=== PATIENT | female | born 1970 | race Two or more races ===

== ENCOUNTER 2016-06-13 15:46 | Inpatient (IN) | payer OTHER ==
[2016-06-13 16:10] VITALS: BMI 19.5
--- NOTE | 2016-06-13 17:13 | HP ---
CIWA Score - CIWA Score Nausea/Vomitin Muscle Tremors: 3 Anxiety: 3 Agitation: 3 Paroxysmal Sweats: 2 Orientation: 0-Oriented Tacttile Disturbances: 2-Mild Itch/Numbness/Burn Auditory Disturbances: 2-Mild Harshness/Frighten Visual Disturbances: 2-Mild Sensitivity Headache: 2-Mild CIWA-Ar Total Score: 22 Admission ROS BHS - HPI Chief Complaint: i need help from alcohol and cocaine Allergies/Adverse Reactions: Allergies Allergy/AdvReac Type Severity Reaction Status Date / Time thiamine (vitamin B1) AdvReac Itching Verified 06/13/16 17:15 History of Present Illness: this 45 years old female with alcohol dependence and cocaine dependence, withdrawal symptom,last detox [facility] 04/01/16 to 04/06/16 syncope alcohol related type 2 dm anxiety and depression nicotine dependence relapsed for last 2 months Exam Limitations: No Limitations - Ebola screening Have you traveled outside of the country in the last 21 days: No Have you had contact with anyone from an Ebola affected area: No Have you been sick,other than usual withdrawal symptoms: No Do you have a fever: No - Review of Systems Constitutional: Loss of Appetite, Malaise, Night Sweats, Changes in sleep, Weakness EENT: reports: Nose Congestion Respiratory: reports: No Symptoms reported Cardiac: reports: Palpitations GI: reports: Nausea, Vomiting, Abdominal cramping Musculoskeletal: reports: No Symptoms Reported Integumentary: reports: Dryness Neuro: reports: Headache, Tremors Endocrine: reports: No Symptoms Reported Hematology: reports: No Symptoms Reported Psychiatric: reports: Anxious, Depressed Patient History - Patient Medical History Hx Anemia: No Hx Asthma: Yes Hx Chronic Obstructive Pulmonary Disease (COPD): No Hx Cancer: No Hx Cardiac Disorders: No Hx Congestive Heart Failure: No Hx Hypertension: No Hx Hypercholesterolemia: No Hx Pacemaker: No HX Cerebrovascular Accident: No Hx Seizures: No Hx Dementia: No Hx Diabetes: Yes (on med) Hx Gastrointestinal Disorders: No Hx Liver Disease: No Hx Genitourinary Disorders: No Hx Sexually Transmitted Disorders: No Hx Renal Disease (ESRD): No Hx Thyroid Disease: No Hx Human Immunodeficiency Virus (HIV): No (last 09/25 negative) Hx Hepatitis C: No Hx Depression: Yes (anxiety) Hx Suicide Attempt: No Hx Bipolar Disorder: No Hx Schizophrenia: No Other Medical History: no suicidal,no homicidal - Patient Surgical History Past Surgical History: No Hx Neurologic Surgery: No Hx Cataract Extraction: No Hx Cardiac Surgery: No Hx Lung Surgery: No Hx Breast Surgery: No Hx Breast Biopsy: No Hx Abdominal Surgery: No Hx Appendectomy: No Hx Cholecystectomy: No Hx Genitourinary Surgery: No Hx Section: No Hx Orthopedic Surgery: No Hx Hysterectomy: No Anesthesia Reaction: No - PPD History Previous Implant?: Yes Documented Results: Negative w/proof Date: 11/02/15 Results: 0 mm PPD to be Administered?: No - Reproductive History Last Menstrual Period: 03/21/16 Patient : No - Smoking Cessation Smoking history: Former smoker Have you smoked in the past 12 months: Yes Aproximately how many cigarettes per day: 7 If you are a former smoker, when did you quit?: 03/2016 Cigars Per Day: 0 Hx Chewing Tobacco Use: No Initiated information on smoking cessation: Yes 'Breaking Loose' booklet given: 06/13/16 - Substance & Tx. History Hx Alcohol Use: Yes Hx Substance Use: Yes Substance Use Type: Alcohol, Cocaine Hx Substance Use Treatment: Yes ([facility] 04/01/16 to 04/06/16) - Substances Abused Alcohol Route: Oral Frequency: Daily Amount used: 4 pints Vodka Age of first use: 17 Date of Last Use: 06/12/16 Cocaine Route: Inhalation Frequency: Daily Amount used: 2 bags Age of first use: 19 Date of Last Use: 06/12/16 Family Disease History - Family Disease History Family Disease History: Diabetes: Father (HTN,HYPERCHOLESTEROLEMIA), Mother (HTN ,HYPERCHOLESTEROLEMIA), Heart Disease: Father, Mother Admission Physical Exam [facility] - Vital Signs Vital Signs: Vital Signs - 24 hr 06/13/16 16:07 Temperature 95.6 F L Pulse Rate 101 H Respiratory 20 Rate Blood Pressure 110/68 - Physical General Appearance: Yes: Moderate Distress, Tremorous, Irritable, Sweating, Anxious HEENTM: Yes: Nasal Congestion Respiratory: Yes: Lungs Clear Neck: Yes: Within Normal Limits Breast: Yes: Breast Exam Deferred Cardiology: Yes: Within Normal Limits, Regular Rhythm, Regular Rate, S1, S2 Abdominal: Yes: Within Normal Limits, Normal Bowel Sounds, Non Tender, Flat, Soft Genitourinary: Yes: Within Normal Limits Back: Yes: Muscle Spasm Musculoskeletal: Yes: Back pain, Muscle Pain Extremities: Yes: Tremors Neurological: Yes: safety attendant II-XII NML intact, Fully Oriented, Alert, Motor Strength 5/5 Integumentary: Yes: Within Normal Limits, Dry - Diagnostic (1) Alcohol dependence with uncomplicated withdrawal Current Visit: No Status: Acute (2) Cocaine dependence Current Visit: No Status: Acute Qualifiers: Substance use status: uncomplicated Qualified Code(s): F14.20 - Cocaine dependence, uncomplicated (3) Type II diabetes mellitus Current Visit: No Status: Chronic Qualifiers: Diabetes mellitus complication status: without complication Diabetes mellitus exterminator helper insulin use: with snf use Qualified Code(s): E11.9 - Type 2 diabetes mellitus without complications (4) Nicotine dependence Current Visit: Yes Status: Acute (5) Anxiety and depression Current Visit: Yes Status: Acute (6) Syncope Current Visit: Yes Status: Acute Cleared for Admission S - Detox or Rehab [facility] Level of Care: Medically Managed Detox Regimen/Protocol: Librium S Breath Alcohol Content Breath Alcohol Content: 0 Urine Pregancy Test - Result Urine Test Results: Negative- NO Line Present Urine Drug Screen - Results Drug Screen Negative: No Urine Drug Screen Results: ANNITA-Cocaine
[2016-06-13] MEDS ORDERED: guaiFENesin/D-METHORPHAN HB 10 ML UNIT-DOSE CUPS PO PRN (17:27)
[2016-06-13] MEDS ORDERED: MAGNESIUM CITRATE 300 ML BOTTLE PO PRN (17:27)
[2016-06-13] MEDS ORDERED: ACETAMINOPHEN 325 MG TABLET (FP) PO PRN (17:27)
[2016-06-13] MEDS ORDERED: MAGNESIUM HYDROX 2400MG/30ML ORAL SUSPENSION 30 ML CUP PO PRN (17:27)
[2016-06-13] MEDS ORDERED: chlordiazePOXIDE HCL 25 MG CAPSULE PO PRN (17:27)
[2016-06-13] MEDS ORDERED: LOPERAMIDE HCL 2 MG CAPSULE PO PRN (17:27)
[2016-06-13] MEDS ORDERED: P-EPHED 60MG/TRIPROLIDI 2.5MG TABLET PO PRN (17:27)
[2016-06-13] MEDS ORDERED: MENTHOL/PHENOL 1 EACH UD MM PRN (17:27)
[2016-06-13] MEDS ORDERED: chlordiazePOXIDE HCL 25 MG CAPSULE PO ONE (17:27)
[2016-06-13] MEDS ORDERED: ALBUTEROL SO4 6.7 GM HFA INHALER IH PRN (17:30)
[2016-06-13] MEDS ORDERED: INSULIN (NOVOLOG) ASPART 100 UNITS/ML 10ML VIAL SQ ONE (17:33)
[2016-06-13] MEDS ORDERED: INSULIN (NOVOLOG) ASPART 100 UNITS/ML 10ML VIAL ONE (18:35)
[2016-06-13] MEDS: NICOTINE 21 MG/24 HOURS TOPICAL PATCH TD SCH (18:42)
[2016-06-13] MEDS ORDERED: THIAMINE HCL 100 MG TABLET (FP) PO SCH (22:00)
[2016-06-13] MEDS: diphenhydrAMINE HCL 50 MG CAPSULE PO PRN (22:20)
[2016-06-13] MEDS: chlordiazePOXIDE HCL 25 MG CAPSULE PO SCH (22:20)
[2016-06-13] MEDS: INSULIN SLIDING SCALE (NOVOLOG) 1 VIAL SQ SCH (23:16)
[2016-06-14 00:16] LABS: URINE APPEARANCE CLEAR; URINE BILIRUBIN NEGATIVE (NEGATIVE); URINE COLOR STRAW; URINE GLUCOSE (UA) 3+ (NEGATIVE); URINE KETONE NEGATIVE (NEGATIVE); URINE LEUK ESTERASE NEGATIVE (NEGATIVE); URINE NITRITE NEGATIVE (NEGATIVE); URINE PROTEIN NEGATIVE (NEGATIVE); URINE UROBILINOGEN NEGATIVE E.U./dl (0.2-1.0)
[2016-06-14 00:33] LABS: URINE BLOOD 1+ (NEGATIVE)
[2016-06-14 01:42] LABS: URINE BACTERIA RARE /hpf (NONE SEEN); URINE MUCUS RARE; URINE RBC 2 /hpf (0-3); URINE WBC 2 /hpf (3-5)
[2016-06-14] MEDS: chlordiazePOXIDE HCL 25 MG CAPSULE PO SCH ×4 (05:17→22:10)
[2016-06-14] MEDS ORDERED: INSULIN (NOVOLOG) ASPART 100 UNITS/ML 10ML VIAL ONE ×4 (07:49→22:13)
[2016-06-14] MEDS: INSULIN SLIDING SCALE (NOVOLOG) 1 VIAL SQ SCH ×4 (07:54→22:11)
--- NOTE | 2016-06-14 09:38 | PN ---
S CIWA - CIWA Score Nausea/Vomitin Muscle Tremors: 3 Anxiety: 3 Agitation: 2 Paroxysmal Sweats: 1-Minimal Palms Moist Orientation: 0-Oriented Tacttile Disturbances: 1-Very Mild Itch/Numbness Auditory Disturbances: 1-Very Mild Visual Disturbances: 1-Very Mild Sensitivity Headache: 2-Mild CIWA-Ar Total Score: 17 BHS Progress Note (SOAP) Subjective: ALERT,IRRITABLE,ANXIOUS,INTERRUPTED SLEEP,TREMOR Objective: 06/14/16 09:36 Vital Signs Temperature 97.1 F L 06/14/16 06:31 Pulse Rate 97 H 06/14/16 06:31 Respiratory Rate 20 06/14/16 06:31 Blood Pressure 125/67 06/14/16 06:31 O2 Sat by Pulse Oximetry (%) EKG NSR,NORMAL ECG 06/14/16 09:37 Laboratory Last Values POC Glucometer 111 UNITS (()) 06/13/16 21:09 Urine Color Straw 06/13/16 23:58 Urine Appearance Clear 06/13/16 23:58 Urine pH 5.0 (5.0-8.0) 06/13/16 23:58 Ur Specific [place] 1.029 (1.001-1.035) 06/13/16 23:58 Urine Protein Negative (NEGATIVE) 06/13/16 23:58 Urine Glucose (UA) 3+ (NEGATIVE) H 06/13/16 23:58 Urine Ketones Negative (NEGATIVE) 06/13/16 23:58 Urine Blood 1+ (NEGATIVE) H 06/13/16 23:58 Urine Nitrite Negative (NEGATIVE) 06/13/16 23:58 Urine Bilirubin Negative (NEGATIVE) 06/13/16 23:58 Urine Urobilinogen Negative E.U./dl (0.2-1.0) 06/13/16 23:58 Ur Leukocyte Esterase Negative (NEGATIVE) 06/13/16 23:58 Urine RBC 2 /hpf (0-3) 06/13/16 23:58 Urine WBC 2 /hpf (3-5) 06/13/16 23:58 Ur Epithelial Cells Rare /hpf (FEW) 06/13/16 23:58 Urine Bacteria Rare /hpf (NONE SEEN) 06/13/16 23:58 Urine Mucus Rare 06/13/16 23:58 Assessment: 06/14/16 09:37 WITHDRAWAL SYMPTOM Plan: CONTINUE DETOX
[2016-06-14] MEDS ORDERED: metFORMIN HCL 500 MG TABLET (FP) PO SCH (10:00)
[2016-06-14 10:16] LABS: MCH 31.7 pg (25.7-33.7); MCHC 33.6 g/dl (32.0-36.0); MEAN CELL VOLUME 94.5 fl (80-96); MEAN PLT VOLUME 9.3 fl (7.5-11.1); PLATELET COUNT 223 K/MM3 (134-434); RDW 12.8 % (11.6-15.6); WHITE BLOOD COUNT 6.4 K/mm3 (4.0-10.0)
[2016-06-14] MEDS: PRENATAL VITAMINS W/ FOLIC ACID TABLET (FP) PO SCH (10:34)
[2016-06-14] MEDS: NICOTINE 21 MG/24 HOURS TOPICAL PATCH TD SCH (10:34)
[2016-06-14 10:47] LABS: ALBUMIN 3.1 g/dl (3.4-5.0); ALK PHOS 94 U/L (45-117); ANION GAP 13 (8-16); BILIRUBIN,TOTAL 0.2 mg/dL (0.2-1.0); CALCIUM 8.5 mg/dL (8.5-10.1); CO2 25 mmol/L (21-32); CREATININE 0.9 mg/dL (0.55-1.02); GLUCOSE,RANDOM 263 mg/dL (74-106); SGOT/AST 12 U/L (15-37); SGPT/ALT 16 U/L (12-78)
[2016-06-14] MEDS: IBUPROFEN 400 MG TABLET (FP) PO PRN (17:34)
[2016-06-14] MEDS ORDERED: THIAMINE HCL 100 MG TABLET (FP) PO SCH (22:00)
[2016-06-14] MEDS: diphenhydrAMINE HCL 50 MG CAPSULE PO PRN (22:15)
[2016-06-14] MEDS: NICOTINE POLACRILEX 2 MG GUM BC PRN (22:16)
[2016-06-15] MEDS: diphenhydrAMINE HCL 50 MG CAPSULE PO PRN ×2 (00:28→23:19)
[2016-06-15] MEDS: chlordiazePOXIDE HCL 25 MG CAPSULE PO SCH ×3 (05:20→17:14)
[2016-06-15] MEDS ORDERED: INSULIN (NOVOLOG) ASPART 100 UNITS/ML 10ML VIAL ONE ×4 (07:50→21:41)
[2016-06-15] MEDS: INSULIN SLIDING SCALE (NOVOLOG) 1 VIAL SQ SCH ×4 (07:51→22:42)
--- NOTE | 2016-06-15 09:57 | CONSULT ---
[facility] Psychiatric Consult - Data Date of interview: 06/15/16 Admission source: [facility] Identifying data: This is 45 years old female with psychiatric hospitalization history intoxicated with: AQlcohol. Cocaine and Cannabis Substance Abuse History: - Smoking Cessation. Smoking history: Former smoker. Have you smoked in the past 12 months: Yes. Aproximately how many cigarettes per day: 7. If you are a former smoker, when did you quit?: 03/2016. Cigars Per Day: 0. Hx Chewing Tobacco Use: No. Initiated information on smoking cessation: Yes. 'Breaking Loose' booklet given: 06/13/16. - Substance & Tx. History. Hx Alcohol Use: Yes. Hx Substance Use: Yes. Substance Use Type: Alcohol, Cocaine. Hx Substance Use Treatment: Yes ([facility] 04/01/16 to 04/06/16). - Substances Abused. Alcohol. Route: Oral. Frequency: Daily. Amount used: 4 pints Vodka. Age of first use: 17. Date of Last Use: 06/12/16. Cocaine. Route: Inhalation. Frequency: Daily. Amount used: 2 bags. Age of first use: 19. Date of Last Use: 06/12/16 Medical History: HTN, Head injury history, Hyperlipidemia, DM-2 Psychiatric History: Patient reports history of depression and anxiety, reports most recent psychiatric admission on 2014 at [facility], reports taking prior to admikssion: no medications Physical/Sexual Abuse/Trauma History: Denies Additional Comment: Observation. Detox Unit Care Protocol Mental Status Exam - Mental Status Exam Alert and Oriented to: Person Cognitive Function: Fair Patient Appearance: Unkempt Mood: Sad Affect: Flat Patient Behavior: Sedated Speech Pattern: Delayed Voice Loudness: Mildly Soft/Quiet Thought Process: Circumstantial Thought Disorder: Being Controlled Hallucinations: Denies Suicidal Ideation: Denies Homicidal Ideation: Denies Insight/Judgement: Fair Sleep: Difficulty falling asleep Appetite: Fair Muscle strength/Tone: Mild Hypotonicity Gait/Station: Shuffling Additional Comments: Observation. Detox Unit Care Protocol Psychiatric Findings - Problem List ([place] 1, 2,3) (1) Anxiety and depression Current Visit: Yes Status: Acute (2) Nicotine dependence Current Visit: Yes Status: Acute (3) Alcohol dependence with uncomplicated withdrawal Current Visit: No Status: Acute (4) Cocaine dependence Current Visit: No Status: Acute Qualifiers: Substance use status: uncomplicated Qualified Code(s): F14.20 - Cocaine dependence, uncomplicated (5) Marijuana dependence Current Visit: No Status: Acute (6) Mood disorder Current Visit: No Status: Acute (7) Substance-induced sleep disorder Current Visit: No Status: Acute (8) Cocaine abuse without complication Current Visit: No Status: Chronic (9) Substance induced mood disorder Current Visit: No Status: Suspected - Initial Treatment Plan Initial Treatment Plan: Observation. Detox Unit Care Protocol
--- NOTE | 2016-06-15 10:10 | PN ---
[facility] CIWA - CIWA Score Nausea/Vomitin-No Nausea/No Vomiting Muscle Tremors: 4-Moderate,w/Arms Extend Anxiety: 3 Agitation: 4-Moderately Restless Paroxysmal Sweats: 3 Orientation: 0-Oriented Tacttile Disturbances: 0-None Auditory Disturbances: 0-None Visual Disturbances: 0-None Headache: 1-Very Mild CIWA-Ar Total Score: 15 S Progress Note (SOAP) Subjective: body aches sweats shakes interrupted sleep agitation headache Objective: 06/15/16 10:09 Vital Signs Temperature 96.8 F L 06/15/16 06:00 Pulse Rate 105 H 06/15/16 06:00 Respiratory Rate 18 06/15/16 06:00 Blood Pressure 139/76 06/15/16 06:00 O2 Sat by Pulse Oximetry (%) Laboratory Tests 06/13/16 06/13/16 06/13/16 16:48 21:09 23:58 WBC RBC Hgb Hct MCV MCHC RDW Plt Count MPV Sodium Potassium Chloride Carbon Dioxide Anion Gap BUN Creatinine Creat Clearance w eGFR POC Glucometer 476 111 Random Glucose Calcium Total Bilirubin AST ALT Alkaline Phosphatase Total Protein Albumin Urine Color Straw Urine Appearance Clear Urine pH 5.0 Ur Specific [place] 1.029 Urine Protein Negative Urine Glucose (UA) 3+ H Urine Ketones Negative Urine Blood 1+ H Urine Nitrite Negative Urine Bilirubin Negative Urine Urobilinogen Negative Ur Leukocyte Esterase Negative Urine RBC 2 Urine WBC 2 Ur Epithelial Cells Rare Urine Bacteria Rare Urine Mucus Rare RPR Titer 06/14/16 06/14/16 06/14/16 05:18 08:00 08:00 WBC 6.4 RBC 3.82 Hgb 12.1 Hct 36.1 MCV 94.5 MCHC 33.6 RDW 12.8 Plt Count 223 MPV 9.3 Sodium 138 Potassium 3.7 Chloride 100 Carbon Dioxide 25 Anion Gap 13 BUN 16 Creatinine 0.9 D Creat Clearance w eGFR > 60 POC Glucometer 200 Random Glucose 263 H D Calcium 8.5 Total Bilirubin 0.2 D AST 12 L ALT 16 Alkaline Phosphatase 94 Total Protein 6.0 L Albumin 3.1 L Urine Color Urine Appearance Urine pH Ur Specific [place] Urine Protein Urine Glucose (UA) Urine Ketones Urine Blood Urine Nitrite Urine Bilirubin Urine Urobilinogen Ur Leukocyte Esterase Urine RBC Urine WBC Ur Epithelial Cells Urine Bacteria Urine Mucus RPR Titer 06/14/16 06/14/1606/14/17 08:00 11:13 16:36 WBC RBC Hgb Hct MCV MCHC RDW Plt Count MPV Sodium Potassium Chloride Carbon Dioxide Anion Gap BUN Creatinine Creat Clearance w eGFR POC Glucometer 276 210 Random Glucose Calcium Total Bilirubin AST ALT Alkaline Phosphatase Total Protein Albumin Urine Color Urine Appearance Urine pH Ur Specific [place] Urine Protein Urine Glucose (UA) Urine Ketones Urine Blood Urine Nitrite Urine Bilirubin Urine Urobilinogen Ur Leukocyte Esterase Urine RBC Urine WBC Ur Epithelial Cells Urine Bacteria Urine Mucus RPR Titer Nonreactive 06/14/16 06/15/16 20:43 05:18 WBC RBC Hgb Hct MCV MCHC RDW Plt Count MPV Sodium Potassium Chloride Carbon Dioxide Anion Gap BUN Creatinine Creat Clearance w eGFR POC Glucometer 264 331 Random Glucose Calcium Total Bilirubin AST ALT Alkaline Phosphatase Total Protein Albumin Urine Color Urine Appearance Urine pH Ur Specific [place] Urine Protein Urine Glucose (UA) Urine Ketones Urine Blood Urine Nitrite Urine Bilirubin Urine Urobilinogen Ur Leukocyte Esterase Urine RBC Urine WBC Ur Epithelial Cells Urine Bacteria Urine Mucus RPR Titer awake/alert ambulating no acute distress Assessment: 06/15/16 10:09 withdrawal sx Plan: continue detox increase fluids motrin 600mg prn
[2016-06-15] MEDS: NICOTINE 21 MG/24 HOURS TOPICAL PATCH TD SCH (10:14)
[2016-06-15] MEDS: ESCITALOPRAM OXALATE 10 MG TABLET (FP) PO SCH (10:14)
[2016-06-15] MEDS: PRENATAL VITAMINS W/ FOLIC ACID TABLET (FP) PO SCH (10:14)
[2016-06-15] MEDS ORDERED: FLUCONAZOLE 50 MG TABLET PO ONE (10:15)
[2016-06-15] MEDS: NICOTINE POLACRILEX 2 MG GUM BC PRN (10:18)
--- NOTE | 2016-06-15 10:18 | PN ---
BHS Progress Note Note: pt c/o vaginal itch diflucan 150mg x one monistat vaginal cream order
[2016-06-15] MEDS: IBUPROFEN 400 MG TABLET (FP) PO PRN (10:20)
--- NOTE | 2016-06-15 11:31 | EKG ---
Test Reason : Blood Pressure : / mmHG Vent. Rate : 097 BPM Atrial Rate : 097 BPM P-R Int : 116 ms QRS Dur : 088 ms QT Int : 352 ms P-R-T Axes : 061 063 036 degrees QTc Int : 447 ms NORMAL SINUS RHYTHM NORMAL ECG NO PREVIOUS ECGS AVAILABLE Confirmed by ANTOINETTE KWAN MD ([id number]) on 06/15/2016 11:31:34 AM Referred By: Confirmed By:ANTOINETTE KWAN MD
[2016-06-15] MEDS: metFORMIN HCL 500 MG TABLET (FP) PO SCH (16:50)
[2016-06-15] MEDS: MICONAZOLE NITRATE 2% VAGINAL CREAM 45 GM TUBE VG SCH (22:40)
[2016-06-15] MEDS: chlordiazePOXIDE 5 MG CAPSULE PO SCH (22:41)
[2016-06-16] MEDS: diphenhydrAMINE HCL 50 MG CAPSULE PO PRN ×2 (02:06→22:27)
[2016-06-16] MEDS: chlordiazePOXIDE 5 MG CAPSULE PO SCH ×3 (05:50→17:43)
[2016-06-16] MEDS ORDERED: INSULIN (NOVOLOG) ASPART 100 UNITS/ML 10ML VIAL ONE ×2 (07:08→11:20)
[2016-06-16] MEDS: metFORMIN HCL 500 MG TABLET (FP) PO SCH ×2 (07:15→17:43)
[2016-06-16] MEDS: INSULIN SLIDING SCALE (NOVOLOG) 1 VIAL SQ SCH ×4 (07:15→22:25)
[2016-06-16] MEDS: ESCITALOPRAM OXALATE 10 MG TABLET (FP) PO SCH (10:48)
[2016-06-16] MEDS: PRENATAL VITAMINS W/ FOLIC ACID TABLET (FP) PO SCH (10:48)
[2016-06-16] MEDS: NICOTINE 21 MG/24 HOURS TOPICAL PATCH TD SCH (10:48)
--- NOTE | 2016-06-16 11:53 | PN ---
BHS Progress Note (SOAP) Subjective: interrupted sleep, sweats, nasal congestion, nausea Objective: 06/16/16 11:50 Last Vital Signs Temp Pulse Resp BP Pulse Ox 97.4 F L 100 H 18 124/75 06/16/16 10:42 06/16/16 10:42 06/16/16 10:42 06/16/16 10:42 Laboratory Tests 06/13/16 06/13/16 06/13/16 16:48 21:09 23:58 WBC RBC Hgb Hct MCV MCHC RDW Plt Count MPV Sodium Potassium Chloride Carbon Dioxide Anion Gap BUN Creatinine Creat Clearance w eGFR POC Glucometer 476 111 Random Glucose Calcium Total Bilirubin AST ALT Alkaline Phosphatase Total Protein Albumin Urine Color Straw Urine Appearance Clear Urine pH 5.0 Ur Specific [place] 1.029 Urine Protein Negative Urine Glucose (UA) 3+ H Urine Ketones Negative Urine Blood 1+ H Urine Nitrite Negative Urine Bilirubin Negative Urine Urobilinogen Negative Ur Leukocyte Esterase Negative Urine RBC 2 Urine WBC 2 Ur Epithelial Cells Rare Urine Bacteria Rare Urine Mucus Rare RPR Titer Hepatitis C Antibody 06/14/16 06/14/16 06/14/16 05:18 08:00 08:00 WBC 6.4 RBC 3.82 Hgb 12.1 Hct 36.1 MCV 94.5 MCHC 33.6 RDW 12.8 Plt Count 223 MPV 9.3 Sodium Potassium Chloride Carbon Dioxide Anion Gap BUN Creatinine Creat Clearance w eGFR POC Glucometer 200 Random Glucose Calcium Total Bilirubin AST ALT Alkaline Phosphatase Total Protein Albumin Urine Color Urine Appearance Urine pH Ur Specific [place] Urine Protein Urine Glucose (UA) Urine Ketones Urine Blood Urine Nitrite Urine Bilirubin Urine Urobilinogen Ur Leukocyte Esterase Urine RBC Urine WBC Ur Epithelial Cells Urine Bacteria Urine Mucus RPR Titer Hepatitis C Antibody 0.1 06/14/16 06/14/16 06/14/16 08:00 08:00 11:13 WBC RBC Hgb Hct MCV MCHC RDW Plt Count MPV Sodium 138 Potassium 3.7 Chloride 100 Carbon Dioxide 25 Anion Gap 13 BUN 16 Creatinine 0.9 D Creat Clearance w eGFR > 60 POC Glucometer 276 Random Glucose 263 H D Calcium 8.5 Total Bilirubin 0.2 D AST 12 L ALT 16 Alkaline Phosphatase 94 Total Protein 6.0 L Albumin 3.1 L Urine Color Urine Appearance Urine pH Ur Specific [place] Urine Protein Urine Glucose (UA) Urine Ketones Urine Blood Urine Nitrite Urine Bilirubin Urine Urobilinogen Ur Leukocyte Esterase Urine RBC Urine WBC Ur Epithelial Cells Urine Bacteria Urine Mucus RPR Titer Nonreactive Hepatitis C Antibody 06/14/16 06/14/16 06/15/16 16:36 20:43 05:18 WBC RBC Hgb Hct MCV MCHC RDW Plt Count MPV Sodium Potassium Chloride Carbon Dioxide Anion Gap BUN Creatinine Creat Clearance w eGFR POC Glucometer 210 264 331 Random Glucose Calcium Total Bilirubin AST ALT Alkaline Phosphatase Total Protein Albumin Urine Color Urine Appearance Urine pH Ur Specific [place] Urine Protein Urine Glucose (UA) Urine Ketones Urine Blood Urine Nitrite Urine Bilirubin Urine Urobilinogen Ur Leukocyte Esterase Urine RBC Urine WBC Ur Epithelial Cells Urine Bacteria Urine Mucus RPR Titer Hepatitis C Antibody 06/15/16 06/15/16 06/15/16 11:35 16:33 21:34 WBC RBC Hgb Hct MCV MCHC RDW Plt Count MPV Sodium Potassium Chloride Carbon Dioxide Anion Gap BUN Creatinine Creat Clearance w eGFR POC Glucometer 337 298 191 Random Glucose Calcium Total Bilirubin AST ALT Alkaline Phosphatase Total Protein Albumin Urine Color Urine Appearance Urine pH Ur Specific [place] Urine Protein Urine Glucose (UA) Urine Ketones Urine Blood Urine Nitrite Urine Bilirubin Urine Urobilinogen Ur Leukocyte Esterase Urine RBC Urine WBC Ur Epithelial Cells Urine Bacteria Urine Mucus RPR Titer Hepatitis C Antibody 06/16/16 11:08 WBC RBC Hgb Hct MCV MCHC RDW Plt Count MPV Sodium Potassium Chloride Carbon Dioxide Anion Gap BUN Creatinine Creat Clearance w eGFR POC Glucometer 321 Random Glucose Calcium Total Bilirubin AST ALT Alkaline Phosphatase Total Protein Albumin Urine Color Urine Appearance Urine pH Ur Specific [place] Urine Protein Urine Glucose (UA) Urine Ketones Urine Blood Urine Nitrite Urine Bilirubin Urine Urobilinogen Ur Leukocyte Esterase Urine RBC Urine WBC Ur Epithelial Cells Urine Bacteria Urine Mucus RPR Titer Hepatitis C Antibody pt aox3 + nasal congestion Assessment: 06/16/16 11:51 withdrawaal sx;s dm Plan: cont. detiox increase fluids bgm monitoring actified
[2016-06-16] MEDS ORDERED: INSULIN (NOVOLOG MIX 70/30) 100 UNITS/ML MDV SQ ONE ×2 (17:00→21:22)
[2016-06-16] MEDS: NICOTINE POLACRILEX 2 MG GUM BC PRN ×2 (17:47→22:28)
[2016-06-16] MEDS: MAG HYDROX/AL HYDROX/SIMETH 30 ML UNIT-DOSE CUP PO PRN (20:07)
[2016-06-16] MEDS: MICONAZOLE NITRATE 2% VAGINAL CREAM 45 GM TUBE VG SCH (22:22)
[2016-06-16] MEDS: chlordiazePOXIDE HCL 10 MG CAPSULE PO SCH (22:24)
[2016-06-17] MEDS: diphenhydrAMINE HCL 50 MG CAPSULE PO PRN (01:07)
[2016-06-17] MEDS: MAG HYDROX/AL HYDROX/SIMETH 30 ML UNIT-DOSE CUP PO PRN (04:59)
[2016-06-17] MEDS: chlordiazePOXIDE HCL 10 MG CAPSULE PO SCH ×2 (06:19→10:35)
[2016-06-17] MEDS: hydrOXYzine PAMOATE 50 MG CAPSULE (FP) PO PRN ×2 (06:21→10:38)
[2016-06-17] MEDS: INSULIN SLIDING SCALE (NOVOLOG) 1 VIAL SQ SCH ×2 (08:37→11:05)
--- NOTE | 2016-06-17 08:56 | DS ---
[facility] Detox Discharge Summary Admission Date: 06/13/16 Discharge Date: 06/17/16 - History Present History: Alcohol Dependence, Cannabis Dependence, Cocaine Dependence - Physical Exam Results Vital Signs: Vital Signs Temperature 97.2 F L 06/17/16 06:00 Pulse Rate 85 06/17/16 06:00 Respiratory Rate 18 06/17/16 06:00 Blood Pressure 113/75 06/17/16 06:00 O2 Sat by Pulse Oximetry (%) - Treatment Hospital Course: Detox Protocol Followed, Detoxed Safely, Responded well, Discharged Condition Good, Rehab Referral Accepted - Medication Discharge Medications: Ambulatory Orders Albuterol Sulfate Inhaler - [Ventolin HFA Inhaler -] 2 inh IH Q4H PRN #1 inhaler 04/06/16 Metformin HCl [Glucophage -] 500 mg PO BID #60 tablet 04/06/16 Escitalopram Oxalate [Lexapro -] 5 mg PO DAILY 06/13/16 Escitalopram Oxalate [Lexapro -] 10 mg PO DAILY #30 tablet 06/15/16 - Diagnosis (1) Anxiety and depression Current Visit: Yes Status: Acute (2) Nicotine dependence Current Visit: Yes Status: Chronic Qualifiers: Nicotine product type: cigarettes Substance use status: uncomplicated Qualified Code(s): F17.210 - Nicotine dependence, cigarettes, uncomplicated (3) Syncope Current Visit: Yes Status: Acute (4) Alcohol dependence with uncomplicated withdrawal Current Visit: Yes Status: Chronic (5) Cocaine dependence Current Visit: Yes Status: Chronic Qualifiers: Substance use status: uncomplicated Qualified Code(s): F14.20 - Cocaine dependence, uncomplicated (6) Depression Current Visit: No Status: Acute (7) Marijuana dependence Current Visit: Yes Status: Chronic (8) Mood disorder Current Visit: No Status: Acute (9) Substance-induced sleep disorder Current Visit: No Status: Acute (10) Vaginitis due to Stephany Current Visit: Yes Status: Acute (11) Cocaine abuse without complication Current Visit: No Status: Chronic (12) Diabetes 1.5, managed as type 1 Current Visit: No Status: Chronic (13) Insomnia Current Visit: No Status: Chronic (14) Type II diabetes mellitus Current Visit: Yes Status: Chronic Qualifiers: Diabetes mellitus complication status: without complication Diabetes mellitus long-term insulin use: with long-term use Qualified Code(s): E11.9 - Type 2 diabetes mellitus without complications; Z79.4 - halfway ( current) use of insulin (15) Depressed affect Current Visit: No Status: Suspected (16) Substance induced mood disorder Current Visit: No Status: Suspected - AMA Did Patient Leave Against Medical Advice: No (rehab 3e)
[2016-06-17 10:10] VITALS: BP 103/60; PULSE 96; TEMP 98.6
[2016-06-17] MEDS: ESCITALOPRAM OXALATE 10 MG TABLET (FP) PO SCH (10:35)
[2016-06-17] MEDS: NICOTINE 21 MG/24 HOURS TOPICAL PATCH TD SCH (10:35)
[2016-06-17] MEDS: PRENATAL VITAMINS W/ FOLIC ACID TABLET (FP) PO SCH (10:35)
[2016-06-17] MEDS: metFORMIN HCL 500 MG TABLET (FP) PO SCH (11:05)
[2016-06-17] MEDS ORDERED: INSULIN (NOVOLOG) ASPART 100 UNITS/ML 10ML VIAL ONE (11:07)
== END 2016-06-17 12:04 | disposition other institution (70) | DRG 774 ==
LOC: YASAS 15:46 → Y6N 16:40
PROVIDERS: ADMIT Internal Medicine; ATTEND Internal Medicine Addiction Medicine
PROC: HZ2ZZZZ Detoxification Services for Substance Abuse Treatment (ICD-10-PCS; principal; 2016-06-13)
DX: F10.230 Alcohol dependence with withdrawal, uncomplicated (principal); F14.20 Cocaine dependence, uncomplicated; F12.20 Cannabis dependence, uncomplicated; F17.210 Nicotine dependence, cigarettes, uncomplicated; F19.24 Other psychoactive substance dependence with psychoactive substance-induced mood disorder; F19.282 Other psychoactive substance dependence with psychoactive substance-induced sleep disorder; F39 Unspecified mood [affective] disorder; F32.9 Major depressive disorder, single episode, unspecified; F41.8 Other specified anxiety disorders; B37.3 Candidiasis of vulva and vagina; E11.9 Type 2 diabetes mellitus without complications; Z79.4 Long term (current) use of insulin; G47.00 Insomnia, unspecified; Z86.79 Personal history of other diseases of the circulatory system
CPT/HCPCS: 36415; 80053; 81003; 81015; 85027; 86593; 93005; 93010

== ENCOUNTER 2016-06-17 12:29 | Inpatient (IN) | payer OTHER ==
[2016-06-17 13:54] VITALS: BMI 28.1
--- NOTE | 2016-06-17 14:03 | HP ---
Psychiatrist Admission - Data Date of interview: 06/17/16 Admission source: [address] [place] [address] detox Identifying data: This is the second admission to [address] [place] [address] rehabilitation for this 45 years old single H mother of 2 (20 and 16 years old), resides in [address],supported by [employer]. Medical History: HTN,DM. Psychiatric History: Patient started to see a psychiatrist on the regular basis about 3 due to depression,alcohol,cocaine abuse.She was on psychotropic medications while in drug rehabilitation program.She was on Ambien 10 mg po hs, Seroquel and Trazodone on and off. Patient started on Lexapro 10 mg po daily while in detox on [address] [place] [address] prescribed by . Physical/Sexual Abuse/Trauma History: denies Vital Signs: Vital Signs - 24 hr 06/17/16 06/17/16 12:34 13:52 Temperature 98.3 F 98.3 F Pulse Rate 102 H 102 H Respiratory 18 18 Rate Blood Pressure 113/73 113/73 Allergies/Adverse Reactions: Allergies Allergy/AdvReac Type Severity Reaction Status Date / Time thiamine (vitamin B1) AdvReac Itching Verified 06/13/16 17:15 Date of last physical exam: 06/13/16 Concur with the findings of this exam: Yes - Substance Abuse/Tx History Hx Alcohol Use: Yes (reports drinking since 17 yo,vodka 2 pints daily) Hx Substance Use: Yes (cocaine/crack since 19 yo,usually while drinking) Substance Use Type: Alcohol, Cocaine Hx Substance Use Treatment: Yes (completed tis program in Jan 2016) - Admission Criteria Previous failed treatment: Yes Poor recovery environment: Yes Comorbidities: Yes Lacks judgement: Yes Mental Status Exam - Mental Status Exam Alert and Oriented to: Time, Place, Person Cognitive Function: Grossly Intact Patient Appearance: Unkempt Mood: Sad, Anxious Affect: Mood Congruent, Labile Patient Behavior: Cooperative Speech Pattern: Clear Voice Loudness: Normal Thought Process: Goal Oriented Thought Disorder: Not Present Hallucinations: Denies Suicidal Ideation: Denies Homicidal Ideation: Denies Insight/Judgement: Fair Sleep: Difficulty falling asleep Appetite: Good Muscle strength/Tone: Normal Gait/Station: Normal Psychiatric Findings - Problem List ([place] 1, 2,3) (1) Substance-induced sleep disorder Current Visit: Yes Status: Chronic (2) Vaginitis due to Stephany Current Visit: Yes Status: Chronic Comment: clotrimazole vaginal (3) Alcohol dependence with uncomplicated withdrawal Current Visit: Yes Status: Chronic (4) Cocaine abuse without complication Current Visit: Yes Status: Chronic (5) Psychoactive substance-induced mood disorder Current Visit: Yes Status: Chronic - Initial Treatment Plan Initial Treatment Plan: Continue Lexapro 10 mg po daily,add Seroquel 50 mg po hs. Will monitor progress.
[2016-06-17] MEDS ORDERED: guaiFENesin/D-METHORPHAN HB 10 ML UNIT-DOSE CUPS PO PRN (15:14)
[2016-06-17] MEDS ORDERED: MENTHOL/PHENOL 1 EACH UD MM PRN (15:14)
[2016-06-17] MEDS ORDERED: MAGNESIUM CITRATE 300 ML BOTTLE PO PRN (15:14)
[2016-06-17] MEDS ORDERED: LOPERAMIDE HCL 2 MG CAPSULE PO PRN (15:14)
[2016-06-17] MEDS ORDERED: P-EPHED 60MG/TRIPROLIDI 2.5MG TABLET PO PRN (15:14)
[2016-06-17] MEDS ORDERED: ALBUTEROL SO4 6.7 GM HFA INHALER IH PRN (15:15)
--- NOTE | 2016-06-17 15:20 | HP ---
[facility] Assess/Revision - Admission History Admitted to Rehab from: [facility] Date of Admission to Rehab: 06/17/16 - Vital signs Vital Signs: Vital Signs Period Temp Pulse Resp BP Sys/Mcdermott Pulse Ox Last 24 Hr 98.3 F-98.3 F 102-102 18-18 113-113/73-73 - Findings Detox History & Physical reviewed: Yes Concur with findings: Yes
[2016-06-17] MEDS ORDERED: INSULIN (NOVOLOG) ASPART 100 UNITS/ML 10ML VIAL ONE ×2 (17:05→23:12)
[2016-06-17] MEDS: INSULIN (NOVOLOG) ASPART 100 UNITS/ML 10ML VIAL SQ SCH (17:17)
[2016-06-17] MEDS: metFORMIN HCL 500 MG TABLET (FP) PO SCH (17:17)
[2016-06-17] MEDS: HYDROCORTISONE 1% TOPICAL CREAM 30 GM TUBE TP SCH ×2 (17:20→21:53)
[2016-06-17] MEDS: diphenhydrAMINE HCL 50 MG CAPSULE PO PRN (21:54)
[2016-06-18] MEDS: diphenhydrAMINE HCL 50 MG CAPSULE PO PRN (00:46)
[2016-06-18] MEDS: metFORMIN HCL 500 MG TABLET (FP) PO SCH ×2 (06:48→17:15)
[2016-06-18] MEDS ORDERED: INSULIN (NOVOLOG) ASPART 100 UNITS/ML 10ML VIAL ONE ×3 (06:50→23:43)
[2016-06-18] MEDS: INSULIN (NOVOLOG) ASPART 100 UNITS/ML 10ML VIAL SQ SCH ×2 (06:50→17:15)
--- NOTE | 2016-06-18 09:38 | PN ---
[facility] Progress Note Note: Called by the nurse from 3E to order Seroquel 50 mg po hs as per ' s admission note. Seroquel 50 mg po hs.
[2016-06-18] MEDS: NICOTINE 21 MG/24 HOURS TOPICAL PATCH TD SCH (10:57)
[2016-06-18] MEDS: HYDROCORTISONE 1% TOPICAL CREAM 30 GM TUBE TP SCH ×4 (10:57→21:52)
[2016-06-18 11:06] LABS: HIV 1 & 2 AB NEGATIVE; HIV 1 AGp24 NEGATIVE
[2016-06-18] MEDS: IBUPROFEN 400 MG TABLET (FP) PO PRN (11:15)
[2016-06-18] MEDS ORDERED: INFLUENZA VACCINE 45 MCG/0.5 ML (MDV 16-17) IM ONE (12:00)
[2016-06-18] MEDS: ESCITALOPRAM OXALATE 10 MG TABLET (FP) PO SCH (17:30)
[2016-06-18] MEDS: QUEtiapine FUMARATE 50 MG TABLET PO SCH (21:53)
[2016-06-19] MEDS ORDERED: diphenhydrAMINE HCL 25 MG CAPSULE (FP) PO ONE (01:45)
[2016-06-19] MEDS: diphenhydrAMINE HCL 50 MG CAPSULE PO PRN (01:48)
[2016-06-19] MEDS: metFORMIN HCL 500 MG TABLET (FP) PO SCH ×2 (06:39→17:21)
[2016-06-19] MEDS: INSULIN (NOVOLOG) ASPART 100 UNITS/ML 10ML VIAL SQ SCH (06:41)
[2016-06-19] MEDS ORDERED: INSULIN (NOVOLOG) ASPART 100 UNITS/ML 10ML VIAL ONE ×3 (06:41→23:30)
[2016-06-19] MEDS ORDERED: PT OWN MED DRAWER 7, Y5N ONE ×3 (08:51→23:30)
[2016-06-19] MEDS: ESCITALOPRAM OXALATE 10 MG TABLET (FP) PO SCH (11:11)
[2016-06-19] MEDS: HYDROCORTISONE 1% TOPICAL CREAM 30 GM TUBE TP SCH ×4 (11:12→22:02)
[2016-06-19] MEDS: NICOTINE 21 MG/24 HOURS TOPICAL PATCH TD SCH (11:13)
--- NOTE | 2016-06-19 12:12 | PN ---
Psychiatric Progress Note Vital Signs: Vital Signs Period Temp Pulse Resp BP Sys/Mcdermott Pulse Ox Last 24 Hr 97.4 F 90 17-18 110/73 Date of Session: 06/19/16 Chief Complaint:: Anxiety HPI: Patient addresing Alcohol and Cocaine Dependence comorbi with Substance- Induced Mood Disorder And Substance-Induced Sleep Disorder ROS: NIDDM, Stephany vaginitis Current Medications: Active Medications Generic Name Dose Route Start Last Admin Trade Name Freq PRN Reason Stop Dose Admin Acetaminophen 650 mg 06/17/16 15:14 Tylenol - PO Q4H PRN FEVER OR PAIN Al Hydroxide/Mg Hydroxide 30 ml 06/17/16 15:14 Mylanta Oral Suspension - PO Q6H PRN DYSPEPSIA Albuterol Sulfate 2 puff 06/17/16 15:15 Ventolin Hfa Inhaler - IH Q4H PRN SHORTNESS OF BREATH Diphenhydramine HCl 50 mg 06/17/16 15:14 06/19/16 01:48 Benadryl - PO 50 mg HSMR1 PRN Administration FOR ITCHING Escitalopram Oxalate 10 mg 06/18/16 16:45 06/19/16 11:11 Lexapro - PO 10 mg DAILY BETO Administration Eucalyptus/Menthol/Phenol/Sorbitol 1 each 06/17/16 15:14 Cepastat Lozenge - MM Q4H PRN SORE THROAT Guaifenesin 10 ml 06/17/16 15:14 Robitussin Dm - PO Q6H PRN COUGH Hydrocortisone 1 applic 06/17/16 18:00 06/19/16 11:12 Hytone 1% Cream - TP 1 applic QID BETO Administration Hydroxyzine Pamoate 25 mg 06/19/16 11:25 Vistaril - PO Q4H PRN ANXIETY Ibuprofen 400 mg 06/17/16 15:14 06/18/16 11:15 Motrin - PO 400 mg Q6H PRN Administration PAIN Insulin Aspart 0 units 06/17/16 16:30 06/19/16 06:41 Novolog Vial SQ 12 units BIDAC BETO Administration Protocol Loperamide HCl 4 mg 06/17/16 15:14 Imodium - PO Q6H PRN DIARRHEA Magnesium Citrate 300 ml 06/17/16 15:14 Citroma - PO 06/19/16 15:15 Q48H PRN CONSTIPATION Magnesium Hydroxide 30 ml 06/17/16 15:14 Milk Of Magnesia - PO DAILY PRN CONSTIPATION Metformin HCl 500 mg 06/17/16 16:30 06/19/16 06:39 Glucophage - PO 500 mg BIDAC BETO Administration Nicotine 21 mg 06/18/16 10:00 06/19/16 11:13 Nicoderm Patch - TD Not Given DAILY BETO Nicotine Polacrilex 2 mg 06/17/16 15:14 Nicorette Gum - BUC Q2H PRN NICOTINE REPLACEMENT RX Pseudoephedrine/Triprolidine 1 combo 06/17/16 15:14 Actifed - PO TID PRN NASAL CONGESTION Quetiapine Fumarate 50 mg 06/18/16 22:00 06/18/16 21:53 Seroquel - PO Not Given HS BETO Medication(s) Change(s): Start Vistaril 25 mg po Q 4hrs prn for anxiety Current Side Effect: No Lab tests ordered: Yes Lab tests reviewed: Yes Provider note:: Patient reports feeling anxious. Told designer/writer that she has been feeling anxious and would like some medication for it. Anxiolytic properties discussed with patient and she agreed to try it Total face to face time:: 25 Mental Status Exam - Mental Status Exam Alert and Oriented to: Time, Place, Person Cognitive Function: Fair Patient Appearance: Well Groomed Mood: Anxious Patient Behavior: Cooperative Speech Pattern: Clear Voice Loudness: Normal Thought Process: Intact Thought Disorder: Not Present Hallucinations: Denies Suicidal Ideation: Denies Homicidal Ideation: Denies Insight/Judgement: Fair Sleep: Poorly Appetite: Good Muscle strength/Tone: Normal Gait/Station: Normal Psychiatric Treatment Plan - Problem List (1) Alcohol dependence with uncomplicated withdrawal Current Visit: Yes (2) Cocaine abuse without complication Current Visit: Yes (3) Psychoactive substance-induced mood disorder Current Visit: Yes (4) Substance-induced sleep disorder Current Visit: Yes (5) Vaginitis due to Stephany Current Visit: Yes Comment: clotrimazole vaginal (6) Type II diabetes mellitus Current Visit: No Qualifiers: Diabetes mellitus complication status: without complication Diabetes mellitus assistant terminal manager insulin use: with assistant terminal manager use Qualified Code(s): E11.9 - Type 2 diabetes mellitus without complications Initial treatment plan: 1) Start Vistaril 25 m po Q 4hrs prn for anxiety. 2) Monitor progress
[2016-06-19] MEDS: hydrOXYzine PAMOATE 25 MG CAPSULE (FP) PO PRN (13:19)
[2016-06-19] MEDS: INSULIN SLIDING SCALE (NOVOLOG) 1 VIAL SQ SCH ×2 (17:23→22:01)
[2016-06-19] MEDS: QUEtiapine FUMARATE 50 MG TABLET PO SCH (22:01)
[2016-06-19] MEDS: MAG HYDROX/AL HYDROX/SIMETH 30 ML UNIT-DOSE CUP PO PRN (22:13)
[2016-06-20] MEDS: diphenhydrAMINE HCL 50 MG CAPSULE PO PRN (01:57)
[2016-06-20] MEDS: metFORMIN HCL 500 MG TABLET (FP) PO SCH ×2 (06:48→16:58)
[2016-06-20] MEDS: INSULIN SLIDING SCALE (NOVOLOG) 1 VIAL SQ SCH ×4 (06:49→21:48)
[2016-06-20] MEDS ORDERED: INSULIN (NOVOLOG) ASPART 100 UNITS/ML 10ML VIAL ONE ×4 (06:50→21:46)
[2016-06-20] MEDS: MAGNESIUM HYDROX 2400MG/30ML ORAL SUSPENSION 30 ML CUP PO PRN (06:50)
[2016-06-20] MEDS: NICOTINE 21 MG/24 HOURS TOPICAL PATCH TD SCH (09:17)
[2016-06-20] MEDS: ESCITALOPRAM OXALATE 10 MG TABLET (FP) PO SCH (09:17)
[2016-06-20] MEDS: HYDROCORTISONE 1% TOPICAL CREAM 30 GM TUBE TP SCH ×4 (09:18→21:48)
[2016-06-20] MEDS: hydrOXYzine PAMOATE 25 MG CAPSULE (FP) PO PRN ×2 (14:28→19:54)
[2016-06-20] MEDS ORDERED: PT OWN MED DRAWER 7, Y5N ONE (16:31)
[2016-06-20] MEDS: QUEtiapine FUMARATE 50 MG TABLET PO SCH (21:44)
[2016-06-21] MEDS: INSULIN SLIDING SCALE (NOVOLOG) 1 VIAL SQ SCH ×4 (06:38→21:48)
[2016-06-21] MEDS: metFORMIN HCL 500 MG TABLET (FP) PO SCH ×2 (06:38→17:01)
[2016-06-21] MEDS ORDERED: INSULIN (NOVOLOG) ASPART 100 UNITS/ML 10ML VIAL ONE ×4 (06:49→21:48)
[2016-06-21] MEDS: NICOTINE 21 MG/24 HOURS TOPICAL PATCH TD SCH (10:22)
[2016-06-21] MEDS: HYDROCORTISONE 1% TOPICAL CREAM 30 GM TUBE TP SCH ×4 (10:22→21:53)
[2016-06-21] MEDS: ESCITALOPRAM OXALATE 10 MG TABLET (FP) PO SCH (10:22)
[2016-06-21] MEDS ORDERED: PT OWN MED DRAWER 7, Y5N ONE (16:41)
[2016-06-21] MEDS: hydrOXYzine PAMOATE 25 MG CAPSULE (FP) PO PRN (17:03)
[2016-06-21] MEDS: MAG HYDROX/AL HYDROX/SIMETH 30 ML UNIT-DOSE CUP PO PRN (21:50)
[2016-06-21] MEDS: QUEtiapine FUMARATE 50 MG TABLET PO SCH (21:52)
[2016-06-22] MEDS: metFORMIN HCL 500 MG TABLET (FP) PO SCH ×2 (06:50→17:17)
[2016-06-22] MEDS: INSULIN SLIDING SCALE (NOVOLOG) 1 VIAL SQ SCH ×4 (06:51→21:53)
[2016-06-22] MEDS: MAGNESIUM HYDROX 2400MG/30ML ORAL SUSPENSION 30 ML CUP PO PRN (06:53)
[2016-06-22] MEDS ORDERED: INSULIN (NOVOLOG) ASPART 100 UNITS/ML 10ML VIAL ONE ×4 (06:53→21:54)
[2016-06-22] MEDS ORDERED: PT OWN MED DRAWER 7, Y5N ONE (09:07)
[2016-06-22] MEDS: ESCITALOPRAM OXALATE 10 MG TABLET (FP) PO SCH (10:35)
[2016-06-22] MEDS: HYDROCORTISONE 1% TOPICAL CREAM 30 GM TUBE TP SCH ×4 (10:36→22:15)
[2016-06-22] MEDS: NICOTINE 21 MG/24 HOURS TOPICAL PATCH TD SCH (10:36)
[2016-06-22] MEDS: NICOTINE POLACRILEX 2 MG GUM BUC PRN (10:38)
[2016-06-22] MEDS ORDERED: MAGNESIUM CITRATE 300 ML BOTTLE PO PRN (11:08)
[2016-06-22] MEDS ORDERED: [UNRECOGNIZED DRUG - OTHER] PO SCH (11:15)
[2016-06-22] MEDS: PRENATAL VITAMINS W/ FOLIC ACID TABLET (FP) PO SCH (12:09)
[2016-06-22] MEDS: hydrOXYzine PAMOATE 25 MG CAPSULE (FP) PO PRN (14:26)
[2016-06-22] MEDS: QUEtiapine FUMARATE 50 MG TABLET PO SCH (21:48)
[2016-06-22] MEDS: THIAMINE HCL 100 MG TABLET (FP) PO SCH (21:48)
[2016-06-22] MEDS: MAG HYDROX/AL HYDROX/SIMETH 30 ML UNIT-DOSE CUP PO PRN (21:50)
[2016-06-23] MEDS: diphenhydrAMINE HCL 50 MG CAPSULE PO PRN ×2 (00:31→23:29)
[2016-06-23] MEDS: metFORMIN HCL 500 MG TABLET (FP) PO SCH ×2 (06:17→16:53)
[2016-06-23] MEDS ORDERED: INSULIN (NOVOLOG) ASPART 100 UNITS/ML 10ML VIAL ONE ×4 (07:55→21:44)
[2016-06-23] MEDS: INSULIN SLIDING SCALE (NOVOLOG) 1 VIAL SQ SCH ×4 (07:56→21:36)
[2016-06-23] MEDS: hydrOXYzine PAMOATE 25 MG CAPSULE (FP) PO PRN (07:56)
[2016-06-23] MEDS: NICOTINE 21 MG/24 HOURS TOPICAL PATCH TD SCH (10:33)
[2016-06-23] MEDS: PRENATAL VITAMINS W/ FOLIC ACID TABLET (FP) PO SCH (10:39)
[2016-06-23] MEDS: ESCITALOPRAM OXALATE 10 MG TABLET (FP) PO SCH (10:40)
[2016-06-23] MEDS: HYDROCORTISONE 1% TOPICAL CREAM 30 GM TUBE TP SCH ×4 (10:40→21:44)
[2016-06-23] MEDS ORDERED: PT OWN MED DRAWER 7, Y5N ONE (12:07)
[2016-06-23] MEDS: IBUPROFEN 400 MG TABLET (FP) PO PRN (19:43)
[2016-06-23] MEDS: THIAMINE HCL 100 MG TABLET (FP) PO SCH (21:36)
[2016-06-23] MEDS: QUEtiapine FUMARATE 50 MG TABLET PO SCH (21:36)
[2016-06-24] MEDS: INSULIN SLIDING SCALE (NOVOLOG) 1 VIAL SQ SCH ×4 (06:49→21:53)
[2016-06-24] MEDS ORDERED: INSULIN (NOVOLOG) ASPART 100 UNITS/ML 10ML VIAL ONE ×4 (06:50→21:50)
[2016-06-24] MEDS: metFORMIN HCL 500 MG TABLET (FP) PO SCH ×2 (06:50→16:38)
[2016-06-24] MEDS ORDERED: PT OWN MED DRAWER 7, Y5N ONE ×2 (09:08→21:50)
[2016-06-24] MEDS ORDERED: COLLOIDAL OATMEAL 1 BAR EACH TP PRN (10:04)
[2016-06-24] MEDS: ESCITALOPRAM OXALATE 10 MG TABLET (FP) PO SCH (10:45)
[2016-06-24] MEDS: NICOTINE 21 MG/24 HOURS TOPICAL PATCH TD SCH (10:45)
[2016-06-24] MEDS: PRENATAL VITAMINS W/ FOLIC ACID TABLET (FP) PO SCH (10:45)
[2016-06-24] MEDS: HYDROCORTISONE 1% TOPICAL CREAM 30 GM TUBE TP SCH (10:45)
[2016-06-24] MEDS: hydrOXYzine PAMOATE 25 MG CAPSULE (FP) PO PRN ×2 (10:47→15:29)
[2016-06-24] MEDS: IBUPROFEN 400 MG TABLET (FP) PO PRN (19:28)
[2016-06-24] MEDS: FLUOCINONIDE 0.05% TOP OINT (60 GM TUBE) TP SCH (21:50)
[2016-06-24] MEDS: QUEtiapine FUMARATE 50 MG TABLET PO SCH (21:51)
[2016-06-24] MEDS: ACETAMINOPHEN 325 MG TABLET (FP) PO PRN (21:51)
[2016-06-24] MEDS: THIAMINE HCL 100 MG TABLET (FP) PO SCH (21:51)
[2016-06-24] MEDS ORDERED: HYDROCORTISONE 0.5% TOPICAL CREAM 30 GM TUBE TP SCH (22:00)
[2016-06-24] MEDS: MAG HYDROX/AL HYDROX/SIMETH 30 ML UNIT-DOSE CUP PO PRN (23:09)
[2016-06-25] MEDS: diphenhydrAMINE HCL 50 MG CAPSULE PO PRN ×2 (00:22→21:52)
[2016-06-25] MEDS: metFORMIN HCL 500 MG TABLET (FP) PO SCH ×2 (06:18→17:01)
[2016-06-25] MEDS: INSULIN SLIDING SCALE (NOVOLOG) 1 VIAL SQ SCH ×4 (06:19→21:53)
[2016-06-25] MEDS ORDERED: INSULIN (NOVOLOG) ASPART 100 UNITS/ML 10ML VIAL ONE ×4 (06:49→21:56)
[2016-06-25] MEDS: FLUOCINONIDE 0.05% TOP OINT (60 GM TUBE) TP SCH ×2 (10:43→21:52)
[2016-06-25] MEDS: NICOTINE 21 MG/24 HOURS TOPICAL PATCH TD SCH (10:43)
[2016-06-25] MEDS: PRENATAL VITAMINS W/ FOLIC ACID TABLET (FP) PO SCH (10:44)
[2016-06-25] MEDS: IBUPROFEN 400 MG TABLET (FP) PO PRN ×2 (10:45→21:57)
[2016-06-25] MEDS: NICOTINE POLACRILEX 2 MG GUM BUC PRN (10:47)
[2016-06-25] MEDS: ACETAMINOPHEN 325 MG TABLET (FP) PO PRN ×2 (12:12→17:02)
[2016-06-25] MEDS ORDERED: PT OWN MED DRAWER 7, Y5N ONE (19:57)
[2016-06-25] MEDS: THIAMINE HCL 100 MG TABLET (FP) PO SCH (21:52)
[2016-06-25] MEDS: QUEtiapine FUMARATE 50 MG TABLET PO SCH (21:54)
[2016-06-26] MEDS: ACETAMINOPHEN 325 MG TABLET (FP) PO PRN ×3 (01:49→19:15)
[2016-06-26] MEDS: diphenhydrAMINE HCL 50 MG CAPSULE PO PRN ×2 (01:50→21:46)
[2016-06-26] MEDS: INSULIN SLIDING SCALE (NOVOLOG) 1 VIAL SQ SCH ×4 (06:20→21:53)
[2016-06-26] MEDS: metFORMIN HCL 500 MG TABLET (FP) PO SCH ×2 (06:20→17:02)
[2016-06-26] MEDS ORDERED: INSULIN (NOVOLOG) ASPART 100 UNITS/ML 10ML VIAL ONE ×4 (07:31→21:59)
--- NOTE | 2016-06-26 07:51 | PN ---
S Progress Note Note: ASKED TO SEE CLIENT FOR L ABD WALL ECCHYMOSIS. CLIENT REPORTS SHE WAS INJECTED WITH INSULIN 2 DAYS AGO AND LATER NOTED BRUISING TO AREA AND DISCOLORATION. DENIES ANY PAIN, OR ANY OTHER C/O. L ABD WALL NOTED WITH A FLAT DISCOLORATION OF THE SKIN, RESOLVING ECCHYMOSIS APPROX 3CM X 3 CM Last Vital Signs Temp Pulse Resp BP Pulse Ox 97.7 F 114 H 16 120/76 06/26/16 07:04 06/26/16 07:04 06/26/16 07:04 06/26/16 07:04 RESOLVING ECCHYMOSIS TO L ABD P- CONT TO MONITOR
[2016-06-26] MEDS: NICOTINE 21 MG/24 HOURS TOPICAL PATCH TD SCH (10:35)
[2016-06-26] MEDS: PRENATAL VITAMINS W/ FOLIC ACID TABLET (FP) PO SCH (10:35)
[2016-06-26] MEDS: FLUOCINONIDE 0.05% TOP OINT (60 GM TUBE) TP SCH ×2 (10:35→21:55)
[2016-06-26] MEDS: hydrOXYzine PAMOATE 25 MG CAPSULE (FP) PO PRN (10:38)
[2016-06-26] MEDS ORDERED: PT OWN MED DRAWER 7, Y5N ONE ×3 (13:39→22:01)
[2016-06-26] MEDS: MAG HYDROX/AL HYDROX/SIMETH 30 ML UNIT-DOSE CUP PO PRN (21:47)
[2016-06-26] MEDS: QUEtiapine FUMARATE 50 MG TABLET PO SCH (21:47)
[2016-06-26] MEDS: THIAMINE HCL 100 MG TABLET (FP) PO SCH (21:48)
[2016-06-27] MEDS: diphenhydrAMINE HCL 50 MG CAPSULE PO PRN ×2 (00:14→21:53)
[2016-06-27] MEDS: MAGNESIUM HYDROX 2400MG/30ML ORAL SUSPENSION 30 ML CUP PO PRN (05:55)
[2016-06-27] MEDS: metFORMIN HCL 500 MG TABLET (FP) PO SCH ×2 (06:24→16:58)
[2016-06-27] MEDS: INSULIN SLIDING SCALE (NOVOLOG) 1 VIAL SQ SCH ×4 (08:03→21:46)
[2016-06-27] MEDS ORDERED: INSULIN (NOVOLOG) ASPART 100 UNITS/ML 10ML VIAL ONE ×4 (08:06→21:47)
[2016-06-27] MEDS ORDERED: PT OWN MED DRAWER 7, Y5N ONE ×2 (09:01→20:34)
[2016-06-27] MEDS: FLUOCINONIDE 0.05% TOP OINT (60 GM TUBE) TP SCH ×2 (10:40→21:54)
[2016-06-27] MEDS: PRENATAL VITAMINS W/ FOLIC ACID TABLET (FP) PO SCH (10:40)
[2016-06-27] MEDS: NICOTINE 21 MG/24 HOURS TOPICAL PATCH TD SCH (10:40)
[2016-06-27] MEDS: ACETAMINOPHEN 325 MG TABLET (FP) PO PRN (13:32)
[2016-06-27] MEDS: QUEtiapine FUMARATE 50 MG TABLET PO SCH (21:51)
[2016-06-27] MEDS: THIAMINE HCL 100 MG TABLET (FP) PO SCH (21:51)
[2016-06-28] MEDS: diphenhydrAMINE HCL 50 MG CAPSULE PO PRN ×2 (00:53→21:44)
[2016-06-28] MEDS: metFORMIN HCL 500 MG TABLET (FP) PO SCH ×2 (06:12→17:10)
[2016-06-28] MEDS: MAGNESIUM HYDROX 2400MG/30ML ORAL SUSPENSION 30 ML CUP PO PRN (06:12)
[2016-06-28] MEDS ORDERED: INSULIN (NOVOLOG) ASPART 100 UNITS/ML 10ML VIAL ONE ×4 (07:23→21:43)
[2016-06-28] MEDS: INSULIN SLIDING SCALE (NOVOLOG) 1 VIAL SQ SCH ×4 (07:50→21:42)
[2016-06-28] MEDS: ACETAMINOPHEN 325 MG TABLET (FP) PO PRN ×2 (07:55→21:45)
[2016-06-28] MEDS: NICOTINE 21 MG/24 HOURS TOPICAL PATCH TD SCH (10:24)
[2016-06-28] MEDS: FLUOCINONIDE 0.05% TOP OINT (60 GM TUBE) TP SCH ×2 (10:25→21:47)
[2016-06-28] MEDS: PRENATAL VITAMINS W/ FOLIC ACID TABLET (FP) PO SCH (10:25)
[2016-06-28] MEDS ORDERED: PT OWN MED DRAWER 7, Y5N ONE (20:14)
[2016-06-28] MEDS: IBUPROFEN 400 MG TABLET (FP) PO PRN (20:24)
[2016-06-28] MEDS: THIAMINE HCL 100 MG TABLET (FP) PO SCH (21:44)
[2016-06-28] MEDS: QUEtiapine FUMARATE 50 MG TABLET PO SCH (21:46)
[2016-06-29] MEDS: diphenhydrAMINE HCL 50 MG CAPSULE PO PRN (00:27)
[2016-06-29] MEDS: metFORMIN HCL 500 MG TABLET (FP) PO SCH ×2 (06:08→16:45)
[2016-06-29] MEDS: MAGNESIUM HYDROX 2400MG/30ML ORAL SUSPENSION 30 ML CUP PO PRN (06:09)
[2016-06-29] MEDS: ACETAMINOPHEN 325 MG TABLET (FP) PO PRN (06:09)
[2016-06-29] MEDS ORDERED: INSULIN (NOVOLOG) ASPART 100 UNITS/ML 10ML VIAL ONE ×4 (06:32→21:56)
[2016-06-29] MEDS: INSULIN SLIDING SCALE (NOVOLOG) 1 VIAL SQ SCH ×4 (08:06→21:47)
[2016-06-29] MEDS: FLUOCINONIDE 0.05% TOP OINT (60 GM TUBE) TP SCH ×2 (10:22→21:47)
[2016-06-29] MEDS: NICOTINE 21 MG/24 HOURS TOPICAL PATCH TD SCH (10:23)
[2016-06-29] MEDS: PRENATAL VITAMINS W/ FOLIC ACID TABLET (FP) PO SCH (10:23)
[2016-06-29] MEDS: IBUPROFEN 400 MG TABLET (FP) PO PRN (10:24)
[2016-06-29] MEDS: THIAMINE HCL 100 MG TABLET (FP) PO SCH (21:47)
[2016-06-29] MEDS: QUEtiapine FUMARATE 50 MG TABLET PO SCH (21:47)
[2016-06-29] MEDS ORDERED: PT OWN MED DRAWER 7, Y5N ONE (21:58)
[2016-06-30] MEDS: ACETAMINOPHEN 325 MG TABLET (FP) PO PRN ×2 (03:18→13:27)
[2016-06-30] MEDS: INSULIN SLIDING SCALE (NOVOLOG) 1 VIAL SQ SCH ×4 (06:44→21:55)
[2016-06-30] MEDS: metFORMIN HCL 500 MG TABLET (FP) PO SCH ×2 (06:44→16:58)
[2016-06-30] MEDS ORDERED: INSULIN (NOVOLOG) ASPART 100 UNITS/ML 10ML VIAL ONE ×4 (07:10→21:52)
[2016-06-30] MEDS: FLUOCINONIDE 0.05% TOP OINT (60 GM TUBE) TP SCH ×2 (10:05→21:49)
[2016-06-30] MEDS: NICOTINE 21 MG/24 HOURS TOPICAL PATCH TD SCH (10:05)
[2016-06-30] MEDS: PRENATAL VITAMINS W/ FOLIC ACID TABLET (FP) PO SCH (10:05)
[2016-06-30] MEDS ORDERED: PT OWN MED DRAWER 7, Y5N ONE ×2 (10:09→20:08)
[2016-06-30] MEDS: QUEtiapine FUMARATE 50 MG TABLET PO SCH (21:49)
[2016-06-30] MEDS: diphenhydrAMINE HCL 50 MG CAPSULE PO PRN (21:49)
[2016-06-30] MEDS: THIAMINE HCL 100 MG TABLET (FP) PO SCH (21:49)
[2016-07-01] MEDS: INSULIN SLIDING SCALE (NOVOLOG) 1 VIAL SQ SCH (06:56)
[2016-07-01] MEDS: metFORMIN HCL 500 MG TABLET (FP) PO SCH (06:56)
[2016-07-01] MEDS: ACETAMINOPHEN 325 MG TABLET (FP) PO PRN (07:05)
[2016-07-01] MEDS ORDERED: INSULIN (NOVOLOG) ASPART 100 UNITS/ML 10ML VIAL ONE (07:07)
[2016-07-01 07:34] VITALS: BP 126/82; PULSE 96; TEMP 98
[2016-07-01] MEDS: PRENATAL VITAMINS W/ FOLIC ACID TABLET (FP) PO SCH (09:11)
[2016-07-01] MEDS: NICOTINE POLACRILEX 2 MG GUM BUC PRN (09:12)
[2016-07-01] MEDS: FLUOCINONIDE 0.05% TOP OINT (60 GM TUBE) TP SCH (09:14)
[2016-07-01] MEDS: NICOTINE 21 MG/24 HOURS TOPICAL PATCH TD SCH (09:15)
--- NOTE | 2016-07-01 09:31 | PN ---
Psychiatric Progress Note Vital Signs: Vital Signs Period Temp Pulse Resp BP Sys/Mcdermott Pulse Ox Last 24 Hr 98.0 F 96 16-18 126/82 Date of Session: 07/01/16 Chief Complaint:: Discharge visit HPI: Patient addressed Cocaine and Alcohol dependence comorbid with Substance induced mood disorder. ROS: Vaginitis due to Stephany. Current Medications: Active Medications Generic Name Dose Route Start Last Admin Trade Name Freq PRN Reason Stop Dose Admin Acetaminophen 650 mg 06/17/16 15:14 07/01/16 07:05 Tylenol - PO 650 mg Q4H PRN Administration FEVER OR PAIN Al Hydroxide/Mg Hydroxide 30 ml 06/17/16 15:14 06/26/16 21:47 Mylanta Oral Suspension - PO 30 ml Q6H PRN Administration DYSPEPSIA Albuterol Sulfate 2 puff 06/17/16 15:15 Ventolin Hfa Inhaler - IH Q4H PRN SHORTNESS OF BREATH Colloidal Oatmeal 1 applic 06/24/16 10:04 06/24/16 10:47 Aveeno Soap - TP 1 bar DAILY PRN Administration HYGEINE Diphenhydramine HCl 50 mg 06/17/16 15:14 06/30/16 21:49 Benadryl - PO 50 mg HSMR1 PRN Administration FOR ITCHING Eucalyptus/Menthol/Phenol/Sorbitol 1 each 06/17/16 15:14 06/26/16 10:37 Cepastat Lozenge - MM 1 each Q4H PRN Administration SORE THROAT Fluocinonide 1 applic 06/24/16 22:00 07/01/16 09:14 Lidex 0.05% Ointment - TP Not Given BID BETO Guaifenesin 10 ml 06/17/16 15:14 Robitussin Dm - PO Q6H PRN COUGH Hydroxyzine Pamoate 25 mg 06/19/16 11:25 06/26/16 10:38 Vistaril - PO 25 mg Q4H PRN Administration ANXIETY Ibuprofen 400 mg 06/17/16 15:14 06/29/16 10:24 Motrin - PO 400 mg Q6H PRN Administration PAIN Insulin Aspart 0 vial 06/19/16 16:30 07/01/16 06:56 Novolog Vial Sliding Scale - SQ 4 units ACHS BETO Administration Protocol Loperamide HCl 4 mg 06/17/16 15:14 Imodium - PO Q6H PRN DIARRHEA Magnesium Hydroxide 30 ml 06/17/16 15:14 06/29/16 06:09 Milk Of Magnesia - PO 30 ml DAILY PRN Administration CONSTIPATION Metformin HCl 500 mg 06/17/16 16:30 07/01/16 06:56 Glucophage - PO 500 mg BIDAC BETO Administration Nicotine 21 mg 06/18/16 10:00 07/01/16 09:15 Nicoderm Patch - TD Not Given DAILY BETO Nicotine Polacrilex 2 mg 06/17/16 15:14 07/01/16 09:12 Nicorette Gum - BUC 2 mg Q2H PRN Administration NICOTINE REPLACEMENT RX Multivit/Folic Acid/Iron 1 tab 06/22/16 12:00 07/01/16 09:11 Vitamins (Sjr) - PO 1 tab DAILY BETO Administration Pseudoephedrine/Triprolidine 1 combo 06/17/16 15:14 Actifed - PO TID PRN NASAL CONGESTION Quetiapine Fumarate 50 mg 06/18/16 22:00 06/30/16 21:49 Seroquel - PO Not Given HS BETO Thiamine HCl 100 mg 06/22/16 22:00 06/30/16 21:49 Vitamin B1 - PO Not Given HS BETO Current Side Effect: No Lab tests ordered: No Lab tests reviewed: Yes Provider note:: PAtient completed this program today.She has met her treatmemt goals and will continue to address her issues on outpatient basis at [facility] in the [place].Patient continueas to find that Seroquel 50 mg po hs helps to reduce her anxiety and mood instability.Scripts for 30 days proveded. Therapy provided including discussion of support and coping skills utilization to maintain recovery. Patient is srable for dischargw today. Total face to face time:: 30 Mental Status Exam - Mental Status Exam Alert and Oriented to: Time, Place, Person Cognitive Function: Grossly Intact Patient Appearance: Well Groomed Mood: Hopeful, Euthymic Affect: Appropriate Patient Behavior: Cooperative Speech Pattern: Clear Voice Loudness: Normal Thought Process: Goal Oriented Thought Disorder: Not Present Hallucinations: Denies Suicidal Ideation: Denies Homicidal Ideation: Denies Insight/Judgement: Fair Sleep: Fair Appetite: Good Muscle strength/Tone: Normal Gait/Station: Normal Psychiatric Treatment Plan - Problem List (1) Substance-induced sleep disorder Current Visit: Yes (2) Vaginitis due to Stephany Current Visit: Yes Comment: clotrimazole vaginal (3) Alcohol dependence with uncomplicated withdrawal Current Visit: Yes (4) Cocaine abuse without complication Current Visit: Yes (5) Psychoactive substance-induced mood disorder Current Visit: Yes
== END 2016-07-01 09:34 | disposition home or self-care (01) | DRG 772 ==
LOC: YASAS 12:29 → Y3E 12:30
PROVIDERS: ADMIT Psychiatry & Neurology Psychiatry; ATTEND Psychiatry & Neurology Psychiatry
PROC: HZ42ZZZ Group Counseling for Substance Abuse Treatment, Cognitive-Behavioral (ICD-10-PCS; principal; 2016-06-17)
DX: F10.20 Alcohol dependence, uncomplicated (principal); F14.20 Cocaine dependence, uncomplicated; F19.24 Other psychoactive substance dependence with psychoactive substance-induced mood disorder; F19.282 Other psychoactive substance dependence with psychoactive substance-induced sleep disorder; B37.3 Candidiasis of vulva and vagina; E11.9 Type 2 diabetes mellitus without complications; Z79.4 Long term (current) use of insulin
CPT/HCPCS: 36415; 87389

== ENCOUNTER 2016-10-28 08:40 | Inpatient (IN) | payer OTHER ==
[2016-10-28 10:20] VITALS: BMI 25.4
--- NOTE | 2016-10-28 14:21 | HP ---
CIWA Score - CIWA Score Nausea/Vomitin (N/V/D) Muscle Tremors: 4-Moderate,w/Arms Extend Anxiety: 4-Mod. Anxious/Guarded Agitation: 3 Paroxysmal Sweats: 1-Minimal Palms Moist Orientation: 0-Oriented Tacttile Disturbances: 3-Moderate Itch/Numb/Burn Auditory Disturbances: 0-None Visual Disturbances: 0-None Headache: 0-None Present CIWA-Ar Total Score: 20 Admission ROS BHS - HPI Chief Complaint: DETOX [place] FOR ALCOHOL DEPENDENCE Allergies/Adverse Reactions: Allergies Allergy/AdvReac Type Severity Reaction Status Date / Time Fish Containing Products Allergy Intermediate Hives Verified 10/29/16 16:05 mustard Allergy Intermediate Hives Verified 10/28/16 11:09 shellfish derived Allergy Intermediate Hives Verified 10/29/16 16:05 No Known Drug Allergies Allergy Verified 10/28/16 14:25 seafood Allergy Intermediate Hives Uncoded 10/28/16 14:25 History of Present Illness: 46 Y/O H/F WITH A HX OF ALCOHOL AND MARIJUANA DEPENDENCE SEEKING DETOX TX. Exam Limitations: No Limitations - Ebola screening Have you traveled outside of the country in the last 21 days: No Have you had contact with anyone from an Ebola affected area: No Have you been sick,other than usual withdrawal symptoms: No Do you have a fever: No - Review of Systems Constitutional: Chills, Loss of Appetite, Night Sweats, Changes in sleep (LOST UNCLE 2 WEEKS AGO.), Unintentional Wgt. Loss EENT: reports: Blurred Vision (RIGHT > LEFT. WEARS GLASSES .), Tearing, Nose Congestion, Dental Problems (MISSING TEETH) Respiratory: reports: Shortness of Breath (HX ASTHMA), Wheezing Cardiac: reports: Lightheadedness GI: reports: Diarrhea, Nausea, Poor Appetite, Poor Fluid Intake, Vomiting : reports: No Symptoms Reported Musculoskeletal: reports: Back Pain, Joint Pain, Muscle Pain, Other (SPRAINED RIGHT ANKLE ONE WEEK AGO. DID NOT GO TO THE DOCTOR.) Integumentary: reports: No Symptoms Reported Neuro: reports: Headache, Tremors, Unsteady Gait Endocrine: reports: No Symptoms Reported Hematology: reports: No Symptoms Reported Psychiatric: reports: Orientated x3, Anxious, Depressed Other Systems: Reviewed and Negative Patient History - Patient Medical History Hx Anemia: No Hx Asthma: Yes (MDI) Hx Chronic Obstructive Pulmonary Disease (COPD): No Hx Cancer: No Hx Cardiac Disorders: No Hx Congestive Heart Failure: No Hx Hypertension: No Hx Hypercholesterolemia: No Hx Pacemaker: No HX Cerebrovascular Accident: No Hx Seizures: No Hx Dementia: No Hx Diabetes: Yes (BGM-365;) Hx Gastrointestinal Disorders: No Hx Liver Disease: No Hx Genitourinary Disorders: No Hx Sexually Transmitted Disorders: No Hx Renal Disease (ESRD): No Hx Thyroid Disease: No Hx Human Immunodeficiency Virus (HIV): No (NEGATIVE HX) Hx Hepatitis C: No Hx Depression: Yes Hx Suicide Attempt: No (DENIES) Hx Bipolar Disorder: No Hx Schizophrenia: No - Patient Surgical History Past Surgical History: Yes Hx Neurologic Surgery: No Hx Cataract Extraction: No Hx Cardiac Surgery: No Hx Lung Surgery: No Hx Breast Surgery: No Hx Breast Biopsy: No Hx Abdominal Surgery: No Hx Appendectomy: No Hx Cholecystectomy: No Hx Genitourinary Surgery: No Hx Section: Yes (X3) Hx Orthopedic Surgery: No Hx Hysterectomy: No Anesthesia Reaction: No - PPD History Previous Implant?: Yes Documented Results: Negative w/proof Implanted On Prior [facility] Admission?: Yes Date: 11/02/15 Results: 0mm PPD to be Administered?: Yes - Reproductive History Patient is a Female of Child Bearing Age (11 -55 yrs old): Yes Last Menstrual Period: 10/28/16 Patient : No - Smoking Cessation Smoking history: Current every day smoker Have you smoked in the past 12 months: Yes Aproximately how many cigarettes per day: 20 If you are a former smoker, when did you quit?: 03/2016 Cigars Per Day: 0 Hx Chewing Tobacco Use: No Initiated information on smoking cessation: Yes 'Breaking Loose' booklet given: 10/28/16 - Substance & Tx. History Hx Alcohol Use: Yes Hx Substance Use: Yes (COCAINE/MARIJUANA) Substance Use Type: Alcohol, Cocaine, Marijuana Hx Substance Use Treatment: Yes (LAST [place] AT [facility] ) - Substances Abused Alcohol Route: Oral Frequency: Daily Amount used: rum(1 pint)/vodka(1 pint) Age of first use: 15 Date of Last Use: 10/27/16 Marijuana/Hashish Route: Oral Frequency: 1-2 times per week Amount used: $5 Age of first use: 15 Date of Last Use: 10/27/16 Cocaine Route: Inhalation Frequency: 1-3 times last 30 days Amount used: $20 Age of first use: 19 Date of Last Use: 10/25/16 Family Disease History - Family Disease History Family Disease History: Diabetes: Father (HTN,HYPERCHOLESTEROLEMIA), Mother (HTN ,HYPERCHOLESTEROLEMIA), Heart Disease: Father, Mother Admission Physical Exam [facility] - Vital Signs Vital Signs: Vital Signs - 24 hr 10/28/16 10:17 Temperature 97.9 F Pulse Rate 92 H Respiratory 18 Rate Blood Pressure 149/78 - Physical General Appearance: Yes: Moderate Distress, Irritable, Anxious HEENTM: Yes: EOMI, Normocephalic, CHAPARRO, Pharynx Normal Respiratory: Yes: Chest Non-Tender, Lungs Clear, Normal Breath Sounds, No Respiratory Distress Neck: Yes: No masses,lesions,Nodules, Supple, Trachea in good position Breast: Yes: Breast Exam Deferred Cardiology: Yes: Regular Rhythm, Regular Rate, S1, S2 Abdominal: Yes: Normal Bowel Sounds, Non Tender, Soft, Protuberent Genitourinary: Yes: Other (N/C) Back: Yes: Within Normal Limits Musculoskeletal: Yes: full range of Motion, Gait Steady, Joint swelling (RIGHT ANKLE) Extremities: Yes: Normal Range of Motion, Non-Tender Neurological: Yes: medicaid plan compliance director II-XII NML intact, Fully Oriented, Alert, Motor Strength 5/5 Integumentary: Yes: Dry, Warm Lymphatic: Yes: Within Normal Limits - Diagnostic (1) Alcohol dependence with uncomplicated withdrawal Status: Acute (2) Cocaine dependence Status: Acute Qualifiers: Substance use status: uncomplicated Qualified Code(s): F14.20 - Cocaine dependence, uncomplicated (3) Marijuana dependence Status: Acute (4) Nicotine dependence Status: Acute Qualifiers: Nicotine product type: cigarettes Substance use status: in withdrawal Qualified Code(s): F17.213 - Nicotine dependence, cigarettes, with withdrawal (5) Type II diabetes mellitus Status: Chronic Qualifiers: Diabetes mellitus complication status: without complication Diabetes mellitus tank terminal gauger insulin use: with halfway use Qualified Code(s): E11.9 - Type 2 diabetes mellitus without complications (6) History of asthma Status: Chronic Cleared for Admission [facility] - Detox or Rehab [facility] Level of Care: Medically Managed Detox Regimen/Protocol: Librium [facility] Breath Alcohol Content Breath Alcohol Content: 0 Urine Pregancy Test - Result Urine Test Results: Negative- NO Line Present Urine Drug Screen - Results Drug Screen Negative: No Urine Drug Screen Results: THC-Marijuana, ANNITA-Cocaine
[2016-10-28] MEDS ORDERED: ACETAMINOPHEN 325 MG TABLET (FP) PO PRN (14:35)
[2016-10-28] MEDS ORDERED: LOPERAMIDE HCL 2 MG CAPSULE PO PRN (14:35)
[2016-10-28] MEDS ORDERED: MAGNESIUM CITRATE 300 ML BOTTLE PO PRN (14:35)
[2016-10-28] MEDS ORDERED: P-EPHED 60MG/TRIPROLIDI 2.5MG TABLET PO PRN (14:35)
[2016-10-28] MEDS ORDERED: MAG HYDROX/AL HYDROX/SIMETH 30 ML UNIT-DOSE CUP PO PRN (14:35)
[2016-10-28] MEDS ORDERED: MENTHOL/PHENOL 1 EACH UD MM PRN (14:35)
[2016-10-28] MEDS ORDERED: guaiFENesin/D-METHORPHAN HB 10 ML UNIT-DOSE CUPS PO PRN (14:35)
[2016-10-28] MEDS ORDERED: ALBUTEROL SO4 6.7 GM HFA INHALER IH PRN (14:39)
[2016-10-28] MEDS ORDERED: chlordiazePOXIDE HCL 25 MG CAPSULE PO ONE (14:45)
[2016-10-28] MEDS: NICOTINE 21 MG/24 HOURS TOPICAL PATCH TD SCH (15:50)
[2016-10-28] MEDS ORDERED: INSULIN (NOVOLOG) ASPART 100 UNITS/ML 10ML VIAL ONE (17:05)
[2016-10-28 17:23] LABS: MCH 32.1 pg (25.7-33.7); MCHC 32.8 g/dl (32.0-36.0); MEAN CELL VOLUME 97.6 fl (80-96); MEAN PLT VOLUME 9.8 fl (7.5-11.1); PLATELET COUNT 286 K/MM3 (134-434); WHITE BLOOD COUNT 8.2 K/mm3 (4.0-10.0)
[2016-10-28] MEDS: chlordiazePOXIDE HCL 25 MG CAPSULE PO SCH ×2 (17:29→22:43)
[2016-10-28] MEDS: INSULIN SLIDING SCALE (NOVOLOG) 1 VIAL SQ SCH (17:31)
[2016-10-28 17:39] LABS: URINE APPEARANCE CLEAR; URINE BILIRUBIN NEGATIVE (NEGATIVE); URINE BLOOD 1+ (NEGATIVE); URINE COLOR STRAW; URINE GLUCOSE (UA) 3+ (NEGATIVE); URINE KETONE 1+ (NEGATIVE); URINE LEUK ESTERASE NEGATIVE (NEGATIVE); URINE NITRITE NEGATIVE (NEGATIVE); URINE PROTEIN NEGATIVE (NEGATIVE); URINE UROBILINOGEN NEGATIVE mg/dL (0.2-1.0)
[2016-10-28 17:51] LABS: ALBUMIN 4.2 g/dl (3.4-5.0); ANION GAP 10 (8-16); CALCIUM 9.4 mg/dL (8.5-10.1); CO2 26 mmol/L (21-32); GLUCOSE,RANDOM 279 mg/dL (74-106)
[2016-10-28 17:55] LABS: ALK PHOS 101 U/L (45-117); BILIRUBIN,TOTAL 0.7 mg/dL (0.2-1.0); CREATININE 0.8 mg/dL (0.55-1.02); SGOT/AST 26 U/L (15-37); SGPT/ALT 23 U/L (12-78); TOT PROT 7.6 g/dl (6.4-8.2)
[2016-10-28 17:55] LABS: URINE RBC 1 /hpf (0-3); URINE WBC <1 /hpf (3-5)
[2016-10-28] MEDS: IBUPROFEN 400 MG TABLET (FP) PO PRN (20:40)
[2016-10-28] MEDS: THIAMINE HCL 100 MG TABLET (FP) PO SCH (22:43)
[2016-10-28] MEDS: INSULIN DETEMIR 100 UNITS/ML MDV SQ SCH (22:44)
[2016-10-28] MEDS: diphenhydrAMINE HCL 50 MG CAPSULE PO PRN (22:45)
[2016-10-29] MEDS: chlordiazePOXIDE HCL 25 MG CAPSULE PO SCH ×4 (05:47→22:44)
[2016-10-29] MEDS ORDERED: INSULIN (NOVOLOG) ASPART 100 UNITS/ML 10ML VIAL ONE ×2 (07:44→17:11)
[2016-10-29] MEDS: INSULIN SLIDING SCALE (NOVOLOG) 1 VIAL SQ SCH ×2 (07:48→17:46)
[2016-10-29] MEDS: metFORMIN HCL 500 MG TABLET (FP) PO SCH ×3 (07:49→17:46)
--- NOTE | 2016-10-29 08:32 | CONSULT ---
[facility] Psychiatric Consult - Data Date of interview: 10/29/16 Admission source: [facility] Identifying data: This is 46 years old female with no psychiatric hospitalization history intoxicated with: \Alcohol, Cocaine, Cannabis and Nicotine Substance Abuse History: - Smoking Cessation. Smoking history: Current every day smoker. Have you smoked in the past 12 months: Yes. Aproximately how many cigarettes per day: 20. If you are a former smoker, when did you quit?: 2015. Cigars Per Day: 0. Hx Chewing Tobacco Use: No. Initiated information on smoking cessation: Yes. 'Breaking Loose' booklet given: 10/28/16. - Substance & Tx. History. Hx Alcohol Use: Yes. Hx Substance Use: Yes (COCAINE/ MARIJUANA). Substance Use Type: Alcohol, Cocaine, Marijuana. Hx Substance Use Treatment: Yes (LAST TX AT [facility] ). - Substances Abused. Alcohol. Route: Oral. Frequency: Daily. Amount used: rum(1 pint)/vodka(1 pint). Age of first use: 15. Date of Last Use: 10/27/16. Marijuana/Hashish. Route: Oral. Frequency: 1-2 times per week. Amount used: $5. Age of first use: 15. Date of Last Use: 10/27/16. Cocaine. Route: Inhalation. Frequency: 1-3 times last 30 days. Amount used: $20. Age of first use: 19. Date of Last Use : 10/25/16 Medical History: history, Asthma, DM-2, Syncope Psychiatric History: Patient reports history of depression and anxiety, reports no history of psychiatric admissions, reports taking prior to admission: Seroquel 100gm poqhs. Lexapro 10mg poqd. Refusing to restart Lexapro Physical/Sexual Abuse/Trauma History: Denies Additional Comment: Seroquel 100gm poqhs. Lexapro 10mg poqd. Refusing to restart Lexapro Mental Status Exam - Mental Status Exam Alert and Oriented to: Person Cognitive Function: Fair Patient Appearance: Unkempt Mood: Apprehensive Affect: Mood Congruent Patient Behavior: Cooperative Speech Pattern: Appropriate Voice Loudness: Normal Thought Process: Goal Oriented Thought Disorder: Being Controlled Hallucinations: Denies Suicidal Ideation: Denies Homicidal Ideation: Denies Insight/Judgement: Fair Sleep: Difficulty falling asleep Appetite: Weight gain Muscle strength/Tone: Normal Gait/Station: Normal Additional Comments: Seroquel 100gm poqhs. Lexapro 10mg poqd. Refusing to restart Lexapro Psychiatric Findings - Problem List ([place] 1, 2,3) (1) Alcohol dependence with uncomplicated withdrawal Current Visit: Yes Status: Acute (2) Cocaine dependence Current Visit: Yes Status: Acute Qualifiers: Substance use status: uncomplicated Qualified Code(s): F14.20 - Cocaine dependence, uncomplicated (3) Marijuana dependence Current Visit: Yes Status: Acute (4) Nicotine dependence Current Visit: Yes Status: Acute Qualifiers: Nicotine product type: cigarettes Substance use status: in withdrawal Qualified Code(s): F17.213 - Nicotine dependence, cigarettes, with withdrawal (5) Mood disorder Current Visit: No Status: Acute (6) Cocaine abuse without complication Current Visit: No Status: Chronic (7) Psychoactive substance-induced mood disorder Current Visit: No Status: Chronic (8) Substance-induced sleep disorder Current Visit: No Status: Chronic (9) Substance induced mood disorder Current Visit: No Status: Suspected - Initial Treatment Plan Initial Treatment Plan: Seroquel 100gm poqhs. Lexapro 10mg poqd. Refusing to restart Lexapro
[2016-10-29] MEDS: PRENATAL VITAMINS W/ FOLIC ACID TABLET (FP) PO SCH (11:28)
[2016-10-29] MEDS: NICOTINE POLACRILEX 4 MG GUM BUC PRN (11:29)
[2016-10-29] MEDS: NICOTINE 21 MG/24 HOURS TOPICAL PATCH TD SCH (11:29)
[2016-10-29] MEDS: MAGNESIUM HYDROX 2400MG/30ML ORAL SUSPENSION 30 ML CUP PO PRN (11:38)
--- NOTE | 2016-10-29 12:44 | PN ---
S CIWA - CIWA Score Nausea/Vomitin Muscle Tremors: 3 Anxiety: 3 Agitation: 2 Paroxysmal Sweats: 1-Minimal Palms Moist Orientation: 0-Oriented Tacttile Disturbances: 1-Very Mild Itch/Numbness Auditory Disturbances: 1-Very Mild Visual Disturbances: 1-Very Mild Sensitivity Headache: 2-Mild CIWA-Ar Total Score: 17 S Progress Note (SOAP) Subjective: ALERT,IRRITABLE,ANXIOUS,INTERRUPTED SLEEP,TREMOR,PAIN IN THE BODY Objective: 10/29/16 12:42 Vital Signs Temperature 96.1 F L 10/29/16 10:17 Pulse Rate 93 H 10/29/16 10:17 Respiratory Rate 20 10/29/16 10:17 Blood Pressure 132/84 10/29/16 10:17 O2 Sat by Pulse Oximetry (%) EKG NSR,NORMAL ECG Laboratory Last Values WBC 8.2 K/mm3 (4.0-10.0) 10/28/16 14:00 RBC 4.46 M/mm3 (3.60-5.2) 10/28/16 14:00 Hgb 14.3 GM/dL (10.7-15.3) D 10/28/16 14:00 Hct 43.5 % (32.4-45.2) D 10/28/16 14:00 MCV 97.6 fl (80-96) H 10/28/16 14:00 MCH 32.1 pg (25.7-33.7) 10/28/16 14:00 MCHC 32.8 g/dl (32.0-36.0) 10/28/16 14:00 RDW 14.0 % (11.6-15.6) 10/28/16 14:00 Plt Count 286 K/MM3 (134-434) D 10/28/16 14:00 MPV 9.8 fl (7.5-11.1) 10/28/16 14:00 Sodium 135 mmol/L (136-145) L 10/28/16 14:00 Potassium 4.1 mmol/L (3.5-5.1) 10/28/16 14:00 Chloride 99 mmol/L (98-107) 10/28/16 14:00 Carbon Dioxide 26 mmol/L (21-32) 10/28/16 14:00 Anion Gap 10 (8-16) 10/28/16 14:00 BUN 11 mg/dL (7-18) D 10/28/16 14:00 Creatinine 0.8 mg/dL (0.55-1.02) 10/28/16 14:00 Creat Clearance w eGFR > 60 (>60) 10/28/16 14:00 POC Glucometer 227 UNITS (()) 10/29/16 05:49 Random Glucose 279 mg/dL (74-106) H 10/28/16 14:00 Calcium 9.4 mg/dL (8.5-10.1) 10/28/16 14:00 Total Bilirubin 0.7 mg/dL (0.2-1.0) D 10/28/16 14:00 AST 26 U/L (15-37) D 10/28/16 14:00 ALT 23 U/L (12-78) D 10/28/16 14:00 Alkaline Phosphatase 101 U/L (45-117) 10/28/16 14:00 Total Protein 7.6 g/dl (6.4-8.2) D 10/28/16 14:00 Albumin 4.2 g/dl (3.4-5.0) D 10/28/16 14:00 Urine Color Straw 10/28/16 15:50 Urine Appearance Clear 10/28/16 15:50 Urine pH 5.0 (5.0-8.0) 10/28/16 15:50 Ur Specific [place] 1.015 (1.005-1.025) 10/28/16 15:50 Urine Protein Negative (NEGATIVE) 10/28/16 15:50 Urine Glucose (UA) 3+ (NEGATIVE) H 10/28/16 15:50 Urine Ketones 1+ (NEGATIVE) H 10/28/16 15:50 Urine Blood 1+ (NEGATIVE) H 10/28/16 15:50 Urine Nitrite Negative (NEGATIVE) 10/28/16 15:50 Urine Bilirubin Negative (NEGATIVE) 10/28/16 15:50 Urine Urobilinogen Negative mg/dL (0.2-1.0) 10/28/16 15:50 Ur Leukocyte Esterase Negative (NEGATIVE) 10/28/16 15:50 Urine RBC 1 /hpf (0-3) 10/28/16 15:50 Urine WBC <1 /hpf (3-5) 10/28/16 15:50 Ur Epithelial Cells Rare /hpf (FEW) 10/28/16 15:50 RPR Titer Nonreactive (NONREACTIVE) 10/28/16 14:00 Assessment: 10/29/16 12:43 WITHDRAWAL SYMPTOM Plan: CONTINUE DETOX,BGM MONITORING
[2016-10-29] MEDS: IBUPROFEN 400 MG TABLET (FP) PO PRN (14:25)
--- NOTE | 2016-10-29 16:39 | EKG ---
Test Reason : Blood Pressure : / mmHG Vent. Rate : 087 BPM Atrial Rate : 087 BPM P-R Int : 118 ms QRS Dur : 082 ms QT Int : 372 ms P-R-T Axes : 058 062 044 degrees QTc Int : 447 ms NORMAL SINUS RHYTHM NORMAL ECG WHEN COMPARED WITH ECG OF 13-JUN-2016 18:20, NO SIGNIFICANT CHANGE WAS FOUND Confirmed by ABBIE PEÑA MD ([id number]) on 10/29/2016 4:39:35 PM Referred By: Confirmed By:ABBIE PEÑA MD
[2016-10-29] MEDS: INSULIN DETEMIR 100 UNITS/ML MDV SQ SCH (22:44)
[2016-10-29] MEDS: QUEtiapine FUMARATE 100 MG TABLET (FP) PO SCH (22:45)
[2016-10-29] MEDS: THIAMINE HCL 100 MG TABLET (FP) PO SCH (22:45)
[2016-10-30] MEDS: diphenhydrAMINE HCL 50 MG CAPSULE PO PRN ×2 (01:58→22:42)
[2016-10-30] MEDS: IBUPROFEN 400 MG TABLET (FP) PO PRN ×2 (01:59→17:08)
[2016-10-30] MEDS: chlordiazePOXIDE HCL 25 MG CAPSULE PO SCH ×2 (06:22→15:12)
[2016-10-30] MEDS: MAGNESIUM HYDROX 2400MG/30ML ORAL SUSPENSION 30 ML CUP PO PRN (06:46)
[2016-10-30] MEDS: INSULIN SLIDING SCALE (NOVOLOG) 1 VIAL SQ SCH ×2 (07:29→17:14)
[2016-10-30] MEDS: metFORMIN HCL 500 MG TABLET (FP) PO SCH ×2 (07:29→17:13)
--- NOTE | 2016-10-30 12:15 | PN ---
[facility] CIWA - CIWA Score Nausea/Vomitin Muscle Tremors: 3 Anxiety: 3 Agitation: 2 Paroxysmal Sweats: 3 Orientation: 0-Oriented Tacttile Disturbances: 2-Mild Itch/Numbness/Burn Auditory Disturbances: 0-None Visual Disturbances: 0-None Headache: 0-None Present CIWA-Ar Total Score: 16 [facility] Progress Note (SOAP) Subjective: interrupted sleep,abdominal cramps , itch with thiamine Objective: 10/30/16 12:12 Vital Signs Temperature 96.1 F L 10/30/16 10:00 Pulse Rate 87 10/30/16 10:00 Respiratory Rate 16 10/30/16 10:00 Blood Pressure 141/81 10/30/16 10:00 O2 Sat by Pulse Oximetry (%) Laboratory Tests 10/28/16 10/28/16 10/28/16 11:24 14:00 14:00 WBC 8.2 RBC 4.46 Hgb 14.3 D Hct 43.5 D MCV 97.6 H MCH 32.1 MCHC 32.8 RDW 14.0 Plt Count 286 D MPV 9.8 Sodium 135 L Potassium 4.1 Chloride 99 Carbon Dioxide 26 Anion Gap 10 BUN 11 D Creatinine 0.8 Creat Clearance w eGFR > 60 POC Glucometer 365 Random Glucose 279 H Calcium 9.4 Total Bilirubin 0.7 D AST 26 D ALT 23 D Alkaline Phosphatase 101 Total Protein 7.6 D Albumin 4.2 D Urine Color Urine Appearance Urine pH Ur Specific [place] Urine Protein Urine Glucose (UA) Urine Ketones Urine Blood Urine Nitrite Urine Bilirubin Urine Urobilinogen Ur Leukocyte Esterase Urine RBC Urine WBC Ur Epithelial Cells RPR Titer 10/28/16 10/28/16 10/28/16 14:00 15:50 16:42 WBC RBC Hgb Hct MCV MCH MCHC RDW Plt Count MPV Sodium Potassium Chloride Carbon Dioxide Anion Gap BUN Creatinine Creat Clearance w eGFR POC Glucometer 359 Random Glucose Calcium Total Bilirubin AST ALT Alkaline Phosphatase Total Protein Albumin Urine Color Straw Urine Appearance Clear Urine pH 5.0 Ur Specific [place] 1.015 Urine Protein Negative Urine Glucose (UA) 3+ H Urine Ketones 1+ H Urine Blood 1+ H Urine Nitrite Negative Urine Bilirubin Negative Urine Urobilinogen Negative Ur Leukocyte Esterase Negative Urine RBC 1 Urine WBC <1 Ur Epithelial Cells Rare RPR Titer Nonreactive 10/28/16 10/29/16 10/29/16 22:04 05:49 16:37 WBC RBC Hgb Hct MCV MCH MCHC RDW Plt Count MPV Sodium Potassium Chloride Carbon Dioxide Anion Gap BUN Creatinine Creat Clearance w eGFR POC Glucometer 383 227 297 Random Glucose Calcium Total Bilirubin AST ALT Alkaline Phosphatase Total Protein Albumin Urine Color Urine Appearance Urine pH Ur Specific [place] Urine Protein Urine Glucose (UA) Urine Ketones Urine Blood Urine Nitrite Urine Bilirubin Urine Urobilinogen Ur Leukocyte Esterase Urine RBC Urine WBC Ur Epithelial Cells RPR Titer 10/29/16 10/30/16 21:55 06:21 WBC RBC Hgb Hct MCV MCH MCHC RDW Plt Count MPV Sodium Potassium Chloride Carbon Dioxide Anion Gap BUN Creatinine Creat Clearance w eGFR POC Glucometer 244 200 Random Glucose Calcium Total Bilirubin AST ALT Alkaline Phosphatase Total Protein Albumin Urine Color Urine Appearance Urine pH Ur Specific [place] Urine Protein Urine Glucose (UA) Urine Ketones Urine Blood Urine Nitrite Urine Bilirubin Urine Urobilinogen Ur Leukocyte Esterase Urine RBC Urine WBC Ur Epithelial Cells RPR Titer pt aox3 in nad ambulating 10/30/16 12:14 Assessment: 10/30/16 12:12 withdrawal sx's dm allergy to bi -thiamine causes itch Plan: cont. detox increase fluids d/c thiamine insulin coverage sliding scale
[2016-10-30] MEDS: NICOTINE 21 MG/24 HOURS TOPICAL PATCH TD SCH (15:11)
[2016-10-30] MEDS: PRENATAL VITAMINS W/ FOLIC ACID TABLET (FP) PO SCH (15:11)
[2016-10-30] MEDS ORDERED: INSULIN (NOVOLOG) ASPART 100 UNITS/ML 10ML VIAL ONE (17:01)
[2016-10-30] MEDS: chlordiazePOXIDE 5 MG CAPSULE PO SCH ×2 (17:07→22:42)
[2016-10-30] MEDS: QUEtiapine FUMARATE 100 MG TABLET (FP) PO SCH (22:41)
[2016-10-30] MEDS: INSULIN DETEMIR 100 UNITS/ML MDV SQ SCH (22:42)
[2016-10-31] MEDS ORDERED: diphenhydrAMINE HCL 25 MG CAPSULE (FP) PO ONE (01:54)
[2016-10-31] MEDS: chlordiazePOXIDE HCL 25 MG CAPSULE PO PRN ×2 (01:56→14:12)
[2016-10-31] MEDS: diphenhydrAMINE HCL 50 MG CAPSULE PO PRN ×2 (01:57→22:47)
[2016-10-31] MEDS: INSULIN SLIDING SCALE (NOVOLOG) 1 VIAL SQ SCH ×2 (06:06→22:48)
[2016-10-31] MEDS: chlordiazePOXIDE 5 MG CAPSULE PO SCH ×2 (06:06→11:02)
[2016-10-31] MEDS: metFORMIN HCL 500 MG TABLET (FP) PO SCH ×2 (07:30→17:28)
[2016-10-31] MEDS: NICOTINE 21 MG/24 HOURS TOPICAL PATCH TD SCH (11:02)
[2016-10-31] MEDS: PRENATAL VITAMINS W/ FOLIC ACID TABLET (FP) PO SCH (11:02)
[2016-10-31] MEDS: MAGNESIUM HYDROX 2400MG/30ML ORAL SUSPENSION 30 ML CUP PO PRN (11:06)
[2016-10-31] MEDS: FLUOCINONIDE 0.05% TOP OINT (60 GM TUBE) TP SCH ×2 (11:46→22:48)
[2016-10-31] MEDS: NICOTINE POLACRILEX 4 MG GUM BUC PRN ×2 (12:52→17:35)
--- NOTE | 2016-10-31 15:59 | PN ---
[facility] Progress Note (SOAP) Subjective: alert,irritable,anxious,interrupted sleep,rash of face Objective: 10/31/16 15:57 Vital Signs Temperature 97.7 F 10/31/16 14:41 Pulse Rate 89 10/31/16 14:41 Respiratory Rate 20 10/31/16 14:41 Blood Pressure 123/84 10/31/16 14:41 O2 Sat by Pulse Oximetry (%) Laboratory Last Values WBC 8.2 K/mm3 (4.0-10.0) 10/28/16 14:00 RBC 4.46 M/mm3 (3.60-5.2) 10/28/16 14:00 Hgb 14.3 GM/dL (10.7-15.3) D 10/28/16 14:00 Hct 43.5 % (32.4-45.2) D 10/28/16 14:00 MCV 97.6 fl (80-96) H 10/28/16 14:00 MCH 32.1 pg (25.7-33.7) 10/28/16 14:00 MCHC 32.8 g/dl (32.0-36.0) 10/28/16 14:00 RDW 14.0 % (11.6-15.6) 10/28/16 14:00 Plt Count 286 K/MM3 (134-434) D 10/28/16 14:00 MPV 9.8 fl (7.5-11.1) 10/28/16 14:00 Sodium 135 mmol/L (136-145) L 10/28/16 14:00 Potassium 4.1 mmol/L (3.5-5.1) 10/28/16 14:00 Chloride 99 mmol/L (98-107) 10/28/16 14:00 Carbon Dioxide 26 mmol/L (21-32) 10/28/16 14:00 Anion Gap 10 (8-16) 10/28/16 14:00 BUN 11 mg/dL (7-18) D 10/28/16 14:00 Creatinine 0.8 mg/dL (0.55-1.02) 10/28/16 14:00 Creat Clearance w eGFR > 60 (>60) 10/28/16 14:00 POC Glucometer 188 UNITS (()) 10/31/16 06:05 Random Glucose 279 mg/dL (74-106) H 10/28/16 14:00 Calcium 9.4 mg/dL (8.5-10.1) 10/28/16 14:00 Total Bilirubin 0.7 mg/dL (0.2-1.0) D 10/28/16 14:00 AST 26 U/L (15-37) D 10/28/16 14:00 ALT 23 U/L (12-78) D 10/28/16 14:00 Alkaline Phosphatase 101 U/L (45-117) 10/28/16 14:00 Total Protein 7.6 g/dl (6.4-8.2) D 10/28/16 14:00 Albumin 4.2 g/dl (3.4-5.0) D 10/28/16 14:00 Urine Color Straw 10/28/16 15:50 Urine Appearance Clear 10/28/16 15:50 Urine pH 5.0 (5.0-8.0) 10/28/16 15:50 Ur Specific [place] 1.015 (1.005-1.025) 10/28/16 15:50 Urine Protein Negative (NEGATIVE) 10/28/16 15:50 Urine Glucose (UA) 3+ (NEGATIVE) H 10/28/16 15:50 Urine Ketones 1+ (NEGATIVE) H 10/28/16 15:50 Urine Blood 1+ (NEGATIVE) H 10/28/16 15:50 Urine Nitrite Negative (NEGATIVE) 10/28/16 15:50 Urine Bilirubin Negative (NEGATIVE) 10/28/16 15:50 Urine Urobilinogen Negative mg/dL (0.2-1.0) 10/28/16 15:50 Ur Leukocyte Esterase Negative (NEGATIVE) 10/28/16 15:50 Urine RBC 1 /hpf (0-3) 10/28/16 15:50 Urine WBC <1 /hpf (3-5) 10/28/16 15:50 Ur Epithelial Cells Rare /hpf (FEW) 10/28/16 15:50 RPR Titer Nonreactive (NONREACTIVE) 10/28/16 14:00 Assessment: 10/31/16 15:58 withdrawal symptom Plan: continue detox,lidex ointment,discharge in am
[2016-10-31] MEDS ORDERED: chlordiazePOXIDE 5 MG CAPSULE ONE ×2 (17:20→21:59)
[2016-10-31] MEDS ORDERED: INSULIN (NOVOLOG) ASPART 100 UNITS/ML 10ML VIAL ONE (17:20)
[2016-10-31] MEDS: chlordiazePOXIDE HCL 10 MG CAPSULE PO SCH ×2 (17:28→23:30)
[2016-10-31] MEDS ORDERED: QUEtiapine FUMARATE 50 MG TABLET ONE (21:59)
[2016-10-31] MEDS: INSULIN DETEMIR 100 UNITS/ML MDV SQ SCH (22:46)
[2016-10-31] MEDS: QUEtiapine FUMARATE 100 MG TABLET (FP) PO SCH (22:48)
[2016-11-01] MEDS: MAGNESIUM HYDROX 2400MG/30ML ORAL SUSPENSION 30 ML CUP PO PRN (02:34)
[2016-11-01] MEDS: diphenhydrAMINE HCL 50 MG CAPSULE PO PRN (02:37)
[2016-11-01] MEDS ORDERED: chlordiazePOXIDE 5 MG CAPSULE ONE (04:47)
[2016-11-01] MEDS: chlordiazePOXIDE HCL 10 MG CAPSULE PO SCH (06:24)
[2016-11-01] MEDS: INSULIN SLIDING SCALE (NOVOLOG) 1 VIAL SQ SCH (06:50)
[2016-11-01 06:59] VITALS: BP 100/52; PULSE 87; TEMP 97.2
[2016-11-01] MEDS: metFORMIN HCL 500 MG TABLET (FP) PO SCH (07:06)
[2016-11-01] MEDS: PRENATAL VITAMINS W/ FOLIC ACID TABLET (FP) PO SCH (09:22)
[2016-11-01] MEDS: FLUOCINONIDE 0.05% TOP OINT (60 GM TUBE) TP SCH (09:22)
[2016-11-01] MEDS: NICOTINE 21 MG/24 HOURS TOPICAL PATCH TD SCH (09:22)
--- NOTE | 2016-11-01 09:30 | DS ---
[facility] Detox Discharge Summary Admission Date: 10/28/16 Discharge Date: 11/01/16 - History Present History: Alcohol Dependence, Cannabis Dependence, Cocaine Dependence Additional Comments: FOLLOW UP WITH AFTER CARE PROGRAM ARRANGEMENT Pertinent Past History: ASTHMA TYPE 2 DM - Physical Exam Results Vital Signs: Vital Signs Temperature 97.2 F L 11/01/16 06:58 Pulse Rate 87 11/01/16 06:58 Respiratory Rate 16 11/01/16 06:58 Blood Pressure 100/52 11/01/16 06:58 O2 Sat by Pulse Oximetry (%) Pertinent Admission Physical Exam Findings: WITHDRAWAL SYMPTOM - Treatment Hospital Course: Detox Protocol Followed, Detoxed Safely, Responded well, Discharged Condition Good, Rehab Referral Accepted Patient has Accepted a Rehab Referral to: [facility] - Medication Discharge Medications: Ambulatory Orders Escitalopram Oxalate [Lexapro -] 10 mg PO DAILY #30 tablet 06/15/16 Albuterol Sulfate Inhaler - [Ventolin HFA Inhaler -] 2 inh IH Q4H PRN #1 inhaler 07/01/16 Quetiapine Fumarate [Seroquel -] 50 mg PO HS #30 tablet 07/01/16 Alogliptin Benzoate [Alogliptin] 25 mg PO DAILY 10/28/16 Insulin Glargine,Hum.rec.anlog [Lantus Solostar PEN (NF)] 25 - 30 units SQ DAILY 10/28/16 Metformin HCl [Glucophage -] 500 mg PO BID 10/28/16 Quetiapine Fumarate [Seroquel] 100 mg PO HS #30 tablet 10/29/16 - Diagnosis (1) Contact dermatitis Current Visit: Yes Status: Acute - AMA Did Patient Leave Against Medical Advice: No
== END 2016-11-01 09:50 | disposition home or self-care (01) | DRG 774 ==
LOC: YASAS 08:40 → Y6N 12:44
PROVIDERS: ADMIT Internal Medicine Addiction Medicine; ATTEND Internal Medicine Addiction Medicine
PROC: HZ2ZZZZ Detoxification Services for Substance Abuse Treatment (ICD-10-PCS; principal; 2016-11-01)
DX: F10.230 Alcohol dependence with withdrawal, uncomplicated (principal); F14.20 Cocaine dependence, uncomplicated; F12.20 Cannabis dependence, uncomplicated; F17.210 Nicotine dependence, cigarettes, uncomplicated; F32.9 Major depressive disorder, single episode, unspecified; F19.24 Other psychoactive substance dependence with psychoactive substance-induced mood disorder; F19.282 Other psychoactive substance dependence with psychoactive substance-induced sleep disorder; E11.9 Type 2 diabetes mellitus without complications; Z79.4 Long term (current) use of insulin; J45.909 Unspecified asthma, uncomplicated
CPT/HCPCS: 36415; 73610-TC-RT; 80053; 81003; 81015; 85027; 86593; 93005; 93010

== ENCOUNTER 2017-04-16 18:30 | Inpatient (IN) | payer OTHER ==
[2017-04-16 19:28] VITALS: BMI 22.3
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
[2017-04-16] MEDS ORDERED: LOPERAMIDE HCL 2 MG CAPSULE PO PRN (21:19)
[2017-04-16] MEDS ORDERED: MAG HYDROX/AL HYDROX/SIMETH 30 ML UNIT-DOSE CUP PO PRN (21:19)
[2017-04-16] MEDS ORDERED: MENTHOL/PHENOL 1 EACH UD MM PRN (21:19)
[2017-04-16] MEDS ORDERED: MAGNESIUM CITRATE 300 ML BOTTLE PO PRN (21:19)
[2017-04-16] MEDS ORDERED: ACETAMINOPHEN 325 MG TABLET (FP) PO PRN (21:19)
[2017-04-16] MEDS ORDERED: P-EPHED 60MG/TRIPROLIDI 2.5MG TABLET PO PRN (21:19)
[2017-04-16] MEDS ORDERED: guaiFENesin/D-METHORPHAN HB 10 ML UNIT-DOSE CUPS PO PRN (21:19)
[2017-04-16] MEDS ORDERED: IBUPROFEN 400 MG TABLET (FP) PO PRN (21:19)
[2017-04-16] MEDS ORDERED: NICOTINE POLACRILEX 2 MG GUM BC PRN (21:19)
[2017-04-16] MEDS ORDERED: ALBUTEROL SO4 18 GM HFA INHALER IH PRN (21:22)
[2017-04-16] MEDS ORDERED: COLLOIDAL OATMEAL 1 EACH PACKET TP SCH (22:00)
[2017-04-16] MEDS: THIAMINE HCL 100 MG TABLET (FP) PO SCH (22:50)
[2017-04-16] MEDS: chlordiazePOXIDE HCL 25 MG CAPSULE PO SCH (22:50)
[2017-04-16] MEDS: ARTIFICIAL TEARS (POLYVINYL ALCOHOL 1.4%) OPTH DROPS OU SCH (22:50)
[2017-04-16] MEDS ORDERED: COLLOIDAL OATMEAL 1 BAR EACH TP SCH (23:12)
[2017-04-16] MEDS ORDERED: INSULIN (NOVOLOG) ASPART 100 UNITS/ML 10ML VIAL SQ ONE (23:15)
[2017-04-16 23:27] LABS: URINE APPEARANCE CLEAR; URINE BILIRUBIN NEGATIVE (NEGATIVE); URINE BLOOD 1+ (NEGATIVE); URINE COLOR YELLOW; URINE GLUCOSE (UA) 3+ (NEGATIVE); URINE KETONE NEGATIVE (NEGATIVE); URINE LEUK ESTERASE TRACE (NEGATIVE); URINE NITRITE NEGATIVE (NEGATIVE); URINE PROTEIN NEGATIVE (NEGATIVE)
[2017-04-16 23:44] LABS: EPI CELLS RARE /HPF (FEW); URINE BACTERIA RARE /hpf (NONE SEEN); URINE MUCUS FEW
[2017-04-16] MEDS ORDERED: COLLOIDAL OATMEAL 1 BAR EACH TP PRN (23:49)
[2017-04-17] MEDS: chlordiazePOXIDE HCL 25 MG CAPSULE PO PRN ×4 (01:32→19:56)
[2017-04-17] MEDS: chlordiazePOXIDE HCL 25 MG CAPSULE PO SCH ×4 (05:49→22:38)
[2017-04-17] MEDS: metFORMIN HCL 500 MG TABLET (FP) PO SCH ×2 (06:09→17:14)
[2017-04-17] MEDS ORDERED: INSULIN (NOVOLOG) ASPART 100 UNITS/ML 10ML VIAL ONE ×3 (06:55→17:08)
[2017-04-17] MEDS: INSULIN SLIDING SCALE (NOVOLOG) 1 VIAL SQ SCH ×3 (07:04→17:14)
[2017-04-17] MEDS: ARTIFICIAL TEARS (POLYVINYL ALCOHOL 1.4%) OPTH DROPS OU SCH ×2 (10:46→22:52)
[2017-04-17] MEDS: PRENATAL VITAMINS W/ FOLIC ACID TABLET (FP) PO SCH (10:46)
[2017-04-17 11:05] LABS: ALBUMIN 3.4 g/dl (3.4-5.0); ANION GAP 7 (8-16); BLOOD UREA NITROGEN 12 mg/dL (7-18); CALCIUM 8.1 mg/dL (8.5-10.1); CHLORIDE 104 mmol/L (98-107); CO2 28 mmol/L (21-32); CREATININE 0.8 mg/dL (0.55-1.02); GLUCOSE,RANDOM 157 mg/dL (74-106); POTASSIUM 3.5 mmol/L (3.5-5.1); SGOT/AST 16 U/L (15-37); SGPT/ALT 17 U/L (12-78); SODIUM 139 mmol/L (136-145)
[2017-04-17 11:06] LABS: HEMATOCRIT 41.5 % (32.4-45.2); HEMOGLOBIN 13.5 GM/dL (10.7-15.3); MCH 32.8 pg (25.7-33.7); MCHC 32.6 g/dl (32.0-36.0); MEAN CELL VOLUME 100.4 fl (80-96); MEAN PLT VOLUME 8.9 fl (7.5-11.1); PLATELET COUNT 244 K/MM3 (134-434); RBC 4.13 M/mm3 (3.60-5.2); WHITE BLOOD COUNT 8.1 K/mm3 (4.0-10.0)
[2017-04-17 11:07] LABS: ALK PHOS 87 U/L (45-117); BILIRUBIN,TOTAL 0.7 mg/dL (0.2-1.0); TOT PROT 6.2 g/dl (6.4-8.2)
--- NOTE | 2017-04-17 12:42 | PN ---
S CIWA - CIWA Score Nausea/Vomitin Muscle Tremors: 3 Anxiety: 3 Agitation: 2 Paroxysmal Sweats: 1-Minimal Palms Moist Orientation: 0-Oriented Tacttile Disturbances: 1-Very Mild Itch/Numbness Auditory Disturbances: 1-Very Mild Visual Disturbances: 0-None Headache: 2-Mild CIWA-Ar Total Score: 16 [facility] Progress Note (SOAP) Subjective: ALERT,IRRITABLE,ANXIOUS,INTERRUPTED SLEEP,TREMOR Objective: 04/17/17 12:40 Vital Signs Temperature 96.8 F L 04/17/17 10:21 Pulse Rate 80 04/17/17 10:21 Respiratory Rate 18 04/17/17 10:21 Blood Pressure 109/83 04/17/17 10:21 O2 Sat by Pulse Oximetry (%) EKG NSR,NORMAL ECG Laboratory Last Values WBC 8.1 K/mm3 (4.0-10.0) 04/17/17 08:00 RBC 4.13 M/mm3 (3.60-5.2) 04/17/17 08:00 Hgb 13.5 GM/dL (10.7-15.3) 04/17/17 08:00 Hct 41.5 % (32.4-45.2) 04/17/17 08:00 MCV 100.4 fl (80-96) H 04/17/17 08:00 MCH 32.8 pg (25.7-33.7) 04/17/17 08:00 MCHC 32.6 g/dl (32.0-36.0) 04/17/17 08:00 RDW 15.0 % (11.6-15.6) 04/17/17 08:00 Plt Count 244 K/MM3 (134-434) 04/17/17 08:00 MPV 8.9 fl (7.5-11.1) 04/17/17 08:00 Sodium 139 mmol/L (136-145) 04/17/17 08:00 Potassium 3.5 mmol/L (3.5-5.1) 04/17/17 08:00 Chloride 104 mmol/L (98-107) 04/17/17 08:00 Carbon Dioxide 28 mmol/L (21-32) 04/17/17 08:00 Anion Gap 7 (8-16) L 04/17/17 08:00 BUN 12 mg/dL (7-18) 04/17/17 08:00 Creatinine 0.8 mg/dL (0.55-1.02) 04/17/17 08:00 Creat Clearance w eGFR > 60 (>60) 04/17/17 08:00 POC Glucometer 145 UNITS (80-120) 04/17/17 10:56 Random Glucose 157 mg/dL (74-106) H D 04/17/17 08:00 Calcium 8.1 mg/dL (8.5-10.1) L 04/17/17 08:00 Total Bilirubin 0.7 mg/dL (0.2-1.0) 04/17/17 08:00 AST 16 U/L (15-37) D 04/17/17 08:00 ALT 17 U/L (12-78) D 04/17/17 08:00 Alkaline Phosphatase 87 U/L (45-117) 04/17/17 08:00 Total Protein 6.2 g/dl (6.4-8.2) L 04/17/17 08:00 Albumin 3.4 g/dl (3.4-5.0) 04/17/17 08:00 Urine Color Yellow 04/16/17 22:21 Urine Appearance Clear 04/16/17 22:21 Urine pH 5.0 (5.0-8.0) 04/16/17 22:21 Ur Specific [place] 1.024 (1.001-1.035) 04/16/17 22:21 Urine Protein Negative (NEGATIVE) 04/16/17 22:21 Urine Glucose (UA) 3+ (NEGATIVE) H 04/16/17 22:21 Urine Ketones Negative (NEGATIVE) 04/16/17 22:21 Urine Blood 1+ (NEGATIVE) H 04/16/17 22:21 Urine Nitrite Negative (NEGATIVE) 04/16/17 22:21 Urine Bilirubin Negative (NEGATIVE) 04/16/17 22:21 Urine Urobilinogen 2.0 mg/dL (0.2-1.0) H 04/16/17 22:21 Ur Leukocyte Esterase Trace (NEGATIVE) 04/16/17 22:21 Urine WBC (Auto) 3 /hpf (3-5) 04/16/17 22:21 Urine RBC (Auto) 1 /hpf (0-3) 04/16/17 22:21 Ur Epithelial Cells Rare /HPF (FEW) 04/16/17 22:21 Urine Bacteria Rare /hpf (NONE SEEN) 04/16/17 22:21 Urine Mucus Few 04/16/17 22:21 RPR Titer Nonreactive (NONREACTIVE) 04/17/17 08:00 Assessment: 04/17/17 12:41 WITHDRAWAL SYMPTOM Plan: CONTINUE DETOX,BGM MONITORING,BGM 203
--- NOTE | 2017-04-17 13:38 | EKG ---
Test Reason : Blood Pressure : / mmHG Vent. Rate : 084 BPM Atrial Rate : 084 BPM P-R Int : 116 ms QRS Dur : 078 ms QT Int : 348 ms P-R-T Axes : 058 067 053 degrees QTc Int : 411 ms NORMAL SINUS RHYTHM NORMAL ECG WHEN COMPARED WITH ECG OF 28-OCT-2016 15:31, NO SIGNIFICANT CHANGE WAS FOUND Confirmed by PIA MORENO MD ([id number]) on 04/17/2017 1:38:06 PM Referred By: Confirmed By:PIA MORENO MD
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
[2017-04-17] MEDS: MAGNESIUM HYDROX 2400MG/30ML ORAL SUSPENSION 30 ML CUP PO PRN (19:57)
[2017-04-17] MEDS ORDERED: QUEtiapine FUMARATE 50 MG TABLET PO SCH (22:00)
[2017-04-17] MEDS: THIAMINE HCL 100 MG TABLET (FP) PO SCH (22:38)
[2017-04-18] MEDS: chlordiazePOXIDE HCL 25 MG CAPSULE PO SCH ×2 (05:59→10:38)
[2017-04-18] MEDS: MAGNESIUM HYDROX 2400MG/30ML ORAL SUSPENSION 30 ML CUP PO PRN (06:01)
[2017-04-18] MEDS: metFORMIN HCL 500 MG TABLET (FP) PO SCH (07:00)
[2017-04-18] MEDS: INSULIN SLIDING SCALE (NOVOLOG) 1 VIAL SQ SCH ×2 (08:00→11:57)
[2017-04-18] MEDS ORDERED: INSULIN (NOVOLOG) ASPART 100 UNITS/ML 10ML VIAL ONE ×2 (08:36→11:56)
[2017-04-18] MEDS: chlordiazePOXIDE HCL 25 MG CAPSULE PO PRN ×2 (08:40→13:29)
[2017-04-18] MEDS: PRENATAL VITAMINS W/ FOLIC ACID TABLET (FP) PO SCH (10:38)
[2017-04-18] MEDS: ARTIFICIAL TEARS (POLYVINYL ALCOHOL 1.4%) OPTH DROPS OU SCH (10:38)
--- NOTE | 2017-04-18 14:40 | PN ---
[facility] CIWA - CIWA Score Nausea/Vomitin-No Nausea/No Vomiting Muscle Tremors: 3 Anxiety: 3 Agitation: 3 Paroxysmal Sweats: 1-Minimal Palms Moist Orientation: 0-Oriented Tacttile Disturbances: 0-None Auditory Disturbances: 0-None Visual Disturbances: 0-None Headache: 0-None Present CIWA-Ar Total Score: 10 S Progress Note (SOAP) Subjective: depressive mood tremor irritable Objective: 04/18/17 14:39 Vital Signs Temperature 96.3 F L 04/18/17 10:00 Pulse Rate 88 04/18/17 10:00 Respiratory Rate 18 04/18/17 06:55 Blood Pressure 117/75 04/18/17 10:00 O2 Sat by Pulse Oximetry (%) Vital Signs Temperature 96.3 F L 04/18/17 10:00 Pulse Rate 88 04/18/17 10:00 Respiratory Rate 18 04/18/17 06:55 Blood Pressure 117/75 04/18/17 10:00 O2 Sat by Pulse Oximetry (%) Laboratory Last Values WBC 8.1 K/mm3 (4.0-10.0) 04/17/17 08:00 RBC 4.13 M/mm3 (3.60-5.2) 04/17/17 08:00 Hgb 13.5 GM/dL (10.7-15.3) 04/17/17 08:00 Hct 41.5 % (32.4-45.2) 04/17/17 08:00 MCV 100.4 fl (80-96) H 04/17/17 08:00 MCH 32.8 pg (25.7-33.7) 04/17/17 08:00 MCHC 32.6 g/dl (32.0-36.0) 04/17/17 08:00 RDW 15.0 % (11.6-15.6) 04/17/17 08:00 Plt Count 244 K/MM3 (134-434) 04/17/17 08:00 MPV 8.9 fl (7.5-11.1) 04/17/17 08:00 Sodium 139 mmol/L (136-145) 04/17/17 08:00 Potassium 3.5 mmol/L (3.5-5.1) 04/17/17 08:00 Chloride 104 mmol/L (98-107) 04/17/17 08:00 Carbon Dioxide 28 mmol/L (21-32) 04/17/17 08:00 Anion Gap 7 (8-16) L 04/17/17 08:00 BUN 12 mg/dL (7-18) 04/17/17 08:00 Creatinine 0.8 mg/dL (0.55-1.02) 04/17/17 08:00 Creat Clearance w eGFR > 60 (>60) 04/17/17 08:00 POC Glucometer 179 UNITS (80-120) 04/18/17 11:53 Random Glucose 157 mg/dL (74-106) H D 04/17/17 08:00 Calcium 8.1 mg/dL (8.5-10.1) L 04/17/17 08:00 Total Bilirubin 0.7 mg/dL (0.2-1.0) 04/17/17 08:00 AST 16 U/L (15-37) D 04/17/17 08:00 ALT 17 U/L (12-78) D 04/17/17 08:00 Alkaline Phosphatase 87 U/L (45-117) 04/17/17 08:00 Total Protein 6.2 g/dl (6.4-8.2) L 04/17/17 08:00 Albumin 3.4 g/dl (3.4-5.0) 04/17/17 08:00 Urine Color Yellow 04/16/17 22:21 Urine Appearance Clear 04/16/17 22:21 Urine pH 5.0 (5.0-8.0) 04/16/17 22:21 Ur Specific [place] 1.024 (1.001-1.035) 04/16/17 22:21 Urine Protein Negative (NEGATIVE) 04/16/17 22:21 Urine Glucose (UA) 3+ (NEGATIVE) H 04/16/17 22:21 Urine Ketones Negative (NEGATIVE) 04/16/17 22:21 Urine Blood 1+ (NEGATIVE) H 04/16/17 22:21 Urine Nitrite Negative (NEGATIVE) 04/16/17 22:21 Urine Bilirubin Negative (NEGATIVE) 04/16/17 22:21 Urine Urobilinogen 2.0 mg/dL (0.2-1.0) H 04/16/17 22:21 Ur Leukocyte Esterase Trace (NEGATIVE) 04/16/17 22:21 Urine WBC (Auto) 3 /hpf (3-5) 04/16/17 22:21 Urine RBC (Auto) 1 /hpf (0-3) 04/16/17 22:21 Ur Epithelial Cells Rare /HPF (FEW) 04/16/17 22:21 Urine Bacteria Rare /hpf (NONE SEEN) 04/16/17 22:21 Urine Mucus Few 04/16/17 22:21 RPR Titer Nonreactive (NONREACTIVE) 04/17/17 08:00 lab noted Assessment: 04/18/17 14:39 withdrawal sx depressive mood Plan: continue detox psychiatric consultation
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
[2017-04-18 15:28] VITALS: BP 114/87; PULSE 95; TEMP 97.7
[2017-04-18] MEDS ORDERED: chlordiazePOXIDE 5 MG CAPSULE PO SCH (23:00)
--- NOTE | 2017-04-19 11:38 | DS ---
[facility] Detox Discharge Summary Admission Date: 04/16/17 - History Present History: Alcohol Dependence, Cannabis Dependence, Cocaine Dependence - Physical Exam Results Vital Signs: Vital Signs Temperature 97.7 F 04/18/17 15:28 Pulse Rate 95 H 04/18/17 15:28 Respiratory Rate 18 04/18/17 15:28 Blood Pressure 114/87 04/18/17 15:28 O2 Sat by Pulse Oximetry (%) - Medication Discharge Medications: Ambulatory Orders Escitalopram Oxalate [Lexapro -] 10 mg PO DAILY #30 tablet 06/15/16 Quetiapine Fumarate [Seroquel -] 50 mg PO HS #30 tablet 07/01/16 Alogliptin Benzoate [Alogliptin] 25 mg PO DAILY 10/28/16 Quetiapine Fumarate [Seroquel] 100 mg PO HS #30 tablet 10/29/16 Albuterol Sulfate Inhaler - [Ventolin HFA Inhaler -] 2 inh IH Q4H PRN #1 inhaler 11/01/16 Insulin Glargine,Hum.rec.anlog [Lantus Solostar PEN -] 25 - 30 units SQ DAILY # 1 unit 11/01/16 Metformin HCl [Glucophage -] 500 mg PO BID #60 tab 11/01/16 Quetiapine Fumarate [Seroquel -] 50 mg PO HS #30 tablet 04/17/17 - AMA Did Patient Leave Against Medical Advice: No (sent to [facility] for mental illness)
[2017-04-19] MEDS ORDERED: chlordiazePOXIDE HCL 10 MG CAPSULE PO SCH (23:00)
== END 2017-04-18 13:45 | disposition short-term general hospital (02) | DRG 774 ==
LOC: YASAS 18:30 → Y6N 21:53
PROVIDERS: ADMIT Internal Medicine; ATTEND Internal Medicine
PROC: HZ2ZZZZ Detoxification Services for Substance Abuse Treatment (ICD-10-PCS; principal; 2017-04-16)
DX: F10.230 Alcohol dependence with withdrawal, uncomplicated (principal); F14.20 Cocaine dependence, uncomplicated; F12.20 Cannabis dependence, uncomplicated; F17.213 Nicotine dependence, cigarettes, with withdrawal; F19.24 Other psychoactive substance dependence with psychoactive substance-induced mood disorder; G47.00 Insomnia, unspecified; J45.909 Unspecified asthma, uncomplicated; Z79.4 Long term (current) use of insulin
CPT/HCPCS: 36415; 80053; 81003; 81015; 82962; 85027; 86593; 93005; 93010

== ENCOUNTER 2017-04-19 13:50 | Inpatient (IN) | payer OTHER ==
[2017-04-19 14:50] VITALS: BMI 25.7
[2017-04-19] MEDS ORDERED: P-EPHED 60MG/TRIPROLIDI 2.5MG TABLET PO PRN (15:11)
[2017-04-19] MEDS ORDERED: ACETAMINOPHEN 325 MG TABLET (FP) PO PRN (15:11)
[2017-04-19] MEDS ORDERED: MENTHOL/PHENOL 1 EACH UD MM PRN (15:11)
[2017-04-19] MEDS ORDERED: chlordiazePOXIDE HCL 25 MG CAPSULE PO PRN (15:11)
[2017-04-19] MEDS ORDERED: MAGNESIUM CITRATE 300 ML BOTTLE PO PRN (15:11)
[2017-04-19] MEDS ORDERED: LOPERAMIDE HCL 2 MG CAPSULE PO PRN (15:11)
[2017-04-19] MEDS ORDERED: guaiFENesin/D-METHORPHAN HB 10 ML UNIT-DOSE CUPS PO PRN (15:11)
[2017-04-19] MEDS ORDERED: ALBUTEROL SO4 18 GM HFA INHALER IH PRN (15:18)
--- NOTE | 2017-04-19 15:34 | HP ---
CIWA Score - CIWA Score Nausea/Vomitin-No Nausea/No Vomiting Muscle Tremors: 3 Anxiety: 3 Agitation: 3 Paroxysmal Sweats: 3 Orientation: 0-Oriented Tacttile Disturbances: 0-None Auditory Disturbances: 0-None Visual Disturbances: 0-None Headache: 0-None Present CIWA-Ar Total Score: 12 Admission ROS BHS - HPI Chief Complaint: I need to complete my detox Allergies/Adverse Reactions: Allergies Allergy/AdvReac Type Severity Reaction Status Date / Time mustard Allergy Intermediate Hives Verified 04/19/17 15:02 shellfish derived Allergy Intermediate Hives Verified 04/19/17 15:02 No Known Drug Allergies Allergy Verified 04/19/17 15:02 History of Present Illness: pt is a 46yr old female with a history of alcohol dependence seeking for treatment. pt returned back from [place] after pt was sent there for evaluation because she was cutting her wrist. pt denies of hurting self today. pt was encouraged to speak to staff and or psych for any thoughts or desire to hurt herself again. Exam Limitations: No Limitations - Ebola screening Have you traveled outside of the country in the last 21 days: No (N) Have you had contact with anyone from an Ebola affected area: No Have you been sick,other than usual withdrawal symptoms: No Do you have a fever: No - Review of Systems Constitutional: Chills, Diaphoresis, Loss of Appetite, Changes in sleep EENT: reports: Tearing Respiratory: reports: No Symptoms reported Cardiac: reports: Syncope GI: reports: Nausea, Poor Appetite, Poor Fluid Intake : reports: Burning Musculoskeletal: reports: No Symptoms Reported Integumentary: reports: Bruising (left cheek) Neuro: reports: Tingling, Tremors Endocrine: reports: Excessive Sweating, Flushing, Intolerance to Cold, Intolerance to Heat Hematology: reports: No Symptoms Reported Psychiatric: reports: Judgement Intact, Mood/Affect Appropiate, Orientated x3, Agitated, Anxious Other Systems: Reviewed and Negative Patient History - Patient Medical History Hx Anemia: No Hx Asthma: Yes Hx Chronic Obstructive Pulmonary Disease (COPD): No Hx Cancer: No Hx Cardiac Disorders: No Hx Congestive Heart Failure: No Hx Hypertension: No Hx Hypercholesterolemia: No Hx Pacemaker: No HX Cerebrovascular Accident: No Hx Seizures: No Hx Dementia: No Hx Diabetes: Yes (NIDDM) Hx Gastrointestinal Disorders: No Hx Liver Disease: No Hx Genitourinary Disorders: No Hx Sexually Transmitted Disorders: No Hx Renal Disease (ESRD): No Hx Thyroid Disease: No Hx Human Immunodeficiency Virus (HIV): No (NEGATIVE HX) Hx Hepatitis C: No Hx Depression: Yes Hx Suicide Attempt: Yes (cut left wrist, 04/18/2016) Hx Bipolar Disorder: No Hx Schizophrenia: No Other Medical History: insomnia - Patient Surgical History Past Surgical History: Yes Hx Neurologic Surgery: No Hx Cataract Extraction: No Hx Cardiac Surgery: No Hx Lung Surgery: No Hx Breast Surgery: No Hx Breast Biopsy: No Hx Abdominal Surgery: No Hx Appendectomy: No Hx Cholecystectomy: No Hx Genitourinary Surgery: No Hx Section: Yes (x3) Hx Orthopedic Surgery: No Hx Hysterectomy: No Anesthesia Reaction: No - PPD History Previous Implant?: Yes Documented Results: Negative w/proof Implanted On Prior R Admission?: Yes Date: 11/01/16 Results: 0 mm PPD to be Administered?: No - Reproductive History Patient is a Female of Child Bearing Age (11 -55 yrs old): Yes Last Menstrual Period: 02/11/17 Patient : No - Smoking Cessation Smoking history: Current every day smoker Have you smoked in the past 12 months: Yes Aproximately how many cigarettes per day: 8 Cigars Per Day: 0 Hx Chewing Tobacco Use: No Initiated information on smoking cessation: Yes 'Breaking Loose' booklet given: 04/19/17 - Substance & Tx. History Hx Alcohol Use: Yes Hx Substance Use: Yes Substance Use Type: Alcohol, Cocaine Hx Substance Use Treatment: Yes ([facility] 04/16/2016) - Substances Abused Cocaine Route: Inhalation Frequency: 1-3 times last 30 days Amount used: $20 Age of first use: 27 Date of Last Use: 04/11/17 Alcohol-rum/vodka Route: Oral Frequency: 3-6 times per week Amount used: 2 pts. Age of first use: 17 Date of Last Use: 04/16/17 Family Disease History - Family Disease History Family Disease History: Diabetes: Father (HTN,HYPERCHOLESTEROLEMIA), Mother (HTN ,HYPERCHOLESTEROLEMIA), Heart Disease: Father, Mother Admission Physical Exam BHS - Vital Signs Vital Signs: Vital Signs - 24 hr 04/19/17 14:47 Temperature 98.7 F Pulse Rate 72 Respiratory 18 Rate Blood Pressure 116/90 - Physical General Appearance: Yes: Appropriately Dressed, Moderate Distress, Tremorous, Irritable, Sweating, Anxious HEENTM: Yes: Normal Voice, Nasal Congestion, Rhinorrhea Respiratory: Yes: Lungs Clear, Normal Breath Sounds, No Respiratory Distress Neck: Yes: No masses,lesions,Nodules Breast: Yes: Within Normal Limits Cardiology: Yes: Regular Rhythm, Regular Rate, S1, S2 Abdominal: Yes: Normal Bowel Sounds, Non Tender, Soft Genitourinary: Yes: Within Normal Limits Back: Yes: Normal Inspection Musculoskeletal: Yes: Gait Steady Extremities: Yes: Normal Capillary Refill, Normal Inspection, Non-Tender, Tremors Neurological: Yes: Fully Oriented, Alert, Normal Response Integumentary: Yes: Normal Color Lymphatic: Yes: Within Normal Limits - Diagnostic (1) Alcohol dependence with uncomplicated withdrawal Current Visit: Yes Status: Chronic (2) Anxiety and depression Current Visit: Yes Status: Chronic (3) Marijuana dependence Current Visit: Yes Status: Chronic (4) Nicotine dependence Current Visit: Yes Status: Chronic Qualifiers: Nicotine product type: cigarettes Substance use status: uncomplicated Qualified Code(s): F17.210 - Nicotine dependence, cigarettes, uncomplicated (5) Diabetes 1.5, managed as type 1 Current Visit: Yes Status: Chronic (6) History of asthma Current Visit: Yes Status: Chronic (7) Facial bruising Current Visit: Yes Status: Acute (8) Insomnia Current Visit: Yes Status: Chronic (9) Vaginitis due to Stephany Current Visit: Yes Status: Acute Cleared for Admission [facility] - Detox or Rehab [facility] Level of Care: Medically Managed Detox Regimen/Protocol: Librium [facility] Breath Alcohol Content Breath Alcohol Content: 0 Urine Pregancy Test - Result Urine Test Results: Negative- NO Line Present Urine Drug Screen - Results Drug Screen Negative: No Urine Drug Screen Results: THC-Marijuana, BZO-Benzodiazepines, TCA-Tricyclic Antidepress
[2017-04-19] MEDS ORDERED: COLLOIDAL OATMEAL 1 BAR EACH TP PRN (15:39)
[2017-04-19] MEDS ORDERED: INSULIN (NOVOLOG) ASPART 100 UNITS/ML 10ML VIAL ONE (17:59)
[2017-04-19] MEDS: INSULIN (NOVOLOG) ASPART 100 UNITS/ML 10ML VIAL SQ SCH (18:03)
[2017-04-19] MEDS: chlordiazePOXIDE 5 MG CAPSULE PO SCH ×2 (18:04→22:35)
[2017-04-19] MEDS: metFORMIN HCL 500 MG TABLET (FP) PO SCH (18:05)
[2017-04-19] MEDS: QUEtiapine FUMARATE 50 MG TABLET PO SCH (22:35)
[2017-04-19] MEDS: CLOTRIMAZOLE 1% VAGINAL CREAM WITH APPLICATOR 45 GM TUBE VG SCH (22:35)
[2017-04-19] MEDS: THIAMINE HCL 100 MG TABLET (FP) PO SCH (22:36)
[2017-04-19] MEDS: INSULIN DETEMIR 100 UNITS/ML MDV SQ SCH (22:40)
[2017-04-20] MEDS: MAGNESIUM HYDROX 2400MG/30ML ORAL SUSPENSION 30 ML CUP PO PRN ×2 (05:39→22:29)
[2017-04-20] MEDS: chlordiazePOXIDE 5 MG CAPSULE PO SCH ×2 (05:40→11:11)
[2017-04-20] MEDS: metFORMIN HCL 500 MG TABLET (FP) PO SCH ×2 (08:01→16:49)
[2017-04-20] MEDS: INSULIN (NOVOLOG) ASPART 100 UNITS/ML 10ML VIAL SQ SCH ×3 (08:01→16:32)
[2017-04-20] MEDS ORDERED: ALOGLIPTIN BENZOATE 25 MG PO SCH (10:00)
[2017-04-20] MEDS: PRENATAL VITAMINS W/ FOLIC ACID TABLET (FP) PO SCH (11:10)
[2017-04-20] MEDS: NICOTINE 21 MG/24 HOURS TOPICAL PATCH TD SCH (11:11)
[2017-04-20] MEDS: NICOTINE POLACRILEX 4 MG GUM BC PRN (11:12)
[2017-04-20] MEDS: IBUPROFEN 400 MG TABLET (FP) PO PRN ×2 (11:17→19:49)
[2017-04-20] MEDS: MAG HYDROX/AL HYDROX/SIMETH 30 ML UNIT-DOSE CUP PO PRN (11:32)
--- NOTE | 2017-04-20 11:33 | PN ---
[facility] CIWA - CIWA Score Nausea/Vomitin-No Nausea/No Vomiting Muscle Tremors: 3 Anxiety: 2 Agitation: 3 Paroxysmal Sweats: 2 Orientation: 0-Oriented Tacttile Disturbances: 0-None Auditory Disturbances: 0-None Visual Disturbances: 0-None Headache: 0-None Present CIWA-Ar Total Score: 10 S Progress Note (SOAP) Subjective: sweats tired little anxiety Objective: 04/20/17 11:32 Vital Signs Temperature 97.2 F L 04/20/17 10:00 Pulse Rate 78 04/20/17 10:00 Respiratory Rate 18 04/20/17 10:00 Blood Pressure 120/84 04/20/17 10:00 O2 Sat by Pulse Oximetry (%) aaox3 ambulating no acute distress Assessment: 04/20/17 11:32 mild withdrawal sx Plan: continue detox increase fluids d/c in am
[2017-04-20] MEDS: hydrOXYzine PAMOATE 50 MG CAPSULE (FP) PO PRN ×2 (13:11→22:36)
--- NOTE | 2017-04-20 15:35 | CONSULT ---
[facility] Psychiatric Consult - Data Date of interview: 04/20/17 Admission source: [facility] Identifying data: Pt. is a 46 year old female, single, mother of three, and currently unemployed. This is one of multiple admissions for patient. Pt. admitted to for alcohol and cocaine dependence. Substance Abuse History: Following information confirmed with Ms. Mcmullen: - Smoking Cessation. Smoking history: Current every day smoker. Have you smoked in the past 12 months: Yes. Aproximately how many cigarettes per day: 8. Cigars Per Day: 0. Hx Chewing Tobacco Use: No. Initiated information on smoking cessation: Yes. 'Breaking Loose' booklet given: 04/19/17. - Substance & Tx. History. Hx Alcohol Use: Yes. Hx Substance Use: Yes. Substance Use Type : Alcohol, Cocaine. Hx Substance Use Treatment: Yes ([facility] 04/16/2016). - Substances Abused. Cocaine. Route: Inhalation. Frequency: 1-3 times last 30 days. Amount used: $20. Age of first use: 27. Date of Last Use: 04/11/17. Alcohol-rum/vodka. Route: Oral. Frequency: 3-6 times per week. Amount used: 2 pts. Age of first use: 17. Date of Last Use: 04/16/17 Medical History: Asthma, diabetes Psychiatric History: Pt. transferred to [facility] psychiatric emergency room on 04/19/2017 after patient superically cut her left wrist with a plastic fork in a suicide attempt. Pt. states she felt suicidal after waking up from her nap and started to cut her wrist in an attempt to see blood. Stated she reported it to staff after realizing she was causing harm to herself. After further evaluation in the psychatric emergency room patient was retransferred to the detox unit at [place]. Pt. reports yesterday's suicide attempt as the "first time i tried to hurt myself." Pt. reports h/o depression secondary to many deaths in her life. States, " I lost 5 friends in nine months." Pt. denies h/o OPC. Pt. currently presents as sad, depressed, tearful but hopeful in getting better. Pt. agreeable to starting lexapro and seroquel. Pt. currently denies suicidal and homicidal ideation. Physical/Sexual Abuse/Trauma History: Denies. Mental Status Exam - Mental Status Exam Alert and Oriented to: Time, Place, Person Cognitive Function: Good Patient Appearance: Unkempt Mood: Depressed, Sad Affect: Mood Congruent Patient Behavior: Cooperative Speech Pattern: Appropriate Voice Loudness: Normal Thought Process: Goal Oriented Thought Disorder: Not Present Hallucinations: Denies Suicidal Ideation: Denies Homicidal Ideation: Denies Insight/Judgement: Poor Sleep: Poorly Appetite: Fair Muscle strength/Tone: Normal Gait/Station: Normal Psychiatric Findings - Problem List ([place] 1, 2,3) (1) Alcohol dependence with uncomplicated withdrawal Current Visit: Yes Status: Acute (2) MDD (major depressive disorder) Current Visit: Yes Status: Acute (3) Cocaine dependence Current Visit: Yes Status: Acute Qualifiers: Substance use status: uncomplicated Qualified Code(s): F14.20 - Cocaine dependence, uncomplicated (4) Marijuana dependence Current Visit: Yes Status: Chronic (5) Substance induced mood disorder Current Visit: No Status: Suspected (6) Nicotine dependence Current Visit: Yes Status: Chronic Qualifiers: Nicotine product type: cigarettes Substance use status: uncomplicated Qualified Code(s): F17.210 - Nicotine dependence, cigarettes, uncomplicated - Initial Treatment Plan Initial Treatment Plan: Psychoeducation provided. Detoxification in progress. Lexapro 5mg po daily + seroquel 50mg qhs. Verbal consent given. Benefits and side effects discussed. Will contine to monitor patient.
[2017-04-20] MEDS: chlordiazePOXIDE HCL 10 MG CAPSULE PO SCH ×2 (16:49→22:26)
[2017-04-20 18:08] LABS: URINE APPEARANCE CLEAR; URINE BILIRUBIN NEGATIVE (NEGATIVE); URINE BLOOD NEGATIVE (NEGATIVE); URINE COLOR YELLOW; URINE GLUCOSE (UA) NEGATIVE (NEGATIVE); URINE KETONE NEGATIVE (NEGATIVE); URINE LEUK ESTERASE NEGATIVE (NEGATIVE); URINE NITRITE NEGATIVE (NEGATIVE); URINE PROTEIN NEGATIVE (NEGATIVE); URINE UROBILINOGEN NEGATIVE mg/dL (0.2-1.0)
[2017-04-20] MEDS: QUEtiapine FUMARATE 50 MG TABLET PO SCH (22:26)
[2017-04-20] MEDS: THIAMINE HCL 100 MG TABLET (FP) PO SCH (22:26)
[2017-04-20] MEDS: CLOTRIMAZOLE 1% VAGINAL CREAM WITH APPLICATOR 45 GM TUBE VG SCH (22:26)
[2017-04-20] MEDS: INSULIN DETEMIR 100 UNITS/ML MDV SQ SCH (22:27)
[2017-04-21] MEDS: chlordiazePOXIDE HCL 10 MG CAPSULE PO SCH ×2 (06:03→10:34)
[2017-04-21] MEDS: IBUPROFEN 400 MG TABLET (FP) PO PRN (06:06)
[2017-04-21] MEDS: INSULIN (NOVOLOG) ASPART 100 UNITS/ML 10ML VIAL SQ SCH ×2 (08:35→11:53)
[2017-04-21] MEDS: metFORMIN HCL 500 MG TABLET (FP) PO SCH (08:35)
--- NOTE | 2017-04-21 09:30 | DS ---
[facility] Detox Discharge Summary Admission Date: 04/19/17 Discharge Date: 04/21/17 - History Present History: Alcohol Dependence Pertinent Past History: Nicotine dependence Dm Asthma - Physical Exam Results Vital Signs: Vital Signs Temperature 98.4 F 04/21/17 06:35 Pulse Rate 85 04/21/17 06:35 Respiratory Rate 18 04/21/17 06:35 Blood Pressure 114/66 04/21/17 06:35 O2 Sat by Pulse Oximetry (%) Pertinent Admission Physical Exam Findings: withdrawal symptoms Laboratory Last Values POC Glucometer 63 UNITS (80-120) 04/21/17 05:21 Urine Color Yellow 04/20/17 14:00 Urine Appearance Clear 04/20/17 14:00 Urine pH 8.0 (5.0-8.0) D 04/20/17 14:00 Ur Specific [place] 1.019 (1.001-1.035) 04/20/17 14:00 Urine Protein Negative (NEGATIVE) 04/20/17 14:00 Urine Glucose (UA) Negative (NEGATIVE) 04/20/17 14:00 Urine Ketones Negative (NEGATIVE) 04/20/17 14:00 Urine Blood Negative (NEGATIVE) 04/20/17 14:00 Urine Nitrite Negative (NEGATIVE) 04/20/17 14:00 Urine Bilirubin Negative (NEGATIVE) 04/20/17 14:00 Urine Urobilinogen Negative mg/dL (0.2-1.0) 04/20/17 14:00 Ur Leukocyte Esterase Negative (NEGATIVE) 04/20/17 14:00 labs noted - Treatment Hospital Course: Detox Protocol Followed, Detoxed Safely, Responded well, Discharged Condition Good, Rehab Referral Accepted Patient has Accepted a Rehab Referral to: Outpatient Rehab at [facility] or [facility] - Medication Discharge Medications: Ambulatory Orders Escitalopram Oxalate [Lexapro -] 10 mg PO DAILY #30 tablet 06/15/16 Alogliptin Benzoate [Alogliptin] 25 mg PO DAILY 10/28/16 Insulin Glargine,Hum.rec.anlog [Lantus Solostar PEN -] 25 - 30 units SQ DAILY # 1 unit 11/01/16 Quetiapine Fumarate [Seroquel -] 50 mg PO HS #30 tablet 04/17/17 Mirtazapine [Remeron -] 15 mg PO HS 04/19/17 Albuterol Sulfate Inhaler - [Ventolin HFA Inhaler -] 2 inh IH Q4H PRN #1 inhaler 04/21/17 Escitalopram Oxalate [Lexapro -] 5 mg PO DAILY #30 tablet 04/21/17 Metformin HCl [Glucophage -] 500 mg PO BIDAC #90 tablet 04/21/17 - Diagnosis (1) Alcohol dependence with uncomplicated withdrawal Status: Acute (2) Marijuana dependence Status: Chronic (3) Cocaine dependence Status: Acute Qualifiers: Substance use status: uncomplicated Qualified Code(s): F14.20 - Cocaine dependence, uncomplicated (4) Diabetes 1.5, managed as type 1 Status: Chronic (5) History of asthma Status: Chronic - AMA Did Patient Leave Against Medical Advice: No
[2017-04-21] MEDS: PRENATAL VITAMINS W/ FOLIC ACID TABLET (FP) PO SCH (09:36)
[2017-04-21] MEDS: NICOTINE 21 MG/24 HOURS TOPICAL PATCH TD SCH (09:39)
[2017-04-21] MEDS: NICOTINE POLACRILEX 4 MG GUM BC PRN (09:41)
[2017-04-21] MEDS ORDERED: ESCITALOPRAM OXALATE 10 MG TABLET (FP) PO SCH (10:00)
[2017-04-21] MEDS: MAG HYDROX/AL HYDROX/SIMETH 30 ML UNIT-DOSE CUP PO PRN (10:32)
[2017-04-21] MEDS: hydrOXYzine PAMOATE 50 MG CAPSULE (FP) PO PRN (11:53)
[2017-04-21] MEDS ORDERED: INSULIN (NOVOLOG) ASPART 100 UNITS/ML 10ML VIAL ONE (11:55)
[2017-04-21 12:00] VITALS: BP 141/65; PULSE 81; TEMP 96.3
== END 2017-04-21 13:00 | disposition home or self-care (01) | DRG 774 ==
LOC: YASAS 13:50 → Y6N 16:28
PROVIDERS: ADMIT Internal Medicine; ATTEND Internal Medicine
PROC: HZ2ZZZZ Detoxification Services for Substance Abuse Treatment (ICD-10-PCS; principal; 2017-04-19)
DX: F10.230 Alcohol dependence with withdrawal, uncomplicated (principal); F14.20 Cocaine dependence, uncomplicated; F17.210 Nicotine dependence, cigarettes, uncomplicated; F41.8 Other specified anxiety disorders; F33.1 Major depressive disorder, recurrent, moderate; F19.24 Other psychoactive substance dependence with psychoactive substance-induced mood disorder; E10.9 Type 1 diabetes mellitus without complications; Z79.4 Long term (current) use of insulin; Z87.09 Personal history of other diseases of the respiratory system; B37.3 Candidiasis of vulva and vagina; Z91.5 Personal history of self-harm
CPT/HCPCS: 81003; 82962

== ENCOUNTER 2017-08-20 11:18 | Inpatient (IN) | payer OTHER ==
[2017-08-20 12:25] VITALS: BMI 23.4
--- NOTE | 2017-08-20 15:14 | HP ---
CIWA Score - CIWA Score Nausea/Vomitin-No Nausea/No Vomiting Muscle Tremors: 4-Moderate,w/Arms Extend Anxiety: 4-Mod. Anxious/Guarded Agitation: 4-Moderately Restless Paroxysmal Sweats: 1-Minimal Palms Moist Orientation: 0-Oriented Tacttile Disturbances: 0-None Auditory Disturbances: 0-None Visual Disturbances: 0-None Headache: 0-None Present CIWA-Ar Total Score: 13 Admission ROS S - HPI Chief Complaint: ALCOHOL WITHDRAWAL SX Allergies/Adverse Reactions: Allergies Allergy/AdvReac Type Severity Reaction Status Date / Time mustard Allergy Intermediate Hives Verified 08/20/17 12:58 shellfish derived Allergy Intermediate Hives Verified 08/20/17 12:58 No Known Drug Allergies Allergy Verified 08/20/17 12:58 History of Present Illness: 47 Y/O H/FEMALE WITH A HX OF ALCOHOL AND COCAINE DEPENDENCE SEEKING DETOX TX. PT HAS PREVIOUS TX EPISODES. Exam Limitations: No Limitations - Ebola screening Have you traveled outside of the country in the last 21 days: No Have you had contact with anyone from an Ebola affected area: No Have you been sick,other than usual withdrawal symptoms: No Do you have a fever: No - Review of Systems Constitutional: Chills, Loss of Appetite, Night Sweats, Changes in sleep, Unintentional Wgt. Loss EENT: reports: Blurred Vision (WEARS GLASSES), Tearing, Nose Congestion, Dental Problems (TETH EXTRACTIONS) Respiratory: reports: Shortness of Breath (HX ASTHMA), Wheezing Cardiac: reports: Chest Pain, Lightheadedness, Palpitations, Chest Tightness GI: reports: Constipated, Diarrhea, Nausea, Vomiting : reports: Burning (SOMETIMES), Dysuria, Discharge (SOMETIMES) Musculoskeletal: reports: Back Pain, Neck Pain (SOMETIMES) Integumentary: reports: No Symptoms Reported Neuro: reports: Headache, Numbness (HANDS), Tingling (TOES), Tremors, Unsteady Gait, Dizziness Endocrine: reports: No Symptoms Reported Hematology: reports: Anemia ("WHEN I WAS YOUNGER") Psychiatric: reports: Orientated x3, Anxious, Depressed Other Systems: Reviewed and Negative Patient History - Patient Medical History Hx Anemia: No Hx Asthma: Yes (MDI) Hx Chronic Obstructive Pulmonary Disease (COPD): No Hx Cancer: No Hx Cardiac Disorders: No Hx Congestive Heart Failure: No Hx Hypertension: No Hx Hypercholesterolemia: No Hx Pacemaker: No HX Cerebrovascular Accident: No Hx Seizures: No Hx Dementia: No Hx Diabetes: Yes (ON METFORMIN 500 MG BID) Hx Gastrointestinal Disorders: No Hx Liver Disease: No Hx Genitourinary Disorders: No Hx Sexually Transmitted Disorders: No (DENIES) Hx Renal Disease (ESRD): No Hx Thyroid Disease: No Hx Human Immunodeficiency Virus (HIV): No (NEGATIVE HX) Hx Hepatitis C: No Hx Depression: Yes (ON MED BUT FORGOT THE NAME) Hx Suicide Attempt: No (DENIES S/I) Hx Bipolar Disorder: No Hx Schizophrenia: No - Patient Surgical History Past Surgical History: Yes Hx Neurologic Surgery: No Hx Cataract Extraction: No Hx Cardiac Surgery: No Hx Lung Surgery: No Hx Breast Surgery: No Hx Breast Biopsy: No Hx Abdominal Surgery: No Hx Appendectomy: No Hx Cholecystectomy: No Hx Genitourinary Surgery: No Hx Section: Yes (x3) Hx Orthopedic Surgery: No Hx Hysterectomy: No Anesthesia Reaction: No - PPD History Previous Implant?: Yes Documented Results: Negative w/proof Implanted On Prior [facility] Admission?: Yes Date: 11/01/16 Results: 0 MM PPD to be Administered?: No - Reproductive History Patient is a Female of Child Bearing Age (11 -55 yrs old): Yes Last Menstrual Period: 08/10/17 Patient : No - Smoking Cessation Smoking history: Current every day smoker Have you smoked in the past 12 months: Yes Aproximately how many cigarettes per day: 10 If you are a former smoker, when did you quit?: NOVEMBER/2016 Cigars Per Day: 0 Hx Chewing Tobacco Use: No Initiated information on smoking cessation: Yes 'Breaking Loose' booklet given: 08/20/17 - Substance & Tx. History Hx Alcohol Use: Yes Substance Use Type: Alcohol, Cocaine, Marijuana Hx Substance Use Treatment: Yes (LAST [place] AT [facility]) - Substances Abused Alcohol Route: Oral Frequency: Daily Amount used: 1-2 PINTS OF VODKA OR RUM Age of first use: 17 Date of Last Use: 08/20/17 Cocaine Route: Smoking Frequency: Daily Amount used: 1 BAG Age of first use: 27 Date of Last Use: 08/18/17 Family Disease History - Family Disease History Family Disease History: Diabetes: Father (HTN,HYPERCHOLESTEROLEMIA), Mother (HTN ,HYPERCHOLESTEROLEMIA), Heart Disease: Father, Mother Admission Physical Exam [facility] - Vital Signs Vital Signs: Vital Signs - 24 hr 08/20/17 12:21 Temperature 97.9 F Pulse Rate 95 H Respiratory 20 Rate Blood Pressure 129/82 - Physical General Appearance: Yes: Moderate Distress, Irritable, Anxious HEENTM: Yes: EOMI, Normocephalic, [place], Pharynx Normal, Nasal Congestion, Rhinorrhea Respiratory: Yes: Chest Non-Tender, Lungs Clear, Normal Breath Sounds, No Respiratory Distress Neck: Yes: Supple, Trachea in good position Breast: Yes: Breast Exam Deferred Cardiology: Yes: Regular Rhythm, Regular Rate, S1, S2 Abdominal: Yes: Normal Bowel Sounds, Non Tender, Flat, Soft Genitourinary: Yes: Other (N/C) Back: Yes: Within Normal Limits Musculoskeletal: Yes: full range of Motion, Gait Steady Extremities: Yes: Normal Range of Motion, Non-Tender Neurological: Yes: solderer II-XII NML intact, Fully Oriented, Alert, Motor Strength 5/5 Integumentary: Yes: Dry, Warm Lymphatic: Yes: Within Normal Limits - Diagnostic (1) Alcohol dependence with uncomplicated withdrawal Current Visit: Yes Status: Acute (2) Cocaine dependence Current Visit: Yes Status: Acute Qualifiers: Substance use status: uncomplicated Qualified Code(s): F14.20 - Cocaine dependence, uncomplicated (3) History of asthma Current Visit: No Status: Chronic (4) Nicotine dependence Current Visit: Yes Status: Acute Qualifiers: Nicotine product type: cigarettes Substance use status: in withdrawal Qualified Code(s): F17.213 - Nicotine dependence, cigarettes, with withdrawal (5) Type II diabetes mellitus Current Visit: Yes Status: Chronic Qualifiers: Diabetes mellitus adjunct faculty for medical terminology insulin use: with adjunct faculty for medical terminology use Diabetes mellitus complication status: without complication Qualified Code(s): E11.9 - Type 2 diabetes mellitus without complications; Z79.4 - assisted (current) use of insulin; Z79.4 - termination clerk (current) use of insulin; Z79.4 - termination clerk ( current) use of insulin; Z79.4 - termination clerk (current) use of insulin Cleared for Admission [facility] - Detox or Rehab [facility] Level of Care: Medically Managed Detox Regimen/Protocol: Valium [facility] Breath Alcohol Content Breath Alcohol Content: 0 Urine Pregancy Test - Result Urine Test Results: Negative- NO Line Present Urine Drug Screen - Results Drug Screen Negative: No Urine Drug Screen Results: ANNITA-Cocaine, TCA-Tricyclic Antidepress
[2017-08-20] MEDS ORDERED: MAGNESIUM CITRATE 300 ML BOTTLE PO PRN (16:17)
[2017-08-20] MEDS ORDERED: MAG HYDROX/AL HYDROX/SIMETH 30 ML UNIT-DOSE CUP PO PRN (16:17)
[2017-08-20] MEDS ORDERED: guaiFENesin/D-METHORPHAN HB 10 ML UNIT-DOSE CUPS PO PRN (16:17)
[2017-08-20] MEDS ORDERED: ACETAMINOPHEN 325 MG TABLET (FP) PO PRN (16:17)
[2017-08-20] MEDS ORDERED: IBUPROFEN 400 MG TABLET (FP) PO PRN (16:17)
[2017-08-20] MEDS ORDERED: LOPERAMIDE HCL 2 MG CAPSULE PO PRN (16:17)
[2017-08-20] MEDS ORDERED: MENTHOL/PHENOL 1 EACH UD MM PRN (16:18)
[2017-08-20] MEDS ORDERED: P-EPHED 60MG/TRIPROLIDI 2.5MG TABLET PO PRN (16:18)
[2017-08-20] MEDS ORDERED: ALBUTEROL SO4 18 GM HFA INHALER IH PRN (16:20)
--- NOTE | 2017-08-20 16:22 | PN ---
S Progress Note Note: PT IS ON METFORMIN 500 MG PO BID AND BASAGLAR(LONG ACTING BASAL INSULIN ) 25 T0 30 UNITS HS PER MS FARIAS- HER HOME PHARMACIST VERIFICATION. BLOOD SUGAR ON ADMISSION IS 176 MG/DL WILL START METFORMIN 500 MG PO DAILY FROM 08/21/17 BASAGLAR 25 UNITS SC HS TONIGHT PLAN:RE-EVALUATE IF PT NEEDS METFORMIN BID REINSTATED. HOLD METFORMIN IF BLOOD SUGAR 200 OR LESS
[2017-08-20] MEDS ORDERED: diazePAM 5 MG TABLET PO ONE (16:30)
[2017-08-20] MEDS ORDERED: metFORMIN HCL 500 MG TABLET (FP) PO SCH ×2 (16:30)
[2017-08-20] MEDS: diazePAM 5 MG TABLET PO PRN (19:33)
[2017-08-20] MEDS ORDERED: MELATONIN 5 MG TABLETS PO PRN (22:00)
[2017-08-20] MEDS: diazePAM 5 MG TABLET PO SCH (22:31)
[2017-08-20] MEDS: THIAMINE HCL 100 MG TABLET (FP) PO SCH (22:31)
[2017-08-20] MEDS: INSULIN (LEVEMIR) 100 UNITS/ML UNITS SQ SCH (22:31)
[2017-08-20] MEDS: hydrOXYzine PAMOATE 50 MG CAPSULE (FP) PO PRN (22:36)
[2017-08-21] MEDS: diazePAM 5 MG TABLET PO PRN ×2 (02:57→10:27)
[2017-08-21] MEDS: diazePAM 5 MG TABLET PO SCH (05:38)
--- NOTE | 2017-08-21 09:22 | EKG ---
Test Reason : Blood Pressure : / mmHG Vent. Rate : 100 BPM Atrial Rate : 100 BPM P-R Int : 120 ms QRS Dur : 070 ms QT Int : 338 ms P-R-T Axes : 069 067 052 degrees QTc Int : 436 ms NORMAL SINUS RHYTHM NORMAL ECG WHEN COMPARED WITH ECG OF 16-APR-2017 23:06, NO SIGNIFICANT CHANGE WAS FOUND Confirmed by STEVE MAYES MD ([id number]) on 08/21/2017 9:22:20 AM Referred By: Confirmed By:STEVE MAYES MD
[2017-08-21] MEDS: metFORMIN HCL 500 MG TABLET (FP) PO SCH (09:37)
[2017-08-21 10:04] LABS: HEMATOCRIT 37.7 % (32.4-45.2); HEMOGLOBIN 12.6 GM/dL (10.7-15.3); MCH 32.8 pg (25.7-33.7); MCHC 33.5 g/dl (32.0-36.0); MEAN CELL VOLUME 97.9 fl (80-96); MEAN PLT VOLUME 9.6 fl (7.5-11.1); PLATELET COUNT 357 K/MM3 (134-434); RBC 3.85 M/mm3 (3.60-5.2); RDW 13.6 % (11.6-15.6); WHITE BLOOD COUNT 7.4 K/mm3 (4.0-10.0)
[2017-08-21] MEDS: PRENATAL VITAMINS W/ FOLIC ACID TABLET (FP) PO SCH (10:27)
[2017-08-21] MEDS: NICOTINE 14 MG/24 HOURS TOPICAL PATCH TD SCH (10:27)
[2017-08-21 10:31] LABS: ALK PHOS 135 U/L (45-117); ANION GAP 6 (8-16); BILIRUBIN,TOTAL 0.4 mg/dL (0.2-1.0); BLOOD UREA NITROGEN 20 mg/dL (7-18); CHLORIDE 103 mmol/L (98-107); CO2 30 mmol/L (21-32); GLUCOSE,RANDOM 126 mg/dL (74-106); POTASSIUM 4.2 mmol/L (3.5-5.1); SGOT/AST 17 U/L (15-37); SGPT/ALT 19 U/L (12-78); SODIUM 139 mmol/L (136-145); TOT PROT 7.8 g/dl (6.4-8.2)
[2017-08-21] MEDS ORDERED: chlordiazePOXIDE HCL 25 MG CAPSULE PO ONE (13:30)
--- NOTE | 2017-08-21 13:39 | PN ---
S CIWA - CIWA Score Nausea/Vomitin Muscle Tremors: 3 Anxiety: 3 Agitation: 2 Paroxysmal Sweats: 1-Minimal Palms Moist Orientation: 0-Oriented Tacttile Disturbances: 1-Very Mild Itch/Numbness Auditory Disturbances: 1-Very Mild Visual Disturbances: 0-None Headache: 2-Mild CIWA-Ar Total Score: 16 BHS Progress Note (SOAP) Subjective: ALERT,IRRITABLE,ANXIOUS,INTERRUPTED SLEEP,TREMOR,PAIN IN THE BODY Objective: 08/21/17 13:35 Vital Signs Temperature 97.9 F 08/21/17 09:25 Pulse Rate 93 H 08/21/17 09:25 Respiratory Rate 16 08/21/17 09:25 Blood Pressure 105/56 08/21/17 09:25 O2 Sat by Pulse Oximetry (%) EKG NSR,NRMAL ECG PROL Laboratory Last Values WBC 7.4 K/mm3 (4.0-10.0) 08/21/17 06:10 RBC 3.85 M/mm3 (3.60-5.2) 08/21/17 06:10 Hgb 12.6 GM/dL (10.7-15.3) 08/21/17 06:10 Hct 37.7 % (32.4-45.2) 08/21/17 06:10 MCV 97.9 fl (80-96) H 08/21/17 06:10 MCH 32.8 pg (25.7-33.7) 08/21/17 06:10 MCHC 33.5 g/dl (32.0-36.0) 08/21/17 06:10 RDW 13.6 % (11.6-15.6) 08/21/17 06:10 Plt Count 357 K/MM3 (134-434) D 08/21/17 06:10 MPV 9.6 fl (7.5-11.1) 08/21/17 06:10 Sodium 139 mmol/L (136-145) 08/21/17 06:10 Potassium 4.2 mmol/L (3.5-5.1) 08/21/17 06:10 Chloride 103 mmol/L (98-107) 08/21/17 06:10 Carbon Dioxide 30 mmol/L (21-32) 08/21/17 06:10 Anion Gap 6 (8-16) L 08/21/17 06:10 BUN 20 mg/dL (7-18) H 08/21/17 06:10 Creatinine 1.0 mg/dL (0.55-1.02) 08/21/17 06:10 Creat Clearance w eGFR 59.18 (>60) 08/21/17 06:10 POC Glucometer 115 UNITS (80-120) 08/21/17 11:59 Random Glucose 126 mg/dL (74-106) H 08/21/17 06:10 Calcium 9.0 mg/dL (8.5-10.1) 08/21/17 06:10 Total Bilirubin 0.4 mg/dL (0.2-1.0) D 08/21/17 06:10 AST 17 U/L (15-37) 08/21/17 06:10 ALT 19 U/L (12-78) 08/21/17 06:10 Alkaline Phosphatase 135 U/L (45-117) H 08/21/17 06:10 Total Protein 7.8 g/dl (6.4-8.2) 08/21/17 06:10 Albumin 4.0 g/dl (3.4-5.0) 08/21/17 06:10 RPR Titer Nonreactive (NONREACTIVE) 08/21/17 06:10 HIV 1&2 Antibody Screen Negative 08/20/17 13:20 HIV P24 Antigen Negative 08/20/17 13:20 GRACIELA QT 338/436 NO CHEST PAIN,NO SOB,NO DIZZINESS Assessment: 08/21/17 13:40 WITHDRAWAL SYMPTOM Plan: CONTINUE DETOX,REGIMENS CHANGED TO LIBRIUM INSTEAD OF VALIUM
[2017-08-21] MEDS: MAGNESIUM HYDROX 2400MG/30ML ORAL SUSPENSION 30 ML CUP PO PRN (15:03)
--- NOTE | 2017-08-21 16:16 | CONSULT ---
[facility] Psychiatric Consult - Data Date of interview: 08/21/17 Admission source: [facility] Identifying data: Readmission to [facility] for this 46 y/o female seeking detox treatment on for alcohol,marihuana and cocaine dependence.Patient is ,a mother of one (three were claimed at a previous encounter with this global technical writer),domiciled,unemployed and supported on Public Assistance. Substance Abuse History: Smoking history: Current every day smoker. Have you smoked in the past 12 months: Yes. Aproximately how many cigarettes per day: 10. If you are a former smoker, when did you quit?: NOVEMBER/2016. Cigars Per Day: 0. Hx Chewing Tobacco Use: No. Initiated information on smoking cessation : Yes. 'Breaking Loose' booklet given: 08/20/17. - Substance & Tx. History. Hx Alcohol Use: Yes. Substance Use Type: Alcohol, Cocaine, Marijuana. Hx Substance Use Treatment: Yes (LAST TX AT [facility]). - Substances Abused. Alcohol. Route: Oral. Frequency: Daily. Amount used: 1-2 PINTS OF VODKA OR RUM. Age of first use: 17. Date of Last Use: 08/20/17. Cocaine. Route: Smoking. Frequency: Daily. Amount used: 1 BAG. Age of first use: 27. Date of Last Use: 08/18/17 Medical History: Diabetes mellitus,bronchial asthma and a history of three sections. Psychiatric History: Patient denies history of psychiatric hospitalizations.In this interview, the patient declares that she sees a " therapist " at a mental health clinic in the [place].Name of facility not recalled by patient. " They prescribe me gabapentin and benadryl to sleep ".Records from [facility] yield evidence of previous trials of escitalopram and quetiapine.It appears that this patient elects to be non-adherent to these medications as soon as discharged from [facility].Ms Mcmullen denies history of suicide attempts. Physical/Sexual Abuse/Trauma History: Patient denies. Additional Comment: Urine Drug Screen Results: ANNITA-Cocaine, TCA-Tricyclic Antidepressant.Noted. Mental Status Exam - Mental Status Exam Alert and Oriented to: Time, Place, Person Cognitive Function: Good Patient Appearance: Well Groomed Mood: Hopeful, Euthymic Affect: Appropriate, Normal Range Patient Behavior: Fatigued, Appropriate, Cooperative Speech Pattern: Clear, Appropriate Voice Loudness: Normal Thought Process: Intact, Goal Oriented Thought Disorder: Not Present Hallucinations: Denies Suicidal Ideation: Denies Homicidal Ideation: Denies Insight/Judgement: Poor Sleep: Poorly, Difficulty falling asleep Appetite: Good Muscle strength/Tone: Normal Gait/Station: Normal Psychiatric Findings - Problem List ([place] 1, 2,3) (1) Alcohol dependence with uncomplicated withdrawal Current Visit: Yes Status: Acute (2) Cocaine dependence Current Visit: Yes Status: Acute Qualifiers: Substance use status: uncomplicated Qualified Code(s): F14.20 - Cocaine dependence, uncomplicated (3) Nicotine dependence Current Visit: Yes Status: Acute Qualifiers: Nicotine product type: cigarettes Substance use status: in withdrawal Qualified Code(s): F17.213 - Nicotine dependence, cigarettes, with withdrawal (4) Substance induced mood disorder Current Visit: Yes Status: Chronic (5) Insomnia Current Visit: Yes Status: Chronic - Initial Treatment Plan Initial Treatment Plan: Psychoeducation.Records reviewed.Sleep hygiene.Detoxification in progress.Patient declines to resume seroquel or lexapro.She specifically requested benadryl at bedtime.Made aware of side effects/benefits.Observation.
[2017-08-21 16:55] LABS: URINE APPEARANCE CLEAR; URINE BILIRUBIN NEGATIVE (<2.0 mg/dL); URINE COLOR LTYELLOW; URINE GLUCOSE (UA) 1+ (NEGATIVE); URINE KETONE NEGATIVE (NEGATIVE); URINE LEUK ESTERASE NEGATIVE (NEGATIVE); URINE NITRITE NEGATIVE (NEGATIVE); URINE PROTEIN NEGATIVE (NEGATIVE); URINE UROBILINOGEN NEGATIVE mg/dL (0.2-1.0)
[2017-08-21] MEDS: chlordiazePOXIDE HCL 25 MG CAPSULE PO SCH ×2 (17:08→22:01)
[2017-08-21] MEDS: chlordiazePOXIDE HCL 25 MG CAPSULE PO PRN (20:24)
[2017-08-21] MEDS: THIAMINE HCL 100 MG TABLET (FP) PO SCH (22:01)
[2017-08-21] MEDS: INSULIN (LEVEMIR) 100 UNITS/ML UNITS SQ SCH (22:01)
[2017-08-21] MEDS: hydrOXYzine PAMOATE 50 MG CAPSULE (FP) PO PRN (23:06)
[2017-08-22] MEDS: chlordiazePOXIDE HCL 25 MG CAPSULE PO PRN ×2 (03:06→20:25)
[2017-08-22] MEDS: chlordiazePOXIDE HCL 25 MG CAPSULE PO SCH ×5 (05:33→22:11)
[2017-08-22] MEDS ORDERED: diazePAM 5 MG TABLET PO SCH (10:00)
[2017-08-22] MEDS: PRENATAL VITAMINS W/ FOLIC ACID TABLET (FP) PO SCH (11:08)
[2017-08-22] MEDS: hydrOXYzine PAMOATE 50 MG CAPSULE (FP) PO PRN ×2 (11:08→22:13)
[2017-08-22] MEDS: NICOTINE 14 MG/24 HOURS TOPICAL PATCH TD SCH (11:45)
[2017-08-22] MEDS: NICOTINE POLACRILEX 2 MG GUM BUC PRN (11:47)
--- NOTE | 2017-08-22 14:37 | PN ---
S CIWA - CIWA Score Nausea/Vomitin Muscle Tremors: 2 Anxiety: 4-Mod. Anxious/Guarded Agitation: 3 Paroxysmal Sweats: 2 Orientation: 0-Oriented Tacttile Disturbances: 0-None Auditory Disturbances: 0-None Visual Disturbances: 0-None Headache: 3-Moderate CIWA-Ar Total Score: 16 BHS Progress Note (SOAP) Subjective: Headache, anxious, interrupted sleep. Patient requesting to see psychiatrist for insomnia. Objective: 08/22/17 14:36 Last Vital Signs Temp Pulse Resp BP Pulse Ox 99.7 F H 104 H 18 109/69 08/22/17 14:00 08/22/17 14:00 08/22/17 14:00 08/22/17 14:00 Laboratory Tests 08/20/17 08/21/17 08/21/17 13:20 05:37 06:10 WBC 7.4 RBC 3.85 Hgb 12.6 Hct 37.7 MCV 97.9 H MCH 32.8 MCHC 33.5 RDW 13.6 Plt Count 357 D MPV 9.6 Sodium Potassium Chloride Carbon Dioxide Anion Gap BUN Creatinine Creat Clearance w eGFR POC Glucometer 70 Random Glucose Calcium Total Bilirubin AST ALT Alkaline Phosphatase Total Protein Albumin Urine Color Urine Appearance Urine pH Ur Specific Tilly Urine Protein Urine Glucose (UA) Urine Ketones Urine Blood Urine Nitrite Urine Bilirubin Urine Urobilinogen Ur Leukocyte Esterase RPR Titer HIV 1&2 Antibody Screen Negative HIV P24 Antigen Negative 08/21/17 08/21/17 08/21/17 06:10 06:10 09:15 WBC RBC Hgb Hct MCV MCH MCHC RDW Plt Count MPV Sodium 139 Potassium 4.2 Chloride 103 Carbon Dioxide 30 Anion Gap 6 L BUN 20 H Creatinine 1.0 Creat Clearance w eGFR 59.18 POC Glucometer Random Glucose 126 H Calcium 9.0 Total Bilirubin 0.4 D AST 17 ALT 19 Alkaline Phosphatase 135 H Total Protein 7.8 Albumin 4.0 Urine Color Ltyellow Urine Appearance Clear Urine pH 5.0 D Ur Specific Tilly 1.018 Urine Protein Negative Urine Glucose (UA) 1+ H Urine Ketones Negative Urine Blood Negative Urine Nitrite Negative Urine Bilirubin Negative Urine Urobilinogen Negative Ur Leukocyte Esterase Negative RPR Titer Nonreactive HIV 1&2 Antibody Screen HIV P24 Antigen 08/21/17 08/21/17 08/21/17 11:59 16:27 21:58 WBC RBC Hgb Hct MCV MCH MCHC RDW Plt Count MPV Sodium Potassium Chloride Carbon Dioxide Anion Gap BUN Creatinine Creat Clearance w eGFR POC Glucometer 115 108 250 Random Glucose Calcium Total Bilirubin AST ALT Alkaline Phosphatase Total Protein Albumin Urine Color Urine Appearance Urine pH Ur Specific Tilly Urine Protein Urine Glucose (UA) Urine Ketones Urine Blood Urine Nitrite Urine Bilirubin Urine Urobilinogen Ur Leukocyte Esterase RPR Titer HIV 1&2 Antibody Screen HIV P24 Antigen 08/22/17 08/22/17 05:32 11:49 WBC RBC Hgb Hct MCV MCH MCHC RDW Plt Count MPV Sodium Potassium Chloride Carbon Dioxide Anion Gap BUN Creatinine Creat Clearance w eGFR POC Glucometer 69 179 Random Glucose Calcium Total Bilirubin AST ALT Alkaline Phosphatase Total Protein Albumin Urine Color Urine Appearance Urine pH Ur Specific Tilly Urine Protein Urine Glucose (UA) Urine Ketones Urine Blood Urine Nitrite Urine Bilirubin Urine Urobilinogen Ur Leukocyte Esterase RPR Titer HIV 1&2 Antibody Screen HIV P24 Antigen Labs noted Assessment: 08/22/17 14:36 Withdrawal symptoms Plan: Continue detox Encouraged PO hydration Psychiatrist consult for insomnia
[2017-08-22] MEDS: MAGNESIUM HYDROX 2400MG/30ML ORAL SUSPENSION 30 ML CUP PO PRN (16:38)
[2017-08-22 18:17] LABS: URINE APPEARANCE CLEAR; URINE BILIRUBIN NEGATIVE (<2.0 mg/dL); URINE COLOR LTYELLOW; URINE GLUCOSE (UA) NEGATIVE (NEGATIVE); URINE KETONE NEGATIVE (NEGATIVE); URINE LEUK ESTERASE NEGATIVE (NEGATIVE); URINE NITRITE NEGATIVE (NEGATIVE); URINE PROTEIN NEGATIVE (NEGATIVE); URINE UROBILINOGEN NEGATIVE mg/dL (0.2-1.0)
[2017-08-22] MEDS: THIAMINE HCL 100 MG TABLET (FP) PO SCH (22:14)
[2017-08-22] MEDS: INSULIN (LEVEMIR) 100 UNITS/ML UNITS SQ SCH (22:14)
[2017-08-23] MEDS: hydrOXYzine PAMOATE 50 MG CAPSULE (FP) PO PRN ×2 (03:13→06:28)
[2017-08-23] MEDS: metFORMIN HCL 500 MG TABLET (FP) PO SCH (06:28)
[2017-08-23] MEDS: chlordiazePOXIDE HCL 25 MG CAPSULE PO SCH ×2 (06:28→10:48)
[2017-08-23] MEDS ORDERED: HALOPERIDOL 1 MG TABLET (FP) PO PRN (09:42)
--- NOTE | 2017-08-23 09:50 | PN ---
Psychiatric Progress Note Vital Signs: Vital Signs Period Temp Pulse Resp BP Sys/Mcdermott Pulse Ox Last 24 Hr 96.8 F-99.7 F 87-104 18-19 91-139/59-82 Date of Session: 08/23/17 Chief Complaint:: Anxiety, insomnia HPI: Patient reports not sleeping nwell, reports amxietya dnagitation Current Medications: Active Medications Generic Name Dose Route Start Last Admin Trade Name Freq PRN Reason Stop Dose Admin Acetaminophen 650 mg 08/20/17 16:17 08/21/17 19:16 Tylenol - PO 650 mg Q4H PRN Administration FEVER Al Hydroxide/Mg Hydroxide 30 ml 08/20/17 16:17 Mylanta Oral Suspension - PO Q6H PRN DYSPEPSIA Albuterol Sulfate 2 puff 08/20/17 16:20 Ventolin Hfa Inhaler - IH Q4H PRN SHORTNESS OF BREATH Chlordiazepoxide HCl 25 mg 08/22/17 17:00 08/23/17 06:28 Librium - PO 08/23/17 11:01 25 mg [id number] BETO Administration Chlordiazepoxide HCl 15 mg 08/23/17 17:00 Librium - PO 08/24/17 11:01 [id number] BETO Chlordiazepoxide HCl 25 mg 08/21/17 12:55 08/22/17 20:25 Librium - PO 08/24/17 12:54 25 mg Q4H PRN Administration WITHDRAWAL(CONT SUBST) Chlordiazepoxide HCl 10 mg 08/24/17 17:00 Librium - PO 08/25/17 11:01 [id number] BETO Eucalyptus/Menthol/Phenol/Sorbitol 1 each 08/20/17 16:18 Cepastat Lozenge - MM Q4H PRN SORE THROAT Guaifenesin 10 ml 08/20/17 16:17 Robitussin Dm - PO Q6H PRN COUGH Haloperidol 1 mg 08/23/17 09:42 Haldol - PO Q4HWA PRN AGITATION Hydroxyzine Pamoate 50 mg 08/20/17 16:17 08/23/17 06:28 Vistaril - PO 50 mg Q4H PRN Administration AGITATION Ibuprofen 400 mg 08/20/17 16:17 08/23/17 06:55 Motrin - PO 400 mg Q6H PRN Administration PAIN LEVEL 4-6 Insulin Detemir 25 units 08/20/17 22:00 08/22/17 22:14 Levemir Vial SQ Not Given [facility] Loperamide HCl 4 mg 08/20/17 16:17 Imodium - PO Q6H PRN DIARRHEA Magnesium Citrate 300 ml 08/20/17 16:17 Citroma - PO Q48H PRN CONSTIPATION Magnesium Hydroxide 30 ml 08/20/17 16:18 08/22/17 16:38 Milk Of Magnesia - PO 30 ml DAILY PRN Administration CONSTIPATION Melatonin 5 mg 08/20/17 22:00 08/20/17 22:35 Melatonin PO 5 mg HS PRN Administration INSOMNIA Metformin HCl 500 mg 08/21/17 07:00 08/23/17 06:28 Glucophage - PO 500 mg DAILY@0700 BETO Administration Mirtazapine 15 mg 08/23/17 22:00 Remeron - PO HS [facility] Nicotine 14 mg 08/21/17 10:00 08/22/17 11:45 Nicoderm Patch - TD Not Given DAILY [facility] Nicotine Polacrilex 2 mg 08/20/17 16:18 08/22/17 11:47 Nicorette Gum - BUC 2 mg Q2H PRN Administration NICOTINE REPLACEMENT RX Multivit/Folic Acid/Iron 1 tab 08/21/17 10:00 08/22/17 11:08 Vitamins (Sjr) - PO 1 tab DAILY [facility] Administration Pseudoephedrine/Triprolidine 1 combo 08/20/17 16:18 Actifed - PO TID PRN NASAL CONGESTION Quetiapine Fumarate 100 mg 08/23/17 22:00 Seroquel - PO HS [facility] Quetiapine Fumarate 100 mg 08/23/17 22:00 Seroquel - PO HS BETO Thiamine HCl 100 mg 08/20/17 22:00 08/22/17 22:14 Vitamin B1 - PO Not Given [facility] Medication(s) Change(s): Seroquel 100mg po qhs. Haldol 1mg po prn q4 for anxiety Mental Status Exam - Mental Status Exam Alert and Oriented to: Person Cognitive Function: Fair Patient Appearance: Unkempt Mood: Sad Affect: Flat Patient Behavior: Guarded Speech Pattern: Appropriate Voice Loudness: Mildly Loud Thought Process: Goal Oriented Thought Disorder: Being Controlled Hallucinations: Denies Suicidal Ideation: Denies Homicidal Ideation: Denies Insight/Judgement: Fair Sleep: Difficulty falling asleep Appetite: Fair Muscle strength/Tone: Normal Gait/Station: Normal Additional Comments: Seroquel 100mg po qhs. Haldol 1mg po prn q4 for agitation Psychiatric Treatment Plan - Problem List (1) Alcohol dependence with uncomplicated withdrawal Current Visit: Yes (2) Substance induced mood disorder Current Visit: Yes (3) Cocaine dependence Current Visit: Yes Qualifiers: Substance use status: uncomplicated Qualified Code(s): F14.20 - Cocaine dependence, uncomplicated (4) MDD (major depressive disorder) Current Visit: No (5) Cocaine abuse without complication Current Visit: No (6) Marijuana dependence Current Visit: No Initial treatment plan: Seroquel 100mg po qhs. Haldol 1mg po prn q4 for agitation. Remeron 15mg po qhs
--- NOTE | 2017-08-23 09:59 | PN ---
S Progress Note (SOAP) Subjective: ALERT,IRRITABLE,ANXIOUS,INTERRUPTED SLEEP, Objective: 08/23/17 09:58 Vital Signs Temperature 96.8 F L 08/23/17 07:14 Pulse Rate 87 08/23/17 07:14 Respiratory Rate 18 08/23/17 07:14 Blood Pressure 91/59 08/23/17 07:14 O2 Sat by Pulse Oximetry (%) Assessment: 08/23/17 09:58 WITHDRAWAL SYMPTOM Plan: CONTINUE DETOX,PSYCHIATRIC EVALUATION,DISCHARGE IN AM
[2017-08-23] MEDS: PRENATAL VITAMINS W/ FOLIC ACID TABLET (FP) PO SCH (10:48)
[2017-08-23] MEDS: NICOTINE 14 MG/24 HOURS TOPICAL PATCH TD SCH (10:50)
[2017-08-23] MEDS: NICOTINE POLACRILEX 2 MG GUM BUC PRN (10:51)
--- NOTE | 2017-08-23 13:43 | PN ---
[facility] Progress Note Note: PATIENT IS STABLE FOR DISCHARGE FOR HOUSING ISSUE,DISCHARGE TODAY,FOLLOW UP WITH AFTER CARE PROGRAM ARRANGEMENT
--- NOTE | 2017-08-23 13:50 | DS ---
[facility] Detox Discharge Summary Admission Date: 08/20/17 Discharge Date: 08/23/17 - History Present History: Alcohol Dependence, Cocaine Dependence Additional Comments: PATIENT IS STABLE FOR DISCHARGE TODAY,FOLLOW UP WITH AFTER CARE PROGRAM ARRANGEMENT Pertinent Past History: TYPE 2 DM - Physical Exam Results Vital Signs: Vital Signs Temperature 95.1 F L 08/23/17 10:00 Pulse Rate 102 H 08/23/17 10:00 Respiratory Rate 16 08/23/17 10:00 Blood Pressure 111/64 08/23/17 10:00 O2 Sat by Pulse Oximetry (%) Pertinent Admission Physical Exam Findings: WITHDRAWAL SYMPTOM AND SIGNS Vital Signs Temperature 95.1 F L 08/23/17 10:00 Pulse Rate 102 H 08/23/17 10:00 Respiratory Rate 16 08/23/17 10:00 Blood Pressure 111/64 08/23/17 10:00 O2 Sat by Pulse Oximetry (%) Laboratory Last Values WBC 7.4 K/mm3 (4.0-10.0) 08/21/17 06:10 RBC 3.85 M/mm3 (3.60-5.2) 08/21/17 06:10 Hgb 12.6 GM/dL (10.7-15.3) 08/21/17 06:10 Hct 37.7 % (32.4-45.2) 08/21/17 06:10 MCV 97.9 fl (80-96) H 08/21/17 06:10 MCH 32.8 pg (25.7-33.7) 08/21/17 06:10 MCHC 33.5 g/dl (32.0-36.0) 08/21/17 06:10 RDW 13.6 % (11.6-15.6) 08/21/17 06:10 Plt Count 357 K/MM3 (134-434) D 08/21/17 06:10 MPV 9.6 fl (7.5-11.1) 08/21/17 06:10 Sodium 139 mmol/L (136-145) 08/21/17 06:10 Potassium 4.2 mmol/L (3.5-5.1) 08/21/17 06:10 Chloride 103 mmol/L (98-107) 08/21/17 06:10 Carbon Dioxide 30 mmol/L (21-32) 08/21/17 06:10 Anion Gap 6 (8-16) L 08/21/17 06:10 BUN 20 mg/dL (7-18) H 08/21/17 06:10 Creatinine 1.0 mg/dL (0.55-1.02) 08/21/17 06:10 Creat Clearance w eGFR 59.18 (>60) 08/21/17 06:10 POC Glucometer 206 UNITS (80-120) 08/23/17 06:03 Random Glucose 126 mg/dL (74-106) H 08/21/17 06:10 Calcium 9.0 mg/dL (8.5-10.1) 08/21/17 06:10 Total Bilirubin 0.4 mg/dL (0.2-1.0) D 08/21/17 06:10 AST 17 U/L (15-37) 08/21/17 06:10 ALT 19 U/L (12-78) 08/21/17 06:10 Alkaline Phosphatase 135 U/L (45-117) H 08/21/17 06:10 Total Protein 7.8 g/dl (6.4-8.2) 08/21/17 06:10 Albumin 4.0 g/dl (3.4-5.0) 08/21/17 06:10 Urine Color Ltyellow 08/22/17 14:00 Urine Appearance Clear 08/22/17 14:00 Urine pH 7.0 (5.0-8.0) D 08/22/17 14:00 Ur Specific [place] 1.012 (1.001-1.035) 08/22/17 14:00 Urine Protein Negative (NEGATIVE) 08/22/17 14:00 Urine Glucose (UA) Negative (NEGATIVE) 08/22/17 14:00 Urine Ketones Negative (NEGATIVE) 08/22/17 14:00 Urine Blood Negative (NEGATIVE) 08/22/17 14:00 Urine Nitrite Negative (NEGATIVE) 08/22/17 14:00 Urine Bilirubin Negative (<2.0 mg/dL) 08/22/17 14:00 Urine Urobilinogen Negative mg/dL (0.2-1.0) 08/22/17 14:00 Ur Leukocyte Esterase Negative (NEGATIVE) 08/22/17 14:00 RPR Titer Nonreactive (NONREACTIVE) 08/21/17 06:10 HIV 1&2 Antibody Screen Negative 08/20/17 13:20 HIV P24 Antigen Negative 08/20/17 13:20 - Treatment Hospital Course: Detox Protocol Followed, Detoxed Safely, Responded well, Discharged Condition Good Patient has Accepted a Rehab Referral to: [facility]CL[facility]ED - Medication Discharge Medications: Ambulatory Orders Escitalopram Oxalate [Lexapro -] 10 mg PO DAILY #30 tablet 06/15/16 Quetiapine Fumarate [Seroquel -] 50 mg PO HS #30 tablet 04/17/17 Albuterol Sulfate Inhaler - [Ventolin HFA Inhaler -] 2 inh IH Q4H PRN #1 inhaler 04/21/17 metFORMIN HCL [Glucophage -] 500 mg PO BIDAC #90 tablet 04/21/17 Insulin Glargine,Hum.rec.anlog [Lantus Solostar PEN -] 25 units SQ HS 08/20/17 Mirtazapine [Remeron -] 15 mg PO HS #30 tablet 08/23/17 Quetiapine Fumarate [Seroquel -] 100 mg PO HS #30 tablet 08/23/17 - Diagnosis (1) Alcohol dependence with uncomplicated withdrawal Current Visit: Yes Status: Acute (2) Cocaine dependence Current Visit: Yes Status: Chronic Qualifiers: Substance use status: uncomplicated Qualified Code(s): F14.20 - Cocaine dependence, uncomplicated (3) Nicotine dependence Current Visit: Yes Status: Chronic Qualifiers: Nicotine product type: cigarettes Substance use status: in withdrawal Qualified Code(s): F17.213 - Nicotine dependence, cigarettes, with withdrawal (4) Type II diabetes mellitus Current Visit: Yes Status: Chronic Qualifiers: Diabetes mellitus longwall foreman insulin use: with assisted use Diabetes mellitus complication status: without complication Qualified Code(s): E11.9 - Type 2 diabetes mellitus without complications; Z79.4 - exterminator termite (current) use of insulin; Z79.4 - [facility] (current) use of insulin; Z79.4 - exterminator termite ( current) use of insulin; Z79.4 - [facility] (current) use of insulin - AMA Did Patient Leave Against Medical Advice: No
[2017-08-23] MEDS: chlordiazePOXIDE HCL 25 MG CAPSULE PO PRN (14:10)
[2017-08-23 14:24] VITALS: BP 125/82; PULSE 113; TEMP 97.3
[2017-08-23] MEDS ORDERED: chlordiazePOXIDE 5 MG CAPSULE PO SCH (17:00)
[2017-08-23] MEDS ORDERED: QUEtiapine FUMARATE 100 MG TABLET (FP) PO SCH ×2 (22:00)
[2017-08-23] MEDS ORDERED: MIRTAZAPINE 15 MG TABLET (FP) PO SCH (22:00)
[2017-08-24] MEDS ORDERED: diazePAM 5 MG TABLET PO SCH (10:00)
[2017-08-24] MEDS ORDERED: chlordiazePOXIDE HCL 10 MG CAPSULE PO SCH (17:00)
== END 2017-08-23 14:19 | disposition home or self-care (01) | DRG 774 ==
LOC: YASAS 11:18 → Y6N 13:21
PROVIDERS: ADMIT Surgery; ATTEND Surgery
PROC: HZ2ZZZZ Detoxification Services for Substance Abuse Treatment (ICD-10-PCS; principal; 2017-08-20)
DX: F10.230 Alcohol dependence with withdrawal, uncomplicated (principal); F14.20 Cocaine dependence, uncomplicated; F12.20 Cannabis dependence, uncomplicated; F17.210 Nicotine dependence, cigarettes, uncomplicated; F33.9 Major depressive disorder, recurrent, unspecified; F19.24 Other psychoactive substance dependence with psychoactive substance-induced mood disorder; E11.9 Type 2 diabetes mellitus without complications; Z79.4 Long term (current) use of insulin; Z79.84 Long term (current) use of oral hypoglycemic drugs; G47.00 Insomnia, unspecified; J45.909 Unspecified asthma, uncomplicated
CPT/HCPCS: 36415; 80053; 81003; 82962; 85027; 86593; 87389; 93005; 93010

== ENCOUNTER 2017-12-24 12:09 | Inpatient (IN) | payer OTHER ==
[2017-12-24 13:05] VITALS: BMI 23.4
--- NOTE | 2017-12-24 20:18 | HP ---
CIWA Score - CIWA Score Nausea/Vomitin Muscle Tremors: 4-Moderate,w/Arms Extend Anxiety: 3 Agitation: 2 Paroxysmal Sweats: 1-Minimal Palms Moist Orientation: 0-Oriented Tacttile Disturbances: 0-None Auditory Disturbances: 0-None Visual Disturbances: 0-None Headache: 3-Moderate CIWA-Ar Total Score: 16 Admission ROS S - HPI Chief Complaint: Alcohol withdrawal symptoms Allergies/Adverse Reactions: Allergies Allergy/AdvReac Type Severity Reaction Status Date / Time mustard Allergy Intermediate Hives Verified 12/24/17 17:35 shellfish derived Allergy Intermediate Hives Verified 12/24/17 17:35 No Known Drug Allergies Allergy Verified 12/24/17 17:35 History of Present Illness: 47 years old female with a long history of alcohol dependence is seeking admission to detox. Patient has been in previous detox and reports insignificant period of sobriety. She has medical history of type 2 DM, asthma , depression and anxiety. She denies suicide attempt and suicidal ideation at this time. Exam Limitations: No Limitations - Ebola screening Have you traveled outside of the country in the last 21 days: No Have you had contact with anyone from an Ebola affected area: No Have you been sick,other than usual withdrawal symptoms: No Do you have a fever: No - Review of Systems Constitutional: Chills, Loss of Appetite, Malaise, Changes in sleep EENT: reports: No Symptoms Reported Respiratory: reports: No Symptoms reported Cardiac: reports: No Symptoms Reported GI: reports: No Symptoms Reported : reports: No Symptoms Reported Musculoskeletal: reports: Muscle Pain Integumentary: reports: Dryness Neuro: reports: Tremors Endocrine: reports: No Symptoms Reported Hematology: reports: No Symptoms Reported Psychiatric: reports: Anxious, Depressed Other Systems: Reviewed and Negative Patient History - Patient Medical History Hx Anemia: No Hx Asthma: Yes (MDI) Hx Chronic Obstructive Pulmonary Disease (COPD): No Hx Cancer: No Hx Cardiac Disorders: No Hx Congestive Heart Failure: No Hx Hypertension: No Hx Hypercholesterolemia: No Hx Pacemaker: No HX Cerebrovascular Accident: No Hx Seizures: No Hx Dementia: No Hx Diabetes: Yes (ON METFORMIN 500 MG BID AND LANTUS 25MG AT BEDTIME) Hx Gastrointestinal Disorders: No Hx Liver Disease: No Hx Genitourinary Disorders: No Hx Sexually Transmitted Disorders: No (DENIES) Hx Renal Disease (ESRD): No Hx Thyroid Disease: No Hx Human Immunodeficiency Virus (HIV): No (NEGATIVE HX last 08/27) Hx Hepatitis C: No Hx Depression: Yes (ON MED BUT FORGOT THE NAME) Hx Suicide Attempt: No (DENIES SUICIDAL ATTEMPTSUICIDAL IDEATION) Hx Bipolar Disorder: No Hx Schizophrenia: No - Patient Surgical History Past Surgical History: Yes Hx Neurologic Surgery: No Hx Cataract Extraction: No Hx Cardiac Surgery: No Hx Lung Surgery: No Hx Breast Surgery: No Hx Breast Biopsy: No Hx Abdominal Surgery: No Hx Appendectomy: No Hx Cholecystectomy: No Hx Genitourinary Surgery: No Hx Section: Yes (x3 last 16 years ago) Hx Orthopedic Surgery: No Hx Hysterectomy: No Anesthesia Reaction: No - PPD History Previous Implant?: No Date: 11/01/16 Results: 0 MM PPD to be Administered?: Yes - Reproductive History Last Menstrual Period: 10/11/17 - Smoking Cessation Smoking history: Current every day smoker Have you smoked in the past 12 months: Yes Aproximately how many cigarettes per day: 10 If you are a former smoker, when did you quit?: NOVEMBER/2016 Cigars Per Day: 0 Hx Chewing Tobacco Use: No Initiated information on smoking cessation: Yes 'Breaking Loose' booklet given: 12/24/17 - Substance & Tx. History Hx Alcohol Use: Yes Substance Use Type: Marijuana Hx Substance Use Treatment: Yes ([facility]) - Substances Abused Alcohol Route: Oral Frequency: Daily Amount used: 2 PINTS Age of first use: 16 Date of Last Use: 12/24/17 Family Disease History - Family Disease History Family Disease History: Diabetes: Father (HTN,HYPERCHOLESTEROLEMIA), Mother (HTN ,HYPERCHOLESTEROLEMIA), Heart Disease: Father, Mother Admission Physical Exam [facility] - Vital Signs Vital Signs: Vital Signs - 24 hr 12/24/17 12:59 Temperature 97.2 F L Pulse Rate 117 H Respiratory 18 Rate Blood Pressure 127/86 - Physical General Appearance: Yes: Moderate Distress, Alcohol on Breath, Thin, Tremorous, Irritable, Sweating, Anxious HEENTM: Yes: EOMI, Normocephalic, Normal Voice, [place] Respiratory: Yes: Lungs Clear, Normal Breath Sounds, No Respiratory Distress Neck: Yes: Supple Breast: Yes: Breast Exam Deferred Cardiology: Yes: Tachycardia Abdominal: Yes: Normal Bowel Sounds, Soft Genitourinary: Yes: Within Normal Limits Back: Yes: Normal Inspection Musculoskeletal: Yes: full range of Motion Extremities: Yes: Tremors Neurological: Yes: jackscrew worker II-XII NML intact, Alert Integumentary: Yes: Warm Lymphatic: Yes: Within Normal Limits - Diagnostic (1) Type 2 DM mild nonproliferative retinopathy, macular edema, uncontrol Current Visit: Yes Status: Chronic (2) Asthma Current Visit: Yes Status: Chronic (3) Alcohol dependence with uncomplicated withdrawal Current Visit: Yes Status: Chronic (4) Nicotine dependence Current Visit: Yes Status: Acute Qualifiers: Nicotine product type: cigarettes Substance use status: in withdrawal Qualified Code(s): F17.213 - Nicotine dependence, cigarettes, with withdrawal (5) Anxiety and depression Current Visit: Yes Status: Chronic BHS Breath Alcohol Content Breath Alcohol Content: 0 Urine Pregancy Test - Result Urine Test Results: Negative- NO Line Present Urine Drug Screen - Results Drug Screen Negative: No Urine Drug Screen Results: THC-Marijuana
[2017-12-24] MEDS ORDERED: ACETAMINOPHEN 325 MG TABLET (FP) PO PRN (20:26)
[2017-12-24] MEDS ORDERED: IBUPROFEN 400 MG TABLET (FP) PO PRN (20:26)
[2017-12-24] MEDS ORDERED: LOPERAMIDE HCL 2 MG CAPSULE PO PRN (20:26)
[2017-12-24] MEDS ORDERED: P-EPHED 60MG/TRIPROLIDI 2.5MG TABLET PO PRN (20:26)
[2017-12-24] MEDS ORDERED: guaiFENesin/D-METHORPHAN HB 10 ML UNIT-DOSE CUPS PO PRN (20:26)
[2017-12-24] MEDS ORDERED: MAGNESIUM CITRATE 300 ML BOTTLE PO PRN (20:26)
[2017-12-24] MEDS ORDERED: MAG HYDROX/AL HYDROX/SIMETH 30 ML UNIT-DOSE CUP PO PRN (20:26)
[2017-12-24] MEDS ORDERED: MENTHOL/PHENOL 1 EACH UD MM PRN (20:26)
[2017-12-24] MEDS ORDERED: ALBUTEROL SO4 8 GM HFA INHALER IH PRN (20:27)
[2017-12-24] MEDS: THIAMINE HCL 100 MG TABLET (FP) PO SCH (22:10)
[2017-12-24] MEDS: chlordiazePOXIDE HCL 25 MG CAPSULE PO SCH (22:28)
[2017-12-24] MEDS: INSULIN (LEVEMIR) 100 UNITS/ML UNITS SQ SCH (22:41)
[2017-12-25] MEDS: chlordiazePOXIDE HCL 25 MG CAPSULE PO PRN ×2 (01:46→13:58)
[2017-12-25] MEDS: chlordiazePOXIDE HCL 25 MG CAPSULE PO SCH ×4 (05:29→22:48)
[2017-12-25] MEDS: PRENATAL VITAMINS W/ FOLIC ACID TABLET (FP) PO SCH (10:24)
[2017-12-25] MEDS: NICOTINE 14 MG/24 HOURS TOPICAL PATCH TD SCH (10:25)
[2017-12-25] MEDS: metFORMIN HCL 500 MG TABLET (FP) PO SCH ×2 (10:25→18:00)
[2017-12-25 10:53] LABS: MEAN CELL VOLUME 96.4 fl (80-96); MEAN PLT VOLUME 8.6 fl (7.5-11.1)
[2017-12-25 10:56] LABS: HEMATOCRIT 35.8 % (32.4-45.2); HEMOGLOBIN 11.9 GM/dL (10.7-15.3); MCH 32.1 pg (25.7-33.7); MCHC 33.3 g/dl (32.0-36.0); PLATELET COUNT 282 K/MM3 (134-434); RBC 3.71 M/mm3 (3.60-5.2); RDW 13.6 % (11.6-15.6); WHITE BLOOD COUNT 7.1 K/mm3 (4.0-10.0)
[2017-12-25 11:23] LABS: BLOOD UREA NITROGEN 12 mg/dL (7-18); CALCIUM 8.3 mg/dL (8.5-10.1); CHLORIDE 102 mmol/L (98-107); POTASSIUM 3.3 mmol/L (3.5-5.1); SODIUM 143 mmol/L (136-145)
[2017-12-25 11:28] LABS: ALBUMIN 3.4 g/dl (3.4-5.0); ALK PHOS 74 U/L (45-117); ANION GAP 12 MMOL/L (8-16); BILIRUBIN,TOTAL 0.7 mg/dL (0.2-1.0); CO2 29 mmol/L (21-32); CREATININE 0.8 mg/dL (0.55-1.3); SGOT/AST 21 U/L (15-37); SGPT/ALT 18 U/L (13-61); TOT PROT 6.6 g/dl (6.4-8.2)
[2017-12-25 11:37] LABS: GLUCOSE,RANDOM 46 mg/dL (74-106)
--- NOTE | 2017-12-25 14:08 | PN ---
S CIWA - CIWA Score Nausea/Vomitin-Mild Nausea/No Vomiting Muscle Tremors: 1-None Visible, but [place] Anxiety: 1-Mildly Anxious Agitation: 1-Slight > Activity Paroxysmal Sweats: No Perspiration Orientation: 0-Oriented Tacttile Disturbances: 0-None Auditory Disturbances: 0-None Visual Disturbances: 0-None Headache: 0-None Present CIWA-Ar Total Score: 4 BHS Progress Note (SOAP) Subjective: pt states she is feeling fine. Admitted yesterday for detox O: Vital Signs - 24 hr 12/24/17 12/25/17 12/25/17 22:10 07:36 08:45 Temperature 97.9 F 97.5 F L 97.5 F L Pulse Rate 80 75 70 Respiratory 18 18 18 Rate Blood Pressure 149/90 106/64 131/70 Laboratory Tests 12/24/17 12/25/17 12/25/17 22:38 05:31 07:50 WBC 7.1 RBC 3.71 Hgb 11.9 Hct 35.8 MCV 96.4 H MCH 32.1 MCHC 33.3 RDW 13.6 Plt Count 282 MPV 8.6 Sodium Potassium Chloride Carbon Dioxide Anion Gap BUN Creatinine Creat Clearance w eGFR POC Glucometer 178 74 Random Glucose Calcium Total Bilirubin AST ALT Alkaline Phosphatase Total Protein Albumin RPR Titer 12/25/17 12/25/17 12/25/17 07:50 07:50 11:15 WBC RBC Hgb Hct MCV MCH MCHC RDW Plt Count MPV Sodium 143 Potassium 3.3 L Chloride 102 Carbon Dioxide 29 Anion Gap 12 BUN 12 Creatinine 0.8 Creat Clearance w eGFR > 60 POC Glucometer 108 Random Glucose 46 L* Calcium 8.3 L Total Bilirubin 0.7 AST 21 ALT 18 Alkaline Phosphatase 74 Total Protein 6.6 Albumin 3.4 RPR Titer Nonreactive low b/s and low potassium a/p: continue detox protocol, pt doing well. replete potassium low b/s- pt without Sx
[2017-12-25] MEDS ORDERED: POTASSIUM CHLORIDE TABS 20 MEQ TABLET.ER (FP) PO ONE (15:00)
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
[2017-12-25 17:59] LABS: URINE APPEARANCE SLCLOUDY; URINE BILIRUBIN NEGATIVE (<2.0 mg/dL); URINE COLOR LTYELLOW; URINE GLUCOSE (UA) NEGATIVE (NEGATIVE); URINE KETONE NEGATIVE (NEGATIVE); URINE NITRITE NEGATIVE (NEGATIVE); URINE PROTEIN NEGATIVE (NEGATIVE); URINE UROBILINOGEN NEGATIVE mg/dL (0.2-1.0)
[2017-12-25 18:02] LABS: URINE LEUK ESTERASE 2+ (NEGATIVE)
[2017-12-25 18:03] LABS: EPI CELLS RARE /HPF (FEW)
[2017-12-25] MEDS ORDERED: POTASSIUM CHLORIDE ORAL LIQUID 20 MEQ/15 ML PO SCH (22:00)
[2017-12-25] MEDS: INSULIN (LEVEMIR) 100 UNITS/ML UNITS SQ SCH (23:31)
[2017-12-25] MEDS: POTASSIUM CHLORIDE TABS 20 MEQ TABLET.ER (FP) PO SCH (23:31)
[2017-12-25] MEDS: MIRTAZAPINE 15 MG TABLET (FP) PO SCH (23:32)
[2017-12-25] MEDS: THIAMINE HCL 100 MG TABLET (FP) PO SCH (23:32)
[2017-12-25] MEDS: QUEtiapine FUMARATE 50 MG TABLET PO SCH (23:32)
[2017-12-26] MEDS: MELATONIN 5 MG TABLETS PO PRN (01:54)
[2017-12-26] MEDS: chlordiazePOXIDE HCL 25 MG CAPSULE PO PRN ×2 (01:54→14:22)
[2017-12-26] MEDS: chlordiazePOXIDE HCL 25 MG CAPSULE PO SCH ×3 (06:09→18:04)
[2017-12-26] MEDS: MAGNESIUM HYDROX 2400MG/30ML ORAL SUSPENSION 30 ML CUP PO PRN ×2 (06:20→14:22)
[2017-12-26] MEDS: metFORMIN HCL 500 MG TABLET (FP) PO SCH ×2 (06:25→18:04)
[2017-12-26] MEDS: PRENATAL VITAMINS W/ FOLIC ACID TABLET (FP) PO SCH (10:13)
[2017-12-26] MEDS: NICOTINE 14 MG/24 HOURS TOPICAL PATCH TD SCH (10:13)
[2017-12-26] MEDS: POTASSIUM CHLORIDE TABS 20 MEQ TABLET.ER (FP) PO SCH ×3 (10:13→23:32)
[2017-12-26] MEDS: ESCITALOPRAM OXALATE 10 MG TABLET (FP) PO SCH (10:13)
[2017-12-26] MEDS: NICOTINE POLACRILEX 2 MG GUM BC PRN (10:14)
--- NOTE | 2017-12-26 11:51 | PN ---
[facility] CIWA - CIWA Score Nausea/Vomitin-No Nausea/No Vomiting Muscle Tremors: 3 Anxiety: 2 Agitation: 2 Paroxysmal Sweats: 1-Minimal Palms Moist Orientation: 1-Uncertain about Date Tacttile Disturbances: 1-Very Mild Itch/Numbness Auditory Disturbances: 0-None Visual Disturbances: 0-None Headache: 1-Very Mild CIWA-Ar Total Score: 11 S Progress Note (SOAP) Subjective: mild headache itchy tremor sweat hesitate to talk with staff disoriented to date Objective: 12/26/17 11:52 Vital Signs Temperature 97.0 F L 12/26/17 09:23 Pulse Rate 69 12/26/17 09:23 Respiratory Rate 16 12/26/17 09:23 Blood Pressure 102/79 12/26/17 09:23 O2 Sat by Pulse Oximetry (%) Laboratory Last Values WBC 7.1 K/mm3 (4.0-10.0) 12/25/17 07:50 RBC 3.71 M/mm3 (3.60-5.2) 12/25/17 07:50 Hgb 11.9 GM/dL (10.7-15.3) 12/25/17 07:50 Hct 35.8 % (32.4-45.2) 12/25/17 07:50 MCV 96.4 fl (80-96) H 12/25/17 07:50 MCH 32.1 pg (25.7-33.7) 12/25/17 07:50 MCHC 33.3 g/dl (32.0-36.0) 12/25/17 07:50 RDW 13.6 % (11.6-15.6) 12/25/17 07:50 Plt Count 282 K/MM3 (134-434) 12/25/17 07:50 MPV 8.6 fl (7.5-11.1) 12/25/17 07:50 Sodium 143 mmol/L (136-145) 12/25/17 07:50 Potassium 3.3 mmol/L (3.5-5.1) L 12/25/17 07:50 Chloride 102 mmol/L (98-107) 12/25/17 07:50 Carbon Dioxide 29 mmol/L (21-32) 12/25/17 07:50 Anion Gap 12 MMOL/L (8-16) 12/25/17 07:50 BUN 12 mg/dL (7-18) 12/25/17 07:50 Creatinine 0.8 mg/dL (0.55-1.3) 12/25/17 07:50 Creat Clearance w eGFR > 60 (>60) 12/25/17 07:50 POC Glucometer 130 UNITS (80-120) 12/26/17 06:21 Random Glucose 46 mg/dL (74-106) L* 12/25/17 07:50 Calcium 8.3 mg/dL (8.5-10.1) L 12/25/17 07:50 Total Bilirubin 0.7 mg/dL (0.2-1.0) 12/25/17 07:50 AST 21 U/L (15-37) 12/25/17 07:50 ALT 18 U/L (13-61) 12/25/17 07:50 Alkaline Phosphatase 74 U/L (45-117) 12/25/17 07:50 Total Protein 6.6 g/dl (6.4-8.2) 12/25/17 07:50 Albumin 3.4 g/dl (3.4-5.0) 12/25/17 07:50 Urine Color Ltyellow 12/25/17 14:45 Urine Appearance Slcloudy 12/25/17 14:45 Urine pH 6.0 (5.0-8.0) 12/25/17 14:45 Ur Specific [place] 1.008 (1.001-1.035) 12/25/17 14:45 Urine Protein Negative (NEGATIVE) 12/25/17 14:45 Urine Glucose (UA) Negative (NEGATIVE) 12/25/17 14:45 Urine Ketones Negative (NEGATIVE) 12/25/17 14:45 Urine Blood 1+ (NEGATIVE) H 12/25/17 14:45 Urine Nitrite Negative (NEGATIVE) 12/25/17 14:45 Urine Bilirubin Negative (<2.0 mg/dL) 12/25/17 14:45 Urine Urobilinogen Negative mg/dL (0.2-1.0) 12/25/17 14:45 Ur Leukocyte Esterase 2+ (NEGATIVE) H 12/25/17 14:45 Urine WBC (Auto) 89 /hpf (3-5) 12/25/17 14:45 Urine RBC (Auto) 1 /hpf (0-3) 12/25/17 14:45 Ur Epithelial Cells Rare /HPF (FEW) 12/25/17 14:45 RPR Titer Nonreactive (NONREACTIVE) 12/25/17 07:50 lab noted potassium uti Assessment: 12/26/17 11:55 withdrawal sx low K+ uti Plan: continue detox potassium bactrim ds
[2017-12-26] MEDS: SULFAMETHOXAZOLE/TRIMETHOPRIM 800MG/160MG D.S. TABLET PO SCH ×2 (12:36→23:30)
--- NOTE | 2017-12-26 22:33 | EKG ---
Test Reason : Blood Pressure : / mmHG Vent. Rate : 077 BPM Atrial Rate : 077 BPM P-R Int : 118 ms QRS Dur : 068 ms QT Int : 378 ms P-R-T Axes : 078 073 054 degrees QTc Int : 427 ms POOR DATA QUALITY, INTERPRETATION MAY BE ADVERSELY AFFECTED NORMAL SINUS RHYTHM WITH SINUS ARRHYTHMIA NORMAL ECG WHEN COMPARED WITH ECG OF 30-OCT-2017 21:48, QUESTIONABLE CHANGE IN QRS AXIS Confirmed by RUBEN TREVINO MD ([id number]) on 12/26/2017 10:33:25 PM Referred By: Confirmed By:RUBEN TREVINO MD
[2017-12-26] MEDS: THIAMINE HCL 100 MG TABLET (FP) PO SCH ×2 (22:39→23:32)
[2017-12-26] MEDS: MIRTAZAPINE 15 MG TABLET (FP) PO SCH ×2 (22:39→23:32)
[2017-12-26] MEDS: chlordiazePOXIDE 5 MG CAPSULE PO SCH (22:40)
[2017-12-26] MEDS: QUEtiapine FUMARATE 50 MG TABLET PO SCH (22:43)
[2017-12-26] MEDS: INSULIN (LEVEMIR) 100 UNITS/ML UNITS SQ SCH (22:45)
[2017-12-27] MEDS: MELATONIN 5 MG TABLETS PO PRN (02:09)
[2017-12-27] MEDS: chlordiazePOXIDE HCL 25 MG CAPSULE PO PRN ×2 (02:09→14:00)
[2017-12-27] MEDS: chlordiazePOXIDE 5 MG CAPSULE PO SCH ×3 (05:49→18:04)
[2017-12-27] MEDS: metFORMIN HCL 500 MG TABLET (FP) PO SCH ×2 (07:17→18:03)
[2017-12-27] MEDS: ESCITALOPRAM OXALATE 10 MG TABLET (FP) PO SCH (10:32)
[2017-12-27] MEDS: POTASSIUM CHLORIDE TABS 20 MEQ TABLET.ER (FP) PO SCH ×2 (10:32→22:58)
[2017-12-27] MEDS: SULFAMETHOXAZOLE/TRIMETHOPRIM 800MG/160MG D.S. TABLET PO SCH ×2 (10:32→22:31)
[2017-12-27] MEDS: PRENATAL VITAMINS W/ FOLIC ACID TABLET (FP) PO SCH (10:32)
[2017-12-27] MEDS: NICOTINE 14 MG/24 HOURS TOPICAL PATCH TD SCH (10:38)
[2017-12-27] MEDS: MAGNESIUM HYDROX 2400MG/30ML ORAL SUSPENSION 30 ML CUP PO PRN (12:20)
--- NOTE | 2017-12-27 14:17 | PN ---
BHS Progress Note (SOAP) Subjective: feeling better no tremor less sweat no gi distress sleep better at night Objective: 12/27/17 14:17 Vital Signs Temperature 97.7 F 12/27/17 13:21 Pulse Rate 87 12/27/17 13:21 Respiratory Rate 16 12/27/17 13:21 Blood Pressure 117/88 12/27/17 13:21 O2 Sat by Pulse Oximetry (%) Laboratory Last Values WBC 7.1 K/mm3 (4.0-10.0) 12/25/17 07:50 RBC 3.71 M/mm3 (3.60-5.2) 12/25/17 07:50 Hgb 11.9 GM/dL (10.7-15.3) 12/25/17 07:50 Hct 35.8 % (32.4-45.2) 12/25/17 07:50 MCV 96.4 fl (80-96) H 12/25/17 07:50 MCH 32.1 pg (25.7-33.7) 12/25/17 07:50 MCHC 33.3 g/dl (32.0-36.0) 12/25/17 07:50 RDW 13.6 % (11.6-15.6) 12/25/17 07:50 Plt Count 282 K/MM3 (134-434) 12/25/17 07:50 MPV 8.6 fl (7.5-11.1) 12/25/17 07:50 Sodium 143 mmol/L (136-145) 12/25/17 07:50 Potassium 3.3 mmol/L (3.5-5.1) L 12/25/17 07:50 Chloride 102 mmol/L (98-107) 12/25/17 07:50 Carbon Dioxide 29 mmol/L (21-32) 12/25/17 07:50 Anion Gap 12 MMOL/L (8-16) 12/25/17 07:50 BUN 12 mg/dL (7-18) 12/25/17 07:50 Creatinine 0.8 mg/dL (0.55-1.3) 12/25/17 07:50 Creat Clearance w eGFR > 60 (>60) 12/25/17 07:50 POC Glucometer 132 UNITS (80-120) 12/27/17 11:14 Random Glucose 46 mg/dL (74-106) L* 12/25/17 07:50 Calcium 8.3 mg/dL (8.5-10.1) L 12/25/17 07:50 Total Bilirubin 0.7 mg/dL (0.2-1.0) 12/25/17 07:50 AST 21 U/L (15-37) 12/25/17 07:50 ALT 18 U/L (13-61) 12/25/17 07:50 Alkaline Phosphatase 74 U/L (45-117) 12/25/17 07:50 Total Protein 6.6 g/dl (6.4-8.2) 12/25/17 07:50 Albumin 3.4 g/dl (3.4-5.0) 12/25/17 07:50 Urine Color Ltyellow 12/25/17 14:45 Urine Appearance Slcloudy 12/25/17 14:45 Urine pH 6.0 (5.0-8.0) 12/25/17 14:45 Ur Specific [place] 1.008 (1.001-1.035) 12/25/17 14:45 Urine Protein Negative (NEGATIVE) 12/25/17 14:45 Urine Glucose (UA) Negative (NEGATIVE) 12/25/17 14:45 Urine Ketones Negative (NEGATIVE) 12/25/17 14:45 Urine Blood 1+ (NEGATIVE) H 12/25/17 14:45 Urine Nitrite Negative (NEGATIVE) 12/25/17 14:45 Urine Bilirubin Negative (<2.0 mg/dL) 12/25/17 14:45 Urine Urobilinogen Negative mg/dL (0.2-1.0) 12/25/17 14:45 Ur Leukocyte Esterase 2+ (NEGATIVE) H 12/25/17 14:45 Urine WBC (Auto) 89 /hpf (3-5) 12/25/17 14:45 Urine RBC (Auto) 1 /hpf (0-3) 12/25/17 14:45 Ur Epithelial Cells Rare /HPF (FEW) 12/25/17 14:45 RPR Titer Nonreactive (NONREACTIVE) 12/25/17 07:50 lab noted continue K+ repeat K+ level 12/27/17 14:19 Assessment: 12/27/17 14:19 mild withdrawal sx Plan: medically supervised detox
[2017-12-27] MEDS: MIRTAZAPINE 15 MG TABLET (FP) PO SCH (22:31)
[2017-12-27] MEDS: chlordiazePOXIDE HCL 10 MG CAPSULE PO SCH (22:31)
[2017-12-27] MEDS: QUEtiapine FUMARATE 50 MG TABLET PO SCH (22:31)
[2017-12-27] MEDS: THIAMINE HCL 100 MG TABLET (FP) PO SCH (22:58)
[2017-12-27] MEDS: INSULIN (LEVEMIR) 100 UNITS/ML UNITS SQ SCH (22:59)
[2017-12-28] MEDS: MELATONIN 5 MG TABLETS PO PRN (01:15)
[2017-12-28] MEDS: chlordiazePOXIDE HCL 10 MG CAPSULE PO SCH ×2 (05:09→11:21)
[2017-12-28] MEDS: metFORMIN HCL 500 MG TABLET (FP) PO SCH (07:31)
--- NOTE | 2017-12-28 08:48 | DS ---
[facility] Detox Discharge Summary Admission Date: 12/24/17 Discharge Date: 12/28/17 - History Present History: Alcohol Dependence Additional Comments: 47 years old female admitted on 12/24/17 for alcohol withdrawal sx completed alcohol detox regimen tolerated well denies alcohol withdrawal sx alert oriented x 3 no acute discharge aftercare [facility] - Physical Exam Results Vital Signs: Vital Signs Temperature 96.8 F L 12/28/17 07:15 Pulse Rate 82 12/28/17 07:15 Respiratory Rate 18 12/28/17 07:15 Blood Pressure 106/68 12/28/17 07:15 O2 Sat by Pulse Oximetry (%) Pertinent Admission Physical Exam Findings: alcohol withdrawal sx Vital Signs Temperature 97.3 F L 12/28/17 09:47 Pulse Rate 75 12/28/17 09:47 Respiratory Rate 18 12/28/17 09:47 Blood Pressure 110/76 12/28/17 09:47 O2 Sat by Pulse Oximetry (%) Laboratory Last Values WBC 7.1 K/mm3 (4.0-10.0) 12/25/17 07:50 RBC 3.71 M/mm3 (3.60-5.2) 12/25/17 07:50 Hgb 11.9 GM/dL (10.7-15.3) 12/25/17 07:50 Hct 35.8 % (32.4-45.2) 12/25/17 07:50 MCV 96.4 fl (80-96) H 12/25/17 07:50 MCH 32.1 pg (25.7-33.7) 12/25/17 07:50 MCHC 33.3 g/dl (32.0-36.0) 12/25/17 07:50 RDW 13.6 % (11.6-15.6) 12/25/17 07:50 Plt Count 282 K/MM3 (134-434) 12/25/17 07:50 MPV 8.6 fl (7.5-11.1) 12/25/17 07:50 Sodium 143 mmol/L (136-145) 12/25/17 07:50 Potassium 3.3 mmol/L (3.5-5.1) L 12/25/17 07:50 Chloride 102 mmol/L (98-107) 12/25/17 07:50 Carbon Dioxide 29 mmol/L (21-32) 12/25/17 07:50 Anion Gap 12 MMOL/L (8-16) 12/25/17 07:50 BUN 12 mg/dL (7-18) 12/25/17 07:50 Creatinine 0.8 mg/dL (0.55-1.3) 12/25/17 07:50 Creat Clearance w eGFR > 60 (>60) 12/25/17 07:50 POC Glucometer 66 UNITS (80-120) 12/28/17 05:08 Random Glucose 46 mg/dL (74-106) L* 12/25/17 07:50 Calcium 8.3 mg/dL (8.5-10.1) L 12/25/17 07:50 Total Bilirubin 0.7 mg/dL (0.2-1.0) 12/25/17 07:50 AST 21 U/L (15-37) 12/25/17 07:50 ALT 18 U/L (13-61) 12/25/17 07:50 Alkaline Phosphatase 74 U/L (45-117) 12/25/17 07:50 Total Protein 6.6 g/dl (6.4-8.2) 12/25/17 07:50 Albumin 3.4 g/dl (3.4-5.0) 12/25/17 07:50 Urine Color Ltyellow 12/25/17 14:45 Urine Appearance Slcloudy 12/25/17 14:45 Urine pH 6.0 (5.0-8.0) 12/25/17 14:45 Ur Specific [place] 1.008 (1.001-1.035) 12/25/17 14:45 Urine Protein Negative (NEGATIVE) 12/25/17 14:45 Urine Glucose (UA) Negative (NEGATIVE) 12/25/17 14:45 Urine Ketones Negative (NEGATIVE) 12/25/17 14:45 Urine Blood 1+ (NEGATIVE) H 12/25/17 14:45 Urine Nitrite Negative (NEGATIVE) 12/25/17 14:45 Urine Bilirubin Negative (<2.0 mg/dL) 12/25/17 14:45 Urine Urobilinogen Negative mg/dL (0.2-1.0) 12/25/17 14:45 Ur Leukocyte Esterase 2+ (NEGATIVE) H 12/25/17 14:45 Urine WBC (Auto) 89 /hpf (3-5) 12/25/17 14:45 Urine RBC (Auto) 1 /hpf (0-3) 12/25/17 14:45 Ur Epithelial Cells Rare /HPF (FEW) 12/25/17 14:45 RPR Titer Nonreactive (NONREACTIVE) 12/25/17 07:50 lab noted K+ continue - Treatment Hospital Course: Detox Protocol Followed, Detoxed Safely, Responded well, Discharged Condition Good, Rehab Referral Accepted Patient has Accepted a Rehab Referral to: [facility] - Medication Discharge Medications: Ambulatory Orders Escitalopram Oxalate [Lexapro -] 10 mg PO DAILY #30 tablet 06/15/16 Quetiapine Fumarate [Seroquel -] 50 mg PO HS #30 tablet 04/17/17 Mirtazapine [Remeron -] 15 mg PO HS #30 tablet 08/23/17 Quetiapine Fumarate [Seroquel -] 100 mg PO HS #30 tablet 08/23/17 Albuterol Sulfate Inhaler - [Ventolin HFA Inhaler -] 2 inh IH Q4H PRN #1 inhaler 12/27/17 Insulin Glargine,Hum.rec.anlog [Lantus Solostar PEN -] 25 units SQ HS #1 ins Potassium Chloride [K-Dur -] 20 meq PO BID #60 tablet.er 12/27/17 metFORMIN HCL [Glucophage -] 500 mg PO BIDAC #30 tablet 12/27/17 Sulfamethoxazole/Trimethoprim [Bactrim DS -] 1 each PO BID #10 tablet 12/28/17 - Diagnosis (1) Alcohol dependence with uncomplicated withdrawal Status: Acute (2) Nicotine dependence Status: Acute Qualifiers: Nicotine product type: cigarettes Substance use status: in withdrawal Qualified Code(s): F17.213 - Nicotine dependence, cigarettes, with withdrawal (3) Substance induced mood disorder Status: Suspected (4) Weight loss Status: Acute (5) Asthma Status: Chronic Qualifiers: Asthma severity: mild Asthma persistence: intermittent Asthma complication type: with status asthmaticus Qualified Code(s): J45.22 - Mild intermittent asthma with status asthmaticus (6) Type II diabetes mellitus Status: Chronic Qualifiers: Diabetes mellitus custodial insulin use: with ferry terminal agent use Diabetes mellitus complication status: without complication Qualified Code(s): E11.9 - Type 2 diabetes mellitus without complications; Z79.4 - custodial (current) use of insulin - AMA Did Patient Leave Against Medical Advice: No
[2017-12-28 09:47] VITALS: BP 110/76; PULSE 75; TEMP 97.3
[2017-12-28] MEDS: ESCITALOPRAM OXALATE 10 MG TABLET (FP) PO SCH (11:20)
[2017-12-28] MEDS: POTASSIUM CHLORIDE TABS 20 MEQ TABLET.ER (FP) PO SCH (11:20)
[2017-12-28] MEDS: SULFAMETHOXAZOLE/TRIMETHOPRIM 800MG/160MG D.S. TABLET PO SCH (11:20)
[2017-12-28] MEDS: PRENATAL VITAMINS W/ FOLIC ACID TABLET (FP) PO SCH (11:21)
[2017-12-28] MEDS: NICOTINE 14 MG/24 HOURS TOPICAL PATCH TD SCH (11:21)
[2017-12-28] MEDS: NICOTINE POLACRILEX 2 MG GUM BC PRN (11:51)
== END 2017-12-28 11:48 | disposition home or self-care (01) | DRG 775 ==
LOC: YASAS 12:09 → Y6N 18:06
PROC: HZ2ZZZZ Detoxification Services for Substance Abuse Treatment (ICD-10-PCS; principal; 2017-12-24)
DX: F10.230 Alcohol dependence with withdrawal, uncomplicated (principal); F12.20 Cannabis dependence, uncomplicated; F17.213 Nicotine dependence, cigarettes, with withdrawal; F41.8 Other specified anxiety disorders; F19.24 Other psychoactive substance dependence with psychoactive substance-induced mood disorder; G47.00 Insomnia, unspecified; J45.22 Mild intermittent asthma with status asthmaticus; E11.3219 Type 2 diabetes mellitus with mild nonproliferative diabetic retinopathy with macular edema, unspecified eye; Z79.4 Long term (current) use of insulin; Z79.84 Long term (current) use of oral hypoglycemic drugs; E87.6 Hypokalemia; R63.4 Abnormal weight loss; Z68.22 Body mass index [BMI] 22.0-22.9, adult; Z91.013 Allergy to seafood; Z91.018 Allergy to other foods
CPT/HCPCS: 36415; 80053; 81003; 81015; 82962; 85027; 86593; 93005; 93010

== ENCOUNTER 2018-08-11 16:36 | Inpatient (IN) | payer OTHER ==
[2018-08-11 20:15] VITALS: BMI 27.5
--- NOTE | 2018-08-11 21:19 | HP ---
CIWA Score Nausea/Vomitin-Mild Nausea/No Vomiting Muscle Tremors: 4-Moderate,w/Arms Extend Anxiety: 4-Mod. Anxious/Guarded Agitation: 4-Moderately Restless Paroxysmal Sweats: 2 Orientation: 0-Oriented Tacttile Disturbances: 0-None Auditory Disturbances: 0-None Visual Disturbances: 0-None Headache: 3-Moderate CIWA-Ar Total Score: 18 - Admission Criteria OASAS Guidelines: Admission for Medically Managed Detox: Requires at least one of the followin. CIWA greater than 12 2. Seizures within the past 24 hours 3. Delirium tremens within the past 24 hours 4. Hallucinations within the past 24 hours 5. Acute intervention needed for co occurring medical disorder 6. Acute intervention needed for co occurring psychiatric disorder 7. Severe withdrawal that cannot be handled at a lower level of care (continued vomiting, continued diarrhea, abnormal vital signs) requiring intravenous medication and/or fluids 8. Admission ROS [facility] Chief Complaint: Alcohol withdrawal symptoms Allergies/Adverse Reactions: Allergies Allergy/AdvReac Type Severity Reaction Status Date / Time mustard Allergy Intermediate Hives Verified 12/24/17 17:35 shellfish derived Allergy Intermediate Hives Verified 12/24/17 17:35 thiamine (vitamin B1) Allergy Rash Verified 08/11/18 19:55 History of Present Illness: 48 years old female with a long history of alcohol dependence is seeking admission to detox. Patient has been in multiple detox last here at [facility] for the period 12/24/2018 - 12/28/2018. She reports insignificant period of sobriety. She has history of asthma, DM Type 2, depression and anxiety. She denies suicidal ideation at this time. Exam Limitations: No Limitations - Ebola screening Have you traveled outside of the country in the last 21 days: No Have you had contact with anyone from an Ebola affected area: No Have you been sick,other than usual withdrawal symptoms: No Do you have a fever: No - Review of Systems Constitutional: Chills, Loss of Appetite, Malaise, Changes in sleep EENT: reports: No Symptoms Reported Respiratory: reports: No Symptoms reported Cardiac: reports: No Symptoms Reported GI: reports: Poor Appetite, Poor Fluid Intake, Abdominal cramping : reports: No Symptoms Reported Musculoskeletal: reports: Back Pain Integumentary: reports: Dryness, Flushing Neuro: reports: Tremors Endocrine: reports: Intolerance to Heat Hematology: reports: No Symptoms Reported Psychiatric: reports: Anxious, Depressed Other Systems: Reviewed and Negative Patient History - Patient Medical History Hx Anemia: No Hx Asthma: Yes (MDI) Hx Chronic Obstructive Pulmonary Disease (COPD): No Hx Cancer: No Hx Cardiac Disorders: No Hx Congestive Heart Failure: No Hx Hypertension: No Hx Hypercholesterolemia: No Hx Pacemaker: No HX Cerebrovascular Accident: No Hx Seizures: No Hx Dementia: No Hx Diabetes: Yes (ON METFORMIN 500 MG BID AND LANTUS 25MG AT BEDTIME) Hx Gastrointestinal Disorders: No Hx Liver Disease: No Hx Genitourinary Disorders: No Hx Sexually Transmitted Disorders: No (DENIES) Hx Renal Disease (ESRD): No Hx Thyroid Disease: No Hx Human Immunodeficiency Virus (HIV): No (NEGATIVE HX last 08/27) Hx Hepatitis C: No Hx Depression: Yes (LEXAPRO) Hx Suicide Attempt: No (DENIES SUICIDAL ATTEMP/TSUICIDAL IDEATION) Hx Bipolar Disorder: No Hx Schizophrenia: No Other Medical History: ANXIETY-= NOT ON MEDICATION - Patient Surgical History Past Surgical History: Yes Hx Neurologic Surgery: No Hx Cataract Extraction: No Hx Cardiac Surgery: No Hx Lung Surgery: No Hx Breast Surgery: No Hx Breast Biopsy: No Hx Abdominal Surgery: No Hx Appendectomy: No Hx Cholecystectomy: No Hx Genitourinary Surgery: No Hx Section: Yes (x3 last 16 years ago) Hx Orthopedic Surgery: No Hx Hysterectomy: No Anesthesia Reaction: No - PPD History Previous Implant?: Yes Documented Results: Positive w/proof Implanted On Prior [facility] Admission?: Yes Date: 12/26/17 Results: 0 MM PPD to be Administered?: No - Reproductive History Patient is a Female of Child Bearing Age (11 -55 yrs old): Yes Last Menstrual Period: 06/13/18 Patient : No - Smoking Cessation Smoking history: Current every day smoker Have you smoked in the past 12 months: Yes Aproximately how many cigarettes per day: 10 If you are a former smoker, when did you quit?: NOVEMBER/2016 Cigars Per Day: 0 Hx Chewing Tobacco Use: No Initiated information on smoking cessation: Yes 'Breaking Loose' booklet given: 08/11/18 - Substance & Tx. History Hx Alcohol Use: Yes Hx Substance Use: Yes Substance Use Type: Alcohol, Cocaine, Marijuana Hx Substance Use Treatment: Yes ([facility] - Substances abused Alcohol Substance route: Oral Frequency: Daily Amount used: Liquor 1-2 pint Age of first use: 16 Date of last use: 08/11/18 Family Disease History - Family Disease History Family Disease History: Diabetes: Father (HTN,HYPERCHOLESTEROLEMIA), Mother (HTN ,HYPERCHOLESTEROLEMIA), Heart Disease: Father, Mother Admission Physical Exam [facility] - Vital Signs Vital Signs: Vital Signs - 24 hr 08/11/18 19:50 Temperature 97.3 F L Pulse Rate 91 H Respiratory 20 Rate Blood Pressure 123/90 - Physical General Appearance: Yes: Cachetic, Tremorous, Anxious HEENTM: Yes: EOMI, Normal ENT Inspection, Normal Voice, [place]O, Microcephalic Respiratory: Yes: Normal Breath Sounds, No Respiratory Distress Neck: Yes: Supple Breast: Yes: Breast Exam Deferred Cardiology: Yes: Regular Rhythm, Regular Rate Abdominal: Yes: Normal Bowel Sounds Genitourinary: Yes: Within Normal Limits Back: Yes: Normal Inspection Musculoskeletal: Yes: Within Normal Limits Extremities: Yes: Tremors Neurological: Yes: tax 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 assistant II-XII NML intact, Alert, Normal Mood/Affect Integumentary: Yes: Warm Lymphatic: Yes: Within Normal Limits - Diagnostic (1) Alcohol dependence with uncomplicated withdrawal Current Visit: Yes Status: Chronic (2) Contact dermatitis Current Visit: Yes Status: Chronic (3) Marijuana dependence Current Visit: Yes Status: Chronic (4) Nicotine dependence Current Visit: Yes Status: Chronic Qualifiers: Nicotine product type: cigarettes Substance use status: uncomplicated Qualified Code(s): F17.210 - Nicotine dependence, cigarettes, uncomplicated (5) Anxiety and depression Current Visit: Yes Status: Chronic (6) Asthma Current Visit: Yes Status: Chronic Qualifiers: Asthma severity: mild Asthma persistence: intermittent Asthma complication type: with status asthmaticus Qualified Code(s): J45.22 - Mild intermittent asthma with status asthmaticus (7) Depression Current Visit: Yes Status: Chronic Cleared for Admission [facility] - Detox or Rehab [facility] Level of Care: Medically Managed Detox Regimen/Protocol: Librium Breathalyzer - Breathalyzer Breathalyzer: 0 Urine Drug Screen - Test Device Lot number: [id number] Expiration date: 03/11/20 - Control Is test valid?: Yes - Results Drug screen NEGATIVE: No Urine drug screen results: THC-Marijuana, ANNITA-Cocaine, BZO-Benzodiazepines Inpatient Rehab Admission - Rehab Decision to Admit Inpatient rehab admission?: No
[2018-08-11] MEDS ORDERED: ACETAMINOPHEN 325 MG TABLET (FP) PO PRN ×2 (21:30)
[2018-08-11] MEDS ORDERED: MENTHOL/PHENOL 1 EACH UD MM PRN (21:30)
[2018-08-11] MEDS ORDERED: chlordiazePOXIDE HCL 25 MG CAPSULE PO PRN (21:30)
[2018-08-11] MEDS ORDERED: IBUPROFEN 400 MG TABLET (FP) PO PRN (21:30)
[2018-08-11] MEDS ORDERED: METHOCARBAMOL 500 MG TABLET PO PRN (21:30)
[2018-08-11] MEDS ORDERED: hydrOXYzine PAMOATE 25 MG CAPSULE (FP) PO PRN (21:30)
[2018-08-11] MEDS ORDERED: BISMUTH SUBSALICYLATE 524 MG/30 ML UD PO PRN (21:30)
[2018-08-11] MEDS ORDERED: MELATONIN 5 MG TABLETS PO PRN (21:30)
[2018-08-11] MEDS ORDERED: MAGNESIUM CITRATE 300 ML BOTTLE PO PRN (21:30)
[2018-08-11] MEDS ORDERED: MAG HYDROX/AL HYDROX/SIMETH 30 ML UNIT-DOSE CUP PO PRN (21:30)
[2018-08-11] MEDS ORDERED: ALBUTEROL SO4 8 GM HFA INHALER IH PRN (21:32)
[2018-08-11] MEDS ORDERED: THIAMINE HCL 100 MG TABLET (FP) PO SCH (22:00)
[2018-08-11] MEDS: INSULIN (LEVEMIR) 100 UNITS/ML UNITS SQ SCH (22:45)
[2018-08-11] MEDS: chlordiazePOXIDE HCL 25 MG CAPSULE PO SCH (22:46)
[2018-08-12] MEDS: chlordiazePOXIDE HCL 25 MG CAPSULE PO SCH ×4 (06:00→22:14)
[2018-08-12] MEDS: metFORMIN HCL 500 MG TABLET (FP) PO SCH ×2 (09:06→17:16)
[2018-08-12] MEDS: NICOTINE 14 MG/24 HOURS TOPICAL PATCH TD SCH (09:07)
[2018-08-12] MEDS ORDERED: PRENATAL VITAMINS W/ FOLIC ACID TABLET (FP) PO SCH (10:00)
[2018-08-12 10:14] LABS: HEMATOCRIT 35.3 % (32.4-45.2); HEMOGLOBIN 11.6 GM/dL (10.7-15.3); MCH 31.4 pg (25.7-33.7); MEAN CELL VOLUME 95.3 fl (80-96); MEAN PLT VOLUME 8.9 fl (7.5-11.1); PLATELET COUNT 268 K/MM3 (134-434); RBC 3.71 M/mm3 (3.60-5.2); RDW 13.3 % (11.6-15.6); WHITE BLOOD COUNT 6.5 K/mm3 (4.0-10.0)
[2018-08-12 10:30] LABS: ALBUMIN 3.4 g/dl (3.4-5.0); ALK PHOS 94 U/L (45-117); ANION GAP 5 MMOL/L (8-16); BILIRUBIN,TOTAL 0.1 mg/dL (0.2-1); BLOOD UREA NITROGEN 19 mg/dL (7-18); CALCIUM 9.1 mg/dL (8.5-10.1); CHLORIDE 103 mmol/L (98-107); CO2 31 mmol/L (21-32); CREATININE 0.8 mg/dL (0.55-1.3); GLUCOSE,RANDOM 90 mg/dL (74-106); POTASSIUM 4.1 mmol/L (3.5-5.1); SGOT/AST 20 U/L (15-37); SGPT/ALT 21 U/L (13-61); SODIUM 138 mmol/L (136-145); TOT PROT 6.5 g/dl (6.4-8.2)
--- NOTE | 2018-08-12 10:58 | EKG ---
Test Reason : Blood Pressure : / mmHG Vent. Rate : 093 BPM Atrial Rate : 093 BPM P-R Int : 126 ms QRS Dur : 082 ms QT Int : 376 ms P-R-T Axes : 066 064 033 degrees QTc Int : 467 ms NORMAL SINUS RHYTHM NORMAL ECG WHEN COMPARED WITH ECG OF 24-DEC-2017 21:34, T WAVE AMPLITUDE HAS DECREASED IN LATERAL LEADS Confirmed by PIA MORENO MD ([id number]) on 08/12/2018 10:58:27 AM Referred By: Confirmed By:PIA MORENO MD
--- NOTE | 2018-08-12 12:13 | PN ---
S CIWA - CIWA Score Nausea/Vomitin-Mild Nausea/No Vomiting Muscle Tremors: 2 Anxiety: 2 Agitation: 2 Paroxysmal Sweats: 2 Orientation: 0-Oriented Tacttile Disturbances: 0-None Auditory Disturbances: 0-None Visual Disturbances: 0-None Headache: 0-None Present CIWA-Ar Total Score: 9 BHS Progress Note (SOAP) Subjective: pt states doing well with the alcohol detox protocol, pt states has allergic reaction to B1 vitamins, states she would like treatment for eczema of her hand O: Vital Signs - 24 hr 08/11/18 08/11/18 08/12/18 19:50 22:40 00:30 Temperature 97.3 F L 97.5 F L Pulse Rate 91 H 97 H Respiratory 20 18 18 Rate Blood Pressure 123/90 116/74 08/12/18 08/12/18 08/12/18 03:30 06:44 09:20 Temperature 96.8 F L 96.4 F L Pulse Rate 83 89 Respiratory 18 18 18 Rate Blood Pressure 106/72 126/76 R hand with thickened, scaly area of R hand dorsal aspect, thumb and first finger Laboratory Tests 08/11/18 08/12/18 08/12/18 22:38 06:00 07:00 WBC 6.5 RBC 3.71 Hgb 11.6 Hct 35.3 MCV 95.3 MCH 31.4 MCHC 33.0 RDW 13.3 Plt Count 268 MPV 8.9 Sodium Potassium Chloride Carbon Dioxide Anion Gap BUN Creatinine Creat Clearance w eGFR POC Glucometer 274 85 Random Glucose Calcium Total Bilirubin AST ALT Alkaline Phosphatase Total Protein Albumin RPR Titer 08/12/18 08/12/18 08/12/18 07:00 07:00 11:55 WBC RBC Hgb Hct MCV MCH MCHC RDW Plt Count MPV Sodium 138 Potassium 4.1 Chloride 103 Carbon Dioxide 31 Anion Gap 5 L BUN 19 H Creatinine 0.8 Creat Clearance w eGFR 76.24 POC Glucometer 152 Random Glucose 90 Calcium 9.1 Total Bilirubin 0.1 L AST 20 ALT 21 Alkaline Phosphatase 94 Total Protein 6.5 Albumin 3.4 RPR Titer Nonreactive labs WNL a/p continue alcohol detox protocol d/c vitamins hydrocortisone oint for eczema of hand
[2018-08-12] MEDS: HYDROCORTISONE 0.5% TOPICAL OINTMENT TUBE TP SCH ×2 (14:27→22:16)
--- NOTE | 2018-08-12 14:33 | CONSULT ---
[facility] Psychiatric Consult - Data Date of interview: 08/12/18 Admission source: [facility] Identifying data: Readmission to [facility] for this 48 y/o female self- referred for detoxification treatment (alcohol, cannabis, cocaine). Admitted to [address] [place] [address]. Patient is , a mother of three (variable number of dependents is claimed at each new encounter), domiciled, unemployed and supported on Public Assistance. Substance Abuse History: Confirmed by the patient in this session. Details in current [facility] report : Smoking history: Current every day smoker. Have you smoked in the past 12 months: Yes. Aproximately how many cigarettes per day: 10. If you are a former smoker, when did you quit?: NOVEMBER/2016. Cigars Per Day: 0. Hx Chewing Tobacco Use: No. Initiated information on smoking cessation : Yes. 'Breaking Loose' booklet given: 08/11/18. - Substance & Tx. History. Hx Alcohol Use: Yes. Hx Substance Use: Yes. Substance Use Type: Alcohol, Cocaine, Marijuana. Hx Substance Use Treatment: Yes ([facility] - Substances abused. Alcohol. Substance route: Oral. Frequency: Daily. Amount used: Liquor 1-2 pint. Age of first use: 16. Date of last use: 08/11/18 Medical History: Remarkable for diabetes mellitus, bronchial asthma and a history of three sections. Psychiatric History: No reported history of psychiatric hospitalizations. Patient reports seeing a psychiatrist for medication management at a mental health clinic in the [place]. Prescribed lexapro + seroquel (doses not recalled). Diagnosed with Anxiety Disorder + MDD. Patient denies history of suicide attempts. Physical/Sexual Abuse/Trauma History: Patient denies. Additional Comment: Urine drug screen results: THC-Marijuana, ANNITA-Cocaine, BZO- Benzodiazepines. Noted. Mental Status Exam - Mental Status Exam Alert and Oriented to: Time, Place, Person Cognitive Function: Good Patient Appearance: Well Groomed Mood: Nervous, Withdrawn Affect: Appropriate, Mood Congruent, Normal Range Patient Behavior: Fatigued, Appropriate, Cooperative Speech Pattern: Clear, Appropriate Voice Loudness: Normal Thought Process: Intact, Goal Oriented Thought Disorder: Not Present Hallucinations: Denies Suicidal Ideation: Denies Homicidal Ideation: Denies Insight/Judgement: Poor Sleep: Poorly, Difficulty falling asleep Appetite: Good Muscle strength/Tone: Normal Gait/Station: Normal Psychiatric Findings - Problem List ([place] 1, 2,3) (1) Alcohol dependence with uncomplicated withdrawal Current Visit: Yes Status: Acute (2) Cocaine dependence Current Visit: Yes Status: Chronic Qualifiers: Substance use status: uncomplicated Qualified Code(s): F14.20 - Cocaine dependence, uncomplicated (3) Marijuana dependence Current Visit: Yes Status: Chronic (4) Nicotine dependence Current Visit: Yes Status: Chronic Qualifiers: Nicotine product type: cigarettes Substance use status: uncomplicated Qualified Code(s): F17.210 - Nicotine dependence, cigarettes, uncomplicated (5) Substance induced mood disorder Current Visit: Yes Status: Chronic (6) History of depression Current Visit: Yes Status: Chronic (7) Insomnia Current Visit: Yes Status: Chronic (8) Non-compliance Current Visit: Yes Status: Chronic - Initial Treatment Plan Initial Treatment Plan: Psychoeducation. Sleep hygiene. Detoxification. Seroquel 50 mg po hs + lexapro 10 mg po daily. Side effects/benefits of both drugs are discussed with the patient. AA meetings. Ms Mcmullen expresses her agreement with this plan of care. Observation.
[2018-08-12] MEDS ORDERED: traZODone HCL 50 MG TABLET (FP) PO SCH (22:00)
[2018-08-12] MEDS: QUEtiapine FUMARATE 50 MG TABLET PO SCH (22:14)
[2018-08-12] MEDS: INSULIN (LEVEMIR) 100 UNITS/ML UNITS SQ SCH (22:17)
[2018-08-13] MEDS: MAGNESIUM HYDROX 2400MG/30ML ORAL SUSPENSION 30 ML CUP PO PRN ×2 (00:28→12:31)
[2018-08-13] MEDS: chlordiazePOXIDE HCL 25 MG CAPSULE PO SCH ×3 (05:28→17:16)
[2018-08-13] MEDS: metFORMIN HCL 500 MG TABLET (FP) PO SCH ×2 (06:45→18:39)
[2018-08-13] MEDS: ESCITALOPRAM OXALATE 10 MG TABLET (FP) PO SCH (10:27)
[2018-08-13] MEDS: HYDROCORTISONE 0.5% TOPICAL OINTMENT TUBE TP SCH ×2 (10:27→22:05)
[2018-08-13] MEDS: NICOTINE 14 MG/24 HOURS TOPICAL PATCH TD SCH (10:27)
--- NOTE | 2018-08-13 14:52 | PN ---
S CIWA - CIWA Score Nausea/Vomitin-No Nausea/No Vomiting Muscle Tremors: 4-Moderate,w/Arms Extend Anxiety: 4-Mod. Anxious/Guarded Agitation: 4-Moderately Restless Paroxysmal Sweats: 1-Minimal Palms Moist Orientation: 0-Oriented Tacttile Disturbances: 0-None Auditory Disturbances: 0-None Visual Disturbances: 0-None Headache: 0-None Present CIWA-Ar Total Score: 13 S Progress Note (SOAP) Subjective: C/O HOT/COLD SWEATS,NAUSEA, INTERMITTENT SLEEP. Objective: 08/13/18 14:51 Vital Signs 08/13/18 08/13/18 09:35 13:27 Temperature 97.6 F 97.8 F Pulse Rate 87 94 H Respiratory 18 20 Rate Blood Pressure 103/64 118/71 Laboratory Tests 08/11/18 08/12/18 08/12/18 22:38 06:00 07:00 WBC 6.5 RBC 3.71 Hgb 11.6 Hct 35.3 MCV 95.3 MCH 31.4 MCHC 33.0 RDW 13.3 Plt Count 268 MPV 8.9 Sodium Potassium Chloride Carbon Dioxide Anion Gap BUN Creatinine Creat Clearance w eGFR POC Glucometer 274 85 Random Glucose Calcium Total Bilirubin AST ALT Alkaline Phosphatase Total Protein Albumin RPR Titer 08/12/18 08/12/18 08/12/18 07:00 07:00 11:55 WBC RBC Hgb Hct MCV MCH MCHC RDW Plt Count MPV Sodium 138 Potassium 4.1 Chloride 103 Carbon Dioxide 31 Anion Gap 5 L BUN 19 H Creatinine 0.8 Creat Clearance w eGFR 76.24 POC Glucometer 152 Random Glucose 90 Calcium 9.1 Total Bilirubin 0.1 L AST 20 ALT 21 Alkaline Phosphatase 94 Total Protein 6.5 Albumin 3.4 RPR Titer Nonreactive 08/12/18 08/12/18 08/13/18 16:40 21:45 05:27 WBC RBC Hgb Hct MCV MCH MCHC RDW Plt Count MPV Sodium Potassium Chloride Carbon Dioxide Anion Gap BUN Creatinine Creat Clearance w eGFR POC Glucometer 152 168 79 Random Glucose Calcium Total Bilirubin AST ALT Alkaline Phosphatase Total Protein Albumin RPR Titer Assessment: 08/13/18 14:51 WITHDRAWAL SX Plan: CONTINUE DETOX INCREASE PO FLUIDS
[2018-08-13] MEDS: chlordiazePOXIDE HCL 10 MG CAPSULE PO SCH (22:04)
[2018-08-13] MEDS: QUEtiapine FUMARATE 50 MG TABLET PO SCH (22:04)
[2018-08-13] MEDS: INSULIN (LEVEMIR) 100 UNITS/ML UNITS SQ SCH (22:05)
[2018-08-14] MEDS: MAGNESIUM HYDROX 2400MG/30ML ORAL SUSPENSION 30 ML CUP PO PRN (00:26)
[2018-08-14] MEDS: chlordiazePOXIDE HCL 10 MG CAPSULE PO SCH ×4 (06:27→22:08)
[2018-08-14] MEDS: metFORMIN HCL 500 MG TABLET (FP) PO SCH ×2 (07:33→16:47)
[2018-08-14] MEDS: ESCITALOPRAM OXALATE 10 MG TABLET (FP) PO SCH (10:14)
[2018-08-14] MEDS: NICOTINE 14 MG/24 HOURS TOPICAL PATCH TD SCH (10:14)
[2018-08-14] MEDS: HYDROCORTISONE 0.5% TOPICAL OINTMENT TUBE TP SCH ×2 (10:14→22:12)
[2018-08-14] MEDS: NICOTINE POLACRILEX 2 MG GUM BUC PRN ×2 (10:16→16:49)
[2018-08-14] MEDS: chlordiazePOXIDE HCL 10 MG CAPSULE PO PRN ×2 (13:56→18:56)
--- NOTE | 2018-08-14 14:17 | PN ---
S CIWA - CIWA Score Nausea/Vomitin-Mild Nausea/No Vomiting Muscle Tremors: 2 Anxiety: 2 Agitation: 2 Paroxysmal Sweats: 1-Minimal Palms Moist Orientation: 0-Oriented Tacttile Disturbances: 0-None Auditory Disturbances: 0-None Visual Disturbances: 0-None Headache: 0-None Present CIWA-Ar Total Score: 8 BHS Progress Note (SOAP) Subjective: feeling better today hesitate to discuss aftercare and relapse prevention Objective: 08/14/18 14:18 Vital Signs Temperature 98 F 08/14/18 13:37 Pulse Rate 97 H 08/14/18 13:37 Respiratory Rate 20 08/14/18 13:37 Blood Pressure 134/80 08/14/18 13:37 O2 Sat by Pulse Oximetry (%) Laboratory Last Values WBC 6.5 K/mm3 (4.0-10.0) 08/12/18 07:00 RBC 3.71 M/mm3 (3.60-5.2) 08/12/18 07:00 Hgb 11.6 GM/dL (10.7-15.3) 08/12/18 07:00 Hct 35.3 % (32.4-45.2) 08/12/18 07:00 MCV 95.3 fl (80-96) 08/12/18 07:00 MCH 31.4 pg (25.7-33.7) 08/12/18 07:00 MCHC 33.0 g/dl (32.0-36.0) 08/12/18 07:00 RDW 13.3 % (11.6-15.6) 08/12/18 07:00 Plt Count 268 K/MM3 (134-434) 08/12/18 07:00 MPV 8.9 fl (7.5-11.1) 08/12/18 07:00 Sodium 138 mmol/L (136-145) 08/12/18 07:00 Potassium 4.1 mmol/L (3.5-5.1) 08/12/18 07:00 Chloride 103 mmol/L (98-107) 08/12/18 07:00 Carbon Dioxide 31 mmol/L (21-32) 08/12/18 07:00 Anion Gap 5 MMOL/L (8-16) L 08/12/18 07:00 BUN 19 mg/dL (7-18) H 08/12/18 07:00 Creatinine 0.8 mg/dL (0.55-1.3) 08/12/18 07:00 Creat Clearance w eGFR 76.24 (>60) 08/12/18 07:00 POC Glucometer 84 UNITS (80-120) 08/14/18 06:22 Random Glucose 90 mg/dL (74-106) 08/12/18 07:00 Calcium 9.1 mg/dL (8.5-10.1) 08/12/18 07:00 Total Bilirubin 0.1 mg/dL (0.2-1) L 08/12/18 07:00 AST 20 U/L (15-37) 08/12/18 07:00 ALT 21 U/L (13-61) 08/12/18 07:00 Alkaline Phosphatase 94 U/L (45-117) 08/12/18 07:00 Total Protein 6.5 g/dl (6.4-8.2) 08/12/18 07:00 Albumin 3.4 g/dl (3.4-5.0) 08/12/18 07:00 POC Urine HCG, Qual Negative 08/11/18 15:12 RPR Titer Nonreactive (NONREACTIVE) 08/12/18 07:00 lab noted Assessment: 08/14/18 14:19 alcohol withdrawal sx eczema has dermatologis appointment on 09/05/18 Plan: continue detox hydrocortison cream
[2018-08-14] MEDS: INSULIN (LEVEMIR) 100 UNITS/ML UNITS SQ SCH (22:08)
[2018-08-14] MEDS: QUEtiapine FUMARATE 50 MG TABLET PO SCH (22:08)
[2018-08-15] MEDS: metFORMIN HCL 500 MG TABLET (FP) PO SCH (06:23)
[2018-08-15 09:23] VITALS: BP 145/87; PULSE 109; TEMP 97
[2018-08-15] MEDS: NICOTINE POLACRILEX 2 MG GUM BUC PRN (10:07)
[2018-08-15] MEDS: HYDROCORTISONE 0.5% TOPICAL OINTMENT TUBE TP SCH (10:07)
[2018-08-15] MEDS: chlordiazePOXIDE HCL 10 MG CAPSULE PO SCH (10:07)
[2018-08-15] MEDS: NICOTINE 14 MG/24 HOURS TOPICAL PATCH TD SCH (10:07)
[2018-08-15] MEDS: ESCITALOPRAM OXALATE 10 MG TABLET (FP) PO SCH (10:07)
--- NOTE | 2018-08-15 12:56 | DS ---
[facility] Detox Discharge Summary Admission Date: 08/11/18 Discharge Date: 08/15/18 - History Present History: Alcohol Dependence Additional Comments: 48 years old female admitted on 08/11/18 for alcohol withdrawal stabilization completed detox regimen aftercare [facility] out patient alcohol rehab Pertinent Past History: bring in medication list and lab report to aftercare appointment - Physical Exam Results Vital Signs: Vital Signs Temperature 97.0 F L 08/15/18 09:22 Pulse Rate 109 H 08/15/18 09:22 Respiratory Rate 20 08/15/18 09:22 Blood Pressure 145/87 08/15/18 09:22 O2 Sat by Pulse Oximetry (%) Pertinent Admission Physical Exam Findings: alcohol withdrawal sx Laboratory Last Values WBC 6.5 K/mm3 (4.0-10.0) 08/12/18 07:00 RBC 3.71 M/mm3 (3.60-5.2) 08/12/18 07:00 Hgb 11.6 GM/dL (10.7-15.3) 08/12/18 07:00 Hct 35.3 % (32.4-45.2) 08/12/18 07:00 MCV 95.3 fl (80-96) 08/12/18 07:00 MCH 31.4 pg (25.7-33.7) 08/12/18 07:00 MCHC 33.0 g/dl (32.0-36.0) 08/12/18 07:00 RDW 13.3 % (11.6-15.6) 08/12/18 07:00 Plt Count 268 K/MM3 (134-434) 08/12/18 07:00 MPV 8.9 fl (7.5-11.1) 08/12/18 07:00 Sodium 138 mmol/L (136-145) 08/12/18 07:00 Potassium 4.1 mmol/L (3.5-5.1) 08/12/18 07:00 Chloride 103 mmol/L (98-107) 08/12/18 07:00 Carbon Dioxide 31 mmol/L (21-32) 08/12/18 07:00 Anion Gap 5 MMOL/L (8-16) L 08/12/18 07:00 BUN 19 mg/dL (7-18) H 08/12/18 07:00 Creatinine 0.8 mg/dL (0.55-1.3) 08/12/18 07:00 Creat Clearance w eGFR 76.24 (>60) 08/12/18 07:00 POC Glucometer 140 UNITS (80-120) 08/15/18 06:19 Random Glucose 90 mg/dL (74-106) 08/12/18 07:00 Calcium 9.1 mg/dL (8.5-10.1) 08/12/18 07:00 Total Bilirubin 0.1 mg/dL (0.2-1) L 08/12/18 07:00 AST 20 U/L (15-37) 08/12/18 07:00 ALT 21 U/L (13-61) 08/12/18 07:00 Alkaline Phosphatase 94 U/L (45-117) 08/12/18 07:00 Total Protein 6.5 g/dl (6.4-8.2) 08/12/18 07:00 Albumin 3.4 g/dl (3.4-5.0) 08/12/18 07:00 POC Urine HCG, Qual Negative 08/11/18 15:12 RPR Titer Nonreactive (NONREACTIVE) 08/12/18 07:00 lab noted - Treatment Hospital Course: Detox Protocol Followed, Detoxed Safely, Responded well, Discharged Condition Good, Rehab Referral Accepted Patient has Accepted a Rehab Referral to: [place] [facility] - Medication Discharge Medications: Ambulatory Orders Escitalopram Oxalate [Lexapro -] 10 mg PO DAILY #30 tablet 06/15/16 Mirtazapine [Remeron -] 15 mg PO HS #30 tablet 08/23/17 Insulin Glargine,Hum.rec.anlog [Lantus Solostar PEN -] 25 units SQ HS #1 ins traZODone HCL [Trazodone HCl] 50 mg PO HS 08/11/18 Albuterol Sulfate Inhaler - [Ventolin HFA Inhaler -] 2 inh IH Q4H PRN #1 inhaler 08/14/18 metFORMIN HCL [Glucophage -] 500 mg PO BIDAC #30 tablet 08/14/18 - Diagnosis (1) Alcohol dependence with uncomplicated withdrawal Status: Acute (2) Asthma Status: Chronic Qualifiers: Asthma severity: mild Asthma persistence: intermittent Asthma complication type: with status asthmaticus Qualified Code(s): J45.22 - Mild intermittent asthma with status asthmaticus (3) Nicotine dependence Status: Acute Qualifiers: Nicotine product type: cigarettes Substance use status: in withdrawal Qualified Code(s): F17.213 - Nicotine dependence, cigarettes, with withdrawal (4) Substance induced mood disorder Status: Suspected (5) Type II diabetes mellitus Status: Chronic Qualifiers: Diabetes mellitus ferry terminal agent insulin use: with ferry terminal agent use Diabetes mellitus complication status: without complication Qualified Code(s): E11.9 - Type 2 diabetes mellitus without complications; Z79.4 - halfway (current) use of insulin - AMA Did Patient Leave Against Medical Advice: No
== END 2018-08-15 10:25 | disposition home or self-care (01) | DRG 774 ==
LOC: YASAS 16:36 → Y3N 21:30
PROVIDERS: ADMIT Surgery; ATTEND Surgery
PROC: HZ2ZZZZ Detoxification Services for Substance Abuse Treatment (ICD-10-PCS; principal; 2018-08-11)
DX: F10.230 Alcohol dependence with withdrawal, uncomplicated (principal); F14.20 Cocaine dependence, uncomplicated; F12.20 Cannabis dependence, uncomplicated; F17.213 Nicotine dependence, cigarettes, with withdrawal; F32.9 Major depressive disorder, single episode, unspecified; F41.8 Other specified anxiety disorders; J45.22 Mild intermittent asthma with status asthmaticus; G47.00 Insomnia, unspecified; E11.9 Type 2 diabetes mellitus without complications; Z79.4 Long term (current) use of insulin; L30.9 Dermatitis, unspecified; Z91.19 Patient's noncompliance with other medical treatment and regimen
CPT/HCPCS: 36415; 80053; 81025; 82962; 85027; 86593; 93005; 93010

== ENCOUNTER 2022-02-21 10:26 | Inpatient (IN) | payer OTHER ==
[2022-02-21] MEDS ORDERED: NICOTINE 10 MG CARTRIDGE (INHALER) IH PRN (12:06)
[2022-02-21] MEDS ORDERED: BISMUTH SUBSALICYLATE 524 MG/30 ML PO PRN (12:06)
[2022-02-21] MEDS ORDERED: hydrOXYzine PAMOATE 25 MG CAPSULE (FP) PO PRN (12:06)
[2022-02-21] MEDS ORDERED: BENZOCAINE/MENTHOL (CHLORASEPTIC ) LOZENGE MM PRN (12:06)
[2022-02-21] MEDS ORDERED: ONDANSETRON *ODT* 4 MG TABLET SL PRN (12:06)
[2022-02-21] MEDS ORDERED: MAG HYDROX/AL HYDROX/SIMETH 30 ML UNIT-DOSE CUP PO PRN (12:06)
[2022-02-21] MEDS ORDERED: ACETAMINOPHEN 325 MG TABLET (FP) PO PRN ×2 (12:06)
[2022-02-21] MEDS ORDERED: LOPERAMIDE HCL 2 MG CAPSULE PO PRN (12:06)
[2022-02-21] MEDS ORDERED: IBUPROFEN 400 MG TABLET (FP) PO PRN (12:06)
[2022-02-21 12:19] VITALS: BMI 24.5
[2022-02-21] MEDS: chlordiazePOXIDE HCL 25 MG CAPSULE PO PRN (14:01)
[2022-02-21] MEDS ORDERED: ALBUTEROL SO4 HFA INHALER IH PRN (16:58)
[2022-02-21] MEDS: INSULIN SLIDING SCALE (NOVOLOG) 1 VIAL SQ SCH (17:19)
[2022-02-21] MEDS: chlordiazePOXIDE HCL 25 MG CAPSULE PO SCH ×2 (18:40→22:16)
[2022-02-21] MEDS: QUEtiapine FUMARATE 50 MG TABLET PO SCH (22:16)
[2022-02-21] MEDS: MELATONIN 5 MG TABLETS PO SCH (22:16)
[2022-02-21] MEDS: INSULIN (LEVEMIR) 100 UNITS/ML UNITS SQ SCH (22:18)
[2022-02-22] MEDS: IBUPROFEN 600 MG TABLET (FP) PO PRN (01:40)
[2022-02-22] MEDS: METHOCARBAMOL 500 MG TABLET PO PRN (01:40)
[2022-02-22] MEDS: chlordiazePOXIDE HCL 25 MG CAPSULE PO PRN (01:44)
[2022-02-22] MEDS: chlordiazePOXIDE HCL 25 MG CAPSULE PO SCH ×4 (05:45→22:14)
[2022-02-22] MEDS: metFORMIN HCL 500 MG TABLET (FP) PO SCH ×2 (06:56→17:06)
[2022-02-22] MEDS: INSULIN SLIDING SCALE (NOVOLOG) 1 VIAL SQ SCH ×3 (07:02→17:07)
[2022-02-22] MEDS: ESCITALOPRAM OXALATE 10 MG TABLET PO SCH (10:17)
[2022-02-22 12:27] LABS: HEMATOCRIT 36.4 % (32.4-45.2); HEMOGLOBIN 12.3 GM/dL (10.7-15.3); MCH 32.3 pg (25.7-33.7); MCHC 33.7 g/dl (32.0-36.0); MEAN CELL VOLUME 95.8 fl (80-96); MEAN PLT VOLUME 8.9 fl (7.5-11.1); PLATELET COUNT 313 10^3/uL (134-434); RDW 12.6 % (11.6-15.6); WHITE BLOOD COUNT 8.2 K/mm3 (4.0-10.0)
[2022-02-22 12:30] LABS: CALCIUM 9.2 mg/dL (8.5-10.1)
[2022-02-22 12:31] LABS: ALBUMIN 3.2 g/dl (3.4-5.0); BLOOD UREA NITROGEN 14.3 mg/dL (7-18)
[2022-02-22 12:35] LABS: BILIRUBIN,TOTAL 0.3 mg/dL (0.2-1); TOT PROT 6.4 g/dl (6.4-8.2)
[2022-02-22] MEDS: MAGNESIUM HYDROX 2400MG/30ML ORAL SUSPENSION 30 ML CUP PO PRN (14:40)
[2022-02-22] MEDS: INSULIN (LEVEMIR) 100 UNITS/ML UNITS SQ SCH (21:50)
[2022-02-22] MEDS: MELATONIN 5 MG TABLETS PO SCH (22:15)
[2022-02-22] MEDS: QUEtiapine FUMARATE 50 MG TABLET PO SCH (22:15)
[2022-02-23] MEDS: chlordiazePOXIDE HCL 25 MG CAPSULE PO PRN (01:03)
[2022-02-23] MEDS: DICYCLOMINE HCL 10 MG CAPSULE PO PRN ×2 (01:06→22:14)
[2022-02-23] MEDS: chlordiazePOXIDE HCL 25 MG CAPSULE PO SCH ×4 (05:33→22:12)
[2022-02-23] MEDS: metFORMIN HCL 500 MG TABLET (FP) PO SCH ×2 (06:24→17:53)
[2022-02-23] MEDS: INSULIN SLIDING SCALE (NOVOLOG) 1 VIAL SQ SCH ×3 (06:24→17:20)
[2022-02-23] MEDS: ESCITALOPRAM OXALATE 10 MG TABLET PO SCH (10:23)
[2022-02-23] MEDS ORDERED: FLU VACC QS2022-23(6MOS UP)/PF 60 MCG/0.5 ML SYRINGE IM ONE (12:00)
[2022-02-23] MEDS: CEPHALEXIN MONOHYDRATE 500 MG CAPSULE (UD) PO SCH ×2 (15:47→22:12)
[2022-02-23] MEDS: MAGNESIUM HYDROX 2400MG/30ML ORAL SUSPENSION 30 ML CUP PO PRN (15:51)
[2022-02-23] MEDS: METHOCARBAMOL 500 MG TABLET PO PRN (17:56)
[2022-02-23] MEDS: INSULIN (LEVEMIR) 100 UNITS/ML UNITS SQ SCH (21:46)
[2022-02-23] MEDS: NEOMYCIN/POLYMYXN/HC OTIC SUSPENSION 10 ML BOTTLE AU SCH (21:59)
[2022-02-23] MEDS: MELATONIN 5 MG TABLETS PO SCH (22:11)
[2022-02-23] MEDS: QUEtiapine FUMARATE 50 MG TABLET PO SCH (22:12)
[2022-02-24] MEDS ORDERED: chlordiazePOXIDE HCL 10 MG CAPSULE PO PRN
[2022-02-24] MEDS: HYDROCORTISONE 2.5% TOPICAL CREAM 30 GM TUBE TP ONE ×2 (00:01→00:14)
[2022-02-24] MEDS: chlordiazePOXIDE HCL 10 MG CAPSULE PO SCH ×4 (05:31→22:28)
[2022-02-24] MEDS: metFORMIN HCL 500 MG TABLET (FP) PO SCH ×2 (06:48→17:42)
[2022-02-24] MEDS: CEPHALEXIN MONOHYDRATE 500 MG CAPSULE (UD) PO SCH ×3 (06:49→22:27)
[2022-02-24] MEDS: INSULIN SLIDING SCALE (NOVOLOG) 1 VIAL SQ SCH ×3 (06:50→17:43)
[2022-02-24] MEDS: HYDROCORTISONE 2.5% TOPICAL CREAM 30 GM TUBE TP SCH ×2 (10:38→21:27)
[2022-02-24] MEDS: ESCITALOPRAM OXALATE 10 MG TABLET PO SCH (10:38)
[2022-02-24] MEDS: NEOMYCIN/POLYMYXN/HC OTIC SUSPENSION 10 ML BOTTLE AU SCH ×2 (10:38→21:28)
[2022-02-24] MEDS: METHOCARBAMOL 500 MG TABLET PO PRN ×2 (10:42→22:30)
[2022-02-24] MEDS: MAGNESIUM HYDROX 2400MG/30ML ORAL SUSPENSION 30 ML CUP PO PRN (14:48)
[2022-02-24] MEDS: INSULIN (LEVEMIR) 100 UNITS/ML UNITS SQ SCH (21:23)
[2022-02-24] MEDS: MELATONIN 5 MG TABLETS PO SCH (22:27)
[2022-02-24] MEDS: QUEtiapine FUMARATE 50 MG TABLET PO SCH (22:28)
[2022-02-25] MEDS: IBUPROFEN 600 MG TABLET (FP) PO PRN (04:16)
[2022-02-25] MEDS ORDERED: chlordiazePOXIDE HCL 10 MG CAPSULE PO SCH (05:00)
[2022-02-25] MEDS: CEPHALEXIN MONOHYDRATE 500 MG CAPSULE (UD) PO SCH (06:01)
[2022-02-25] MEDS: metFORMIN HCL 500 MG TABLET (FP) PO SCH (06:01)
[2022-02-25] MEDS: INSULIN SLIDING SCALE (NOVOLOG) 1 VIAL SQ SCH (07:27)
[2022-02-25] MEDS: ESCITALOPRAM OXALATE 10 MG TABLET PO SCH (09:19)
[2022-02-25] MEDS: NEOMYCIN/POLYMYXN/HC OTIC SUSPENSION 10 ML BOTTLE AU SCH (09:19)
[2022-02-25] MEDS: HYDROCORTISONE 2.5% TOPICAL CREAM 30 GM TUBE TP SCH (09:19)
[2022-02-25 09:32] VITALS: BP 104/63; PULSE 108; RESP 16; TEMP 97.7
[2022-02-26] MEDS ORDERED: chlordiazePOXIDE HCL 10 MG CAPSULE PO ONE (05:00)
== END 2022-02-25 09:40 | disposition home or self-care (01) | DRG 774 ==
LOC: YASAS 10:26 → Y3N 13:02
PROVIDERS: ADMIT Allergy & Immunology; ATTEND Surgery
PROC: HZ2ZZZZ Detoxification Services for Substance Abuse Treatment (ICD-10-PCS; principal; 2022-02-21)
DX: F10.230 Alcohol dependence with withdrawal, uncomplicated (principal); F14.20 Cocaine dependence, uncomplicated; F12.20 Cannabis dependence, uncomplicated; F17.210 Nicotine dependence, cigarettes, uncomplicated; F19.24 Other psychoactive substance dependence with psychoactive substance-induced mood disorder; F41.9 Anxiety disorder, unspecified; F32.A Depression, unspecified; G47.00 Insomnia, unspecified; I10 Essential (primary) hypertension; E78.2 Mixed hyperlipidemia; E11.9 Type 2 diabetes mellitus without complications; Z79.84 Long term (current) use of oral hypoglycemic drugs; N89.8 Other specified noninflammatory disorders of vagina; M54.50 Low back pain, unspecified; G89.29 Other chronic pain
CPT/HCPCS: 36415; 80053; 81025; 82962; 85027; 86780; 87811; C9803-CS; Q2036; U0003; U0005

== ENCOUNTER 2023-08-01 12:32 | Inpatient (IN) | payer OTHER ==
[2023-08-01 13:04] VITALS: BMI 21.2
[2023-08-01] MEDS ORDERED: ALBUTEROL SO4 HFA INHALER IH PRN (17:22)
[2023-08-01] MEDS ORDERED: ACETAMINOPHEN 325 MG TABLET (FP) PO PRN (17:32)
[2023-08-01] MEDS ORDERED: BISMUTH SUBSALICYLATE 524 MG/30 ML PO PRN (17:32)
[2023-08-01] MEDS ORDERED: NALOXONE HCL 0.4 MG/ML VIAL IM PRN (17:32)
[2023-08-01] MEDS ORDERED: guaiFENesin 600 MG TABLET.ER (FP) PO PRN (17:32)
[2023-08-01] MEDS ORDERED: NALOXONE HCL (KLOXXADO) 8 MG SPRAY NS PRN (17:32)
[2023-08-01] MEDS ORDERED: BENZONATATE 200 MG CAPSULE PO PRN (17:32)
[2023-08-01] MEDS ORDERED: INSULIN (NOVOLOG) ASPART 100 UNITS/ML 10ML VIAL ONE ×2 (17:53→17:55)
[2023-08-01] MEDS: INSULIN (NOVOLOG) ASPART 100 UNITS/ML 10ML VIAL SQ ONE (19:10)
[2023-08-01] MEDS: chlordiazePOXIDE HCL 25 MG CAPSULE PO PRN (19:36)
[2023-08-01] MEDS: chlordiazePOXIDE HCL 25 MG CAPSULE PO SCH (22:39)
[2023-08-01] MEDS: MELATONIN 5 MG TABLETS PO SCH (22:40)
[2023-08-01] MEDS: INSULIN ASPART SLIDING SCALE (NOVOLOG) 1 VIAL SQ SCH (22:40)
[2023-08-01] MEDS: INSULIN (LEVEMIR) 100 UNITS/ML UNITS SQ SCH (22:40)
[2023-08-01] MEDS: THIAMINE 100 MG TABLET PO SCH (22:40)
[2023-08-01] MEDS: METHOCARBAMOL 500 MG TABLET PO PRN (22:41)
[2023-08-02] MEDS: IBUPROFEN 600 MG TABLET (FP) PO PRN (03:36)
[2023-08-02] MEDS ORDERED: INSULIN ASPART SLIDING SCALE (NOVOLOG) 1 VIAL SQ ONE (07:21)
[2023-08-02] MEDS: PETROLATUM, WHITE 30 GM TUBE TP SCH (10:14)
[2023-08-02] MEDS: PRENATAL VITAMINS W/ FOLIC ACID TABLET (FP) PO SCH (10:14)
[2023-08-02] MEDS: NICOTINE 21 MG/24 HOURS TOPICAL PATCH TD SCH (10:14)
[2023-08-02] MEDS: FLU VACCINE (FLULAVAL) PF 60 MCG/0.5 ML SYRINGE 2023-2024 IM ONE (10:50)
[2023-08-02 11:47] LABS: MCH 31.9 pg (25.7-33.7); MCHC 33.5 g/dl (32.0-36.0); MEAN CELL VOLUME 95.5 fl (80-96); MEAN PLT VOLUME 8.8 fl (7.5-11.1); PLATELET COUNT 360 10^3/uL (134-434); RBC 4.08 M/mm3 (3.60-5.2); RDW 12.9 % (11.6-15.6); WHITE BLOOD COUNT 8.8 K/mm3 (4.0-10.0)
[2023-08-02 11:50] LABS: CHLORIDE 106 mmol/L (98-107); SODIUM 141 mmol/L (136-145)
[2023-08-02 11:56] LABS: ANION GAP 5 mmol/L (4-13); BLOOD UREA NITROGEN 19.4 mg/dL (7-18); CALCIUM 9.7 mg/dL (8.5-10.1); CO2 30 mmol/L (21-32); GLUCOSE,RANDOM 144 mg/dL (74-106)
[2023-08-02 11:58] LABS: ALBUMIN 3.6 g/dl (3.4-5.0)
[2023-08-02 12:00] LABS: CREATININE 0.8 mg/dL (0.55-1.3); SGOT/AST 21 U/L (15-37)
[2023-08-02 12:01] LABS: BILIRUBIN,TOTAL 0.3 mg/dL (0.2-1); TOT PROT 7.3 g/dl (6.4-8.2)
[2023-08-02 12:02] LABS: ALK PHOS 116 U/L (45-117)
[2023-08-02 12:10] LABS: SGPT/ALT 32 U/L (13-61)
[2023-08-02] MEDS ORDERED: BISMUTH SUBSALICYLATE 262 MG/15 ML BTL PO PRN (14:19)
[2023-08-02] MEDS: MAGNESIUM HYDROX 2400MG/30ML ORAL SUSPENSION 30 ML CUP PO PRN (18:27)
[2023-08-02] MEDS: SENNOSIDES 8.6MG TABLET (FP) PO SCH (22:06)
[2023-08-02] MEDS: QUEtiapine FUMARATE 50 MG TABLET PO SCH (22:48)
[2023-08-02] MEDS: MIRTAZAPINE 15 MG TABLET (FP) PO SCH (22:48)
[2023-08-02] MEDS: POLYETHYLENE GLYCOL (HEALTHYLAX) 3350 17 GM PACKET PO PRN (23:30)
[2023-08-03] MEDS: hydrOXYzine PAMOATE 25 MG CAPSULE (FP) PO PRN (02:06)
[2023-08-03] MEDS: chlordiazePOXIDE HCL 25 MG CAPSULE PO SCH (05:55)
[2023-08-03] MEDS: MAG HYDROX/AL HYDROX/SIMETH 30 ML UNIT-DOSE CUP PO PRN (11:06)
[2023-08-03] MEDS: LISINOPRIL 5 MG TABLET PO SCH (11:39)
[2023-08-03] MEDS: ONDANSETRON *ODT* 4 MG TABLET SL PRN (11:40)
[2023-08-03] MEDS: FLUTICASONE PROP 0.05% 16 GM NASAL SPRAY NS SCH (11:51)
[2023-08-03] MEDS: DICYCLOMINE HCL 10 MG CAPSULE PO PRN (15:41)
[2023-08-03] MEDS: metFORMIN HCL 500 MG TABLET (FP) PO SCH (17:19)
[2023-08-04] MEDS: BENZOCAINE/MENTHOL (CHLORASEPTIC ) LOZENGE MM PRN (04:16)
[2023-08-04] MEDS: chlordiazePOXIDE HCL 10 MG CAPSULE PO SCH (05:30)
[2023-08-04] MEDS: chlordiazePOXIDE HCL 10 MG CAPSULE PO PRN (07:54)
[2023-08-04] MEDS: DOCUSATE SODIUM 100 MG CAPSULE (FP) PO SCH (13:30)
[2023-08-05] MEDS: chlordiazePOXIDE HCL 10 MG CAPSULE PO SCH (05:46)
[2023-08-05] MEDS ORDERED: INSULIN ASPART SLIDING SCALE (NOVOLOG) 1 VIAL SQ ONE (06:44)
[2023-08-05] MEDS: LACTULOSE 20 GM/30 ML UDC (FOR ORAL USE ONLY) PO ONE (09:12)
[2023-08-06] MEDS: IBUPROFEN 400 MG TABLET (FP) PO PRN (02:10)
[2023-08-06] MEDS: chlordiazePOXIDE HCL 10 MG CAPSULE PO ONE (06:00)
[2023-08-06 09:01] VITALS: BP 118/76; PULSE 76; RESP 18; TEMP 98.1
[2023-08-06] MEDS: LOPERAMIDE HCL 2 MG CAPSULE PO PRN (09:18)
== END 2023-08-06 09:25 | disposition home or self-care (01) | DRG 775 ==
LOC: YASAS 12:32 → Y3N 16:34
PROVIDERS: ADMIT Allergy & Immunology; ATTEND Surgery
PROC: HZ2ZZZZ Detoxification Services for Substance Abuse Treatment (ICD-10-PCS; principal; 2023-08-01)
DX: F10.230 Alcohol dependence with withdrawal, uncomplicated (principal); F12.20 Cannabis dependence, uncomplicated; F17.210 Nicotine dependence, cigarettes, uncomplicated; F19.24 Other psychoactive substance dependence with psychoactive substance-induced mood disorder; F32.9 Major depressive disorder, single episode, unspecified; F41.9 Anxiety disorder, unspecified; F51.05 Insomnia due to other mental disorder; E78.5 Hyperlipidemia, unspecified; I10 Essential (primary) hypertension; E10.65 Type 1 diabetes mellitus with hyperglycemia; Z79.4 Long term (current) use of insulin; Z79.84 Long term (current) use of oral hypoglycemic drugs; R63.4 Abnormal weight loss; Z68.22 Body mass index [BMI] 22.0-22.9, adult
CPT/HCPCS: 36415; 80053; 80307; 82140; 82962; 83036; 85027; 86780; 90686; 93005; 93010; G0008; Q0162

== ENCOUNTER 2024-11-06 13:38 | Inpatient (IN) | payer OTHER ==
[2024-11-06] MEDS ORDERED: POLYETHYLENE GLYCOL (HEALTHYLAX) 3350 17 GM PACKET PO PRN (16:47)
[2024-11-06] MEDS ORDERED: guaiFENesin 600 MG TABLET.ER (FP) PO PRN (16:47)
[2024-11-06] MEDS ORDERED: LOPERAMIDE HCL 2 MG CAPSULE PO PRN (16:47)
[2024-11-06] MEDS ORDERED: ACETAMINOPHEN 325 MG TABLET (FP) PO PRN (16:47)
[2024-11-06] MEDS ORDERED: BENZOCAINE/MENTHOL (CHLORASEPTIC ) LOZENGE MM PRN (16:47)
[2024-11-06] MEDS ORDERED: NICOTINE POLACRILEX 2 MG LOZENGE BC PRN (16:47)
[2024-11-06] MEDS ORDERED: BENZONATATE 200 MG CAPSULE PO PRN (16:47)
[2024-11-06] MEDS ORDERED: NICOTINE POLACRILEX 2 MG GUM BUC PRN (16:47)
[2024-11-06] MEDS ORDERED: MAG HYDROX/AL HYDROX/SIMETH 30 ML UNIT-DOSE CUP PO PRN (16:47)
[2024-11-06] MEDS ORDERED: ALBUTEROL SO4 HFA INHALER IH PRN (16:49)
[2024-11-06] MEDS ORDERED: INSULIN ASPART SLIDING SCALE (NOVOLOG) 1 VIAL SQ ONE (17:30)
[2024-11-06] MEDS: INSULIN ASPART SLIDING SCALE (NOVOLOG) 1 VIAL SQ SCH (17:37)
[2024-11-06] MEDS: MAGNESIUM HYDROX 2400MG/30ML ORAL SUSPENSION 30 ML CUP PO PRN (17:37)
[2024-11-06] MEDS: IBUPROFEN 600 MG TABLET (FP) PO PRN (17:37)
[2024-11-06] MEDS: THIAMINE 100 MG TABLET PO SCH (21:24)
[2024-11-06] MEDS: MELATONIN 5 MG TABLETS PO SCH (21:24)
[2024-11-06] MEDS: MIRTAZAPINE 15 MG TABLET (FP) PO SCH (21:25)
[2024-11-06] MEDS: hydrOXYzine PAMOATE 25 MG CAPSULE (FP) PO PRN (21:27)
[2024-11-06] MEDS ORDERED: PATIENT'S OWN MEDICATION (NON-FORMULARY) (Insulin Glargine,Hum.Rec.Anlog 100 UNITS/ML Ins) SQ SCH (22:00)
[2024-11-06] MEDS: INSULIN GLARGINE (LANTUS) 100 UNITS/ML UNITS SQ SCH (23:55)
[2024-11-07] MEDS: METHOCARBAMOL 500 MG TABLET PO PRN (02:15)
[2024-11-07] MEDS: IBUPROFEN 400 MG TABLET (FP) PO PRN (02:16)
[2024-11-07] MEDS: PRENATAL VITAMINS W/ FOLIC ACID TABLET (FP) PO SCH (05:44)
[2024-11-07] MEDS: glipiZIDE 5 MG TABLET (FP) PO SCH (06:38)
[2024-11-07] MEDS: LISINOPRIL 5 MG TABLET PO SCH (10:33)
[2024-11-07 13:03] VITALS: BP 112/74; PULSE 70; RESP 14; TEMP 97.6
== END 2024-11-07 11:01 | disposition home or self-care (01) | DRG 772 ==
LOC: YASAS 13:38 → Y3NR 13:39
PROVIDERS: ADMIT Psychiatry & Neurology Pain Medicine; ATTEND Psychiatry & Neurology Pain Medicine
PROC: HZ42ZZZ Group Counseling for Substance Abuse Treatment, Cognitive-Behavioral (ICD-10-PCS; principal; 2024-11-06)
DX: F10.20 Alcohol dependence, uncomplicated (principal); F17.210 Nicotine dependence, cigarettes, uncomplicated; F31.9 Bipolar disorder, unspecified; F19.282 Other psychoactive substance dependence with psychoactive substance-induced sleep disorder; F19.24 Other psychoactive substance dependence with psychoactive substance-induced mood disorder; F41.8 Other specified anxiety disorders; E78.5 Hyperlipidemia, unspecified; I10 Essential (primary) hypertension; E11.9 Type 2 diabetes mellitus without complications; Z79.84 Long term (current) use of oral hypoglycemic drugs; Z79.4 Long term (current) use of insulin; J45.909 Unspecified asthma, uncomplicated; M54.50 Low back pain, unspecified; G89.29 Other chronic pain
CPT/HCPCS: 82962